=== PATIENT | female | born 1980 | race Caucasian/White ===

== ENCOUNTER 2019-10-09 13:11 | Emergency (ER) | payer MEDICAID ==
[~2019-10-09] VITALS: Ht 172.7 cm; Wt 122.5 kg
[2019-10-09] MEDS ORDERED: KEPPRA500 MG PO (13:36)
[2019-10-09] MEDS ORDERED: METHADONE HCL5 MG PO (13:37)
[2019-10-09] MEDS ORDERED: BUTALB-ACETAMI1 EACH PO (13:38)
[2019-10-09] MEDS ORDERED: PROTONIX40 MG PO (13:39)
[2019-10-09] MEDS ORDERED: CEFDINIR300 MG PO (18:13)
[2019-10-09] MEDS ORDERED: ONDANSETRON ODT8 MG PO (18:13)
== END 2019-10-09 18:32 | disposition home or self-care (01) ==
LOC: ED 13:11
DX: N39.0 Urinary tract infection, site not specified (principal); Z87.891 Personal history of nicotine dependence; Z91.030 Bee allergy status; Z88.6 Allergy status to analgesic agent; Z88.0 Allergy status to penicillin; Z79.899 Other long term (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
CPT/HCPCS: 36415; 74176; 80053; 81001; 84703; 85025; 96374; 96375; 96376; 99284-25; J0696; J1170; J2405; J7030

== ENCOUNTER 2019-12-15 18:58 | Emergency (ER) | payer SELFPAY ==
[~2019-12-15] VITALS: Ht 172.7 cm; Wt 122.5 kg
[~2019-12-15 18:58] MED LIST: BUTALB-ACETAMI1 EACH PO; CEFDINIR300 MG PO; KEPPRA500 MG PO; METHADONE HCL5 MG PO; ONDANSETRON ODT8 MG PO; PROTONIX40 MG PO
--- OUTSIDE RECORDS SUMMARY | 2019-12-15 19:00 | XMS ---
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 Guidelines Source: [facility] Guidelines Date: 04/02/2019 Care Recommendation: Florence is enrolled in the Health Home program through Coordinated [facility]. Her caser up is Kami Santamaria Vamp Throater 1 (RN). For assistance with care coordination please contact Kami at [phone] or email [email or web address]. [email or web address]. She is available Monday Thru Monday from 8am to 5pm. If Kami is not available please contact [facility] at [phone] and ask for the Case Management Department. Additional care guidelines exist for the following facilities: [facility] ( 11/04/2019 ) [facility] ( 09/02/2019 ) Care History Medical/Surgical 10/29/2019 [facility] WRONG PHONE NUMBER Please update patient phone number when seen. CHW needs to contact patient E.D. VISIT COUNT (12 MO.) 1 [facility] 2 [facility] [address] 3 [facility] TOTAL 12 NOTE: Visits indicate total known visits. ED/UCC VISIT TRACKING (12 MO.) 12/15/2019 18:[address] [facility] [place] TYPE: Emergency COMPLAINT: - VOMITING 10/24/2019 17:17 [facility]DR[facility] [place] TYPE: Emergency COMPLAINT: - SOB/COUGH DIAGNOSES: - Acute bronchitis due to other specified organisms - Personal history of nicotine dependence - Allergy status to penicillin - Bee allergy status - Cough - Other long term care phlebotomist (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 10/09/2019 13:12 SANDR[facility] Stuart TYPE: Emergency COMPLAINT: - ABD PAIN, URINE PROBLEM DIAGNOSES: - Allergy status to analgesic agent status - Allergy status to penicillin - Bee allergy status - Urinary tract infection, site not specified - Other fdc (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 - Personal history of nicotine dependence 08/30/2019 08:54 Manuel CERDA TYPE: Emergency DIAGNOSES: - Medics - Seizures - Epilepsy, unspecified, not intractable, without status epilep 07/08/2019 18:44 Manuel [facility] TYPE: Emergency DIAGNOSES: - Nausea/vomiting - Foreign body of alimentary tract, part unspecified, initial e - VOMITING 07/06/2019 10:34 [facility] TYPE: Emergency DIAGNOSES: - Chest Pain - EMESIS; COLLAR BONE PAIN - Chest pain, unspecified - Personal history of retained foreign body fully removed - Nausea with vomiting, unspecified - Gastro-esophageal reflux disease without esophagitis - Cough 07/03/2019 17:20 Manuel [facility] TYPE: Emergency DIAGNOSES: - Bronchitis, not specified as acute or chronic - chest pain 07/02/2019 13:17 Manuel [facility] TYPE: Emergency DIAGNOSES: - Chest Pain - Chest pain, unspecified - CP / R EYE PROBLEM 05/10/2019 11:19 Manuel [facility] TYPE: Emergency DIAGNOSES: - Other chest pain - Chest Pain 02/13/2019 15:13 [place] [facility] TYPE: Emergency DIAGNOSES: - Unspecified abdominal pain - Foreign body of alimentary tract, part unspecified, initial e - Other fecal abnormalities 02/03/2019 12:34 [facility] TYPE: Emergency DIAGNOSES: - CP/JAW PAIN - Chest pain, unspecified - Chest Pain - Unspecified lump in unspecified breast 02/01/2019 19:44 [place] [facility] TYPE: Emergency DIAGNOSES: - Abnormal electrocardiogram [ECG] [EKG] INPATIENT VISIT TRACKING (12 MO.) 07/08/2019 18:44 Manuel [facility] TYPE: Inpatient DIAGNOSES: - Foreign body of alimentary tract, part unspecified, initial e 02/13/2019 15:13 [place] [facility] TYPE: Medical Surgical DIAGNOSES: - Other fecal abnormalities - Foreign body of alimentary tract, part unspecified, initial e - Urinary tract infection, site not specified - Unspecified abdominal pain [email or web address]
[2019-12-15] MEDS ORDERED: PROTONIX40 MG PO (19:09)
[2019-12-15] MEDS ORDERED: ONDANSETRON ODT8 MG PO (20:33)
[2019-12-15] MEDS ORDERED: ULTRAM50 MG PO (20:33)
[2019-12-15] MEDS ORDERED: NORCO 5-325 TA1 EACH PO (20:58)
--- NOTE | 2019-12-16 11:24 | EKG ---
[facility] [address] [facility] [place] [address] abnormality in inferolateral leads. Abnormal ECG When compared with ECG of 24-OCT-2019 18:37, T wave inversion more evident in Inferior leads T wave inversion now evident in Lateral leads Confirmed by SHERRELL SHEIKH MD ([id number]) on 12/16/2019 11:24:18 AM Electronically Signed By: SHERRELL SHEIKH MD 12/16/19 1124 PATIENT NAME: FLORENCE NERI Electrocardiogram DATE OF : 84 PHYSICIAN: SHERRELL SHEIHK MD REPORT #: [id number] REPORT IS CONFIDENTIAL AND NOT TO BE RELEASED WITHOUT AUTHORIZATION
== END 2019-12-15 21:24 | disposition home or self-care (01) ==
LOC: ED 18:58
DX: M94.0 Chondrocostal junction syndrome [Tietze] (principal); G43.909 Migraine, unspecified, not intractable, without status migrainosus; Z88.0 Allergy status to penicillin; Z91.030 Bee allergy status; Z88.8 Allergy status to other drugs, medicaments and biological substances; Z79.899 Other long term (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
CPT/HCPCS: 71045; 80053; 81001; 83735; 84484; 85025; 93005; 93010; 96361; 96374; 96375; 99285-25; C9113; J1170; J2405; J7030

== ENCOUNTER 2019-12-31 17:44 | Emergency (ER) | payer SELFPAY ==
[~2019-12-31] VITALS: Ht 172.7 cm; Wt 108.9 kg
[~2019-12-31 17:44] MED LIST changes: +NORCO 5-325 TA1 EACH PO; +ULTRAM50 MG PO
--- OUTSIDE RECORDS SUMMARY | 2019-12-31 17:48 | XMS ---
PreManage Notification: FLORENCE NERI Security Heel Padder Events No recent Security Events currently on file CRITERIA MET - Group Notification - 6 ED Visits in 6 Months - [facility] - Has Care Guidelines - PDMP - [facility] - 2 Visits in 30 Days CARE PROVIDERS There are no care providers on record at this time. Guidelines Source: [facility] Guidelines Date: 04/02/2019 Care Recommendation: Florence is enrolled in the Health Home program through Coordinated Care. Her special education case manager is Kami Santamaria Marine Oiler 1 (RN). For assistance with care coordination please contact Kami at [phone] or email [email or web address]. [email or web address]. She is available Monday Thru Monday from 8am to 5pm. If Kami is not available please contact [facility] at [phone] and ask for the Case Management Department. Additional care guidelines exist for the following facilities: [facility] ( 11/04/2019 ) [facility] ( 09/02/2019 ) Care History Medical/Surgical 10/29/2019 [facility] WRONG PHONE NUMBER Please update patient phone number when seen. CHW needs to contact patient E.D. VISIT COUNT (12 MO.) 1 [facility] 2 [facility] 1 [facility] 5 [facility] 4 [facility] TOTAL 13 NOTE: Visits indicate total known visits. ED/UCC VISIT TRACKING (12 MO.) 12/31/2019 17:45 [facility] [place] TYPE: Emergency COMPLAINT: - SOB 12/15/2019 18:59 [facility] [place] TYPE: Emergency COMPLAINT: - VOMITING DIAGNOSES: - Other exterminator (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 - Chest pain, unspecified - Allergy status to other drugs, medicaments and biological sub - Migraine, unspecified, not intractable, without status migrai - Allergy status to penicillin - Chondrocostal junction syndrome [Tietze] - Bee allergy status 10/24/2019 17:17 SANDRA Stuart TYPE: Emergency COMPLAINT: - SOB/COUGH DIAGNOSES: - Acute bronchitis due to other specified organisms - Personal history of nicotine dependence - Allergy status to penicillin - Bee allergy status - Cough - Other retirement (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 10/09/2019 13:12 SANDRA Stuart TYPE: Emergency COMPLAINT: - ABD PAIN, URINE PROBLEM DIAGNOSES: - Allergy status to analgesic agent status - Allergy status to penicillin - Bee allergy status - Urinary tract infection, site not specified - Other retirement (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 - Personal history of nicotine dependence 08/30/2019 08:54 Manuel [facility] TYPE: Emergency DIAGNOSES: - Medics - Seizures - Epilepsy, unspecified, not intractable, without status epilep 07/08/2019 18:44 Manuel [facility] TYPE: Emergency DIAGNOSES: - Nausea/vomiting - Foreign body of alimentary tract, part unspecified, initial e - VOMITING 07/06/2019 10:34 [facility] TYPE: Emergency DIAGNOSES: - Chest Pain - [...] site not specified - Unspecified abdominal pain [email or web address]
== END 2019-12-31 21:54 | disposition short-term general hospital (02) ==
LOC: ED 17:44
DX: T17.800A Unspecified foreign body in other parts of respiratory tract causing asphyxiation, initial encounter (principal); E03.9 Hypothyroidism, unspecified; G43.909 Migraine, unspecified, not intractable, without status migrainosus; Z88.0 Allergy status to penicillin; Z88.8 Allergy status to other drugs, medicaments and biological substances; Z79.899 Other long term (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; X58.XXXA Exposure to other specified factors, initial encounter
CPT/HCPCS: 71046; 80053; 84484; 85025; 96365; 96375; 99285-25; J1953; J3010; J7030

== ENCOUNTER 2020-01-24 16:53 | Emergency (ER) | payer OTHER ==
[~2020-01-24] VITALS: Ht 172.7 cm; Wt 108.9 kg
--- OUTSIDE RECORDS SUMMARY | 2020-01-24 16:56 | XMS ---
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 Her cyanide case hardener is Kami Santamaria Animal Scientist 1 (RN). For assistance with care coordination please contact Kami at [phone] or email Kellee. [email or web address]. She is available Monday Thru Monday from 8am to 5pm. If Kami is not available please contact [facility] at [phone] and ask for the Case Management Department. Additional care guidelines exist for the following facilities: [facility] ( 11/04/2019 ) [facility] ( 09/02/2019 ) Care History Medical/Surgical 10/29/2019 [facility] WRONG PHONE NUMBER Please update patient phone number when seen. CHW needs to contact patient E.D. VISIT COUNT (12 MO.) 1 [facility] 2 [facility] [address] TOTAL 14 NOTE: Visits indicate total known visits. ED/UCC VISIT TRACKING (12 MO.) 01/24/2020 16:54 [facility] [place] TYPE: Emergency COMPLAINT: - URINE PROBLEM, PAIN 12/31/2019 17:45 [facility] [place] TYPE: Emergency COMPLAINT: - SOB DIAGNOSES: - Shortness of breath - Migraine, unspecified, not intractable, without status migrai - Allergy status to other drugs, medicaments and biological sub - Allergy status to penicillin - Other prison (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 - Unspecified foreign body in other parts of respiratory tract - Hypothyroidism, unspecified - Exposure to other specified factors, initial encounter 12/15/2019 18:59 [facility] [place] TYPE: Emergency COMPLAINT: - VOMITING DIAGNOSES: - Other prison (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 - Chest pain, unspecified - Allergy status to other drugs, medicaments and biological sub - Migraine, unspecified, not intractable, without status migrai - Allergy status to penicillin - Chondrocostal junction syndrome [Tietze] - Bee allergy status 10/24/2019 17:17 [facility] [place] TYPE: Emergency COMPLAINT: - SOB/COUGH DIAGNOSES: - Acute bronchitis due to other specified organisms - Personal history of nicotine dependence - Allergy status to penicillin - Bee allergy status - Cough - Other prison (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 10/09/2019 13:12 [facility] [place] TYPE: Emergency COMPLAINT: - ABD PAIN, URINE PROBLEM DIAGNOSES: - Allergy status to analgesic agent status - Allergy status to penicillin - Bee allergy status - Urinary tract infection, site not specified - Other prison (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 - Personal history of nicotine dependence 08/30/2019 08:54 Manuel [facility] TYPE: Emergency DIAGNOSES: - Medics - Seizures - Epilepsy, unspecified, not intractable, without status epilep 07/08/2019 18:44 [facility] TYPE: Emergency DIAGNOSES: - Nausea/vomiting - Foreign body of alimentary tract, part unspecified, initial e - VOMITING 07/06/2019 10:34 [facility] Jeannie CERDA TYPE: Emergency DIAGNOSES: - Chest Pain [...] [ECG] [EKG] INPATIENT VISIT TRACKING (12 MO.) 12/31/2019 23:07 Lyudmila CERDA TYPE: Medical Surgical COMPLAINT: - INHALED FOREIGN BODY; SOB DIAGNOSES: 0. Foreign body of alimentary tract, part unspecified, initial e 1. Other foreign object in other parts of respiratory tract caus 2. Opioid dependence, uncomplicated 3. Chronic inflammatory demyelinating polyneuritis 4. Other abnormalities of gait and mobility 5. Hypothyroidism, unspecified 6. Epilepsy, unspecified, not intractable, without status epilep 7. Post-traumatic stress disorder, unspecified 8. Migraine, unspecified, not intractable, without status migrai 9. Other chronic pain 10. Exposure to other specified factors, initial encounter 11. Unspecified place in single-family (private) house as the luh 12. 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 Fall on same level from slipping, tripping and stumbling with 15. Intentional self-harm by other specified means, initial encou 07/08/2019 18:44 Manuel [facility] TYPE: Inpatient DIAGNOSES: - Foreign body of alimentary tract, part unspecified, initial e 02/13/2019 15:13 [place] [facility] TYPE: Medical Surgical DIAGNOSES: - Other fecal abnormalities - Foreign body of alimentary tract, part unspecified, initial e - Urinary tract infection, site not specified - Unspecified abdominal pain [email or web address]
[2020-01-24] MEDS ORDERED: PROMETHAZINE12.5 M1 PO (19:36)
[2020-01-24] MEDS ORDERED: LEVAQUIN750 MG PO (19:36)
== END 2020-01-24 19:41 | disposition home or self-care (01) ==
LOC: ED 16:53
DX: N39.0 Urinary tract infection, site not specified (principal); E03.9 Hypothyroidism, unspecified; Z91.030 Bee allergy status; Z88.0 Allergy status to penicillin; Z88.8 Allergy status to other drugs, medicaments and biological substances; Z79.899 Other long term (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
CPT/HCPCS: 80053; 81001; 83690; 84703; 85025; 87077; 87088; 87186; 96361; 96374; 96375; 99283-25; J2270; J2405; J7030

== ENCOUNTER 2020-01-29 13:40 | Inpatient (IN) | payer OTHER ==
[~2020-01-29] VITALS: Ht 172.7 cm; Wt 115.2 kg
[~2020-01-29 13:40] MED LIST changes: +LEVAQUIN750 MG PO; +PROMETHAZINE12.5 M1 PO
--- OUTSIDE RECORDS SUMMARY | 2020-01-29 13:42 | XMS ---
PreManage Notification: FLORENCE NERI Security Chief Of Service Events No recent Security Events currently on file CRITERIA MET - Group Notification - 6 ED Visits in 6 Months - [facility] - Has Care Guidelines - PDMP - [facility] - 2 Visits in 30 Days CARE PROVIDERS DALLAS BARNETT \T\ Family Therapist Current PHONE: [phone] Guidelines Source: [facility] Guidelines Date: 04/02/2019 Care Recommendation: Florence is enrolled in the Health Home program through Coordinated Care. Her field case manager is Kami Santamaria Medical Staff Services Coordinator 1 (RN). For assistance with care coordination please contact Kami at [phone] or email Kellee. [email or web address]. She is available Monday Thru Monday from 8am to 5pm. If Kami is not available please contact [facility] at [phone] and ask for the Case Management Department. Additional care guidelines exist for the following facilities: [facility] ( 11/04/2019 ) [facility] ( 09/02/2019 ) Care History Medical/Surgical 01/27/2020 [facility] - [facility] REFERRAL CREATED- [employer] BILLPOSTER TO REVIEW PATIENT ED FREQUENCY AND USAGE. 10/29/2019 [facility] WRONG PHONE NUMBER Please update patient phone number when seen. CHW needs to contact patient E.D. VISIT COUNT (12 MO.) 1 [facility] 2 [facility] [address] [facility] TOTAL 15 NOTE: Visits indicate total known visits. ED/UCC VISIT TRACKING (12 MO.) [facility] [place] [facility] COMPLAINT: - BUG BITE 01/24/2020 16:54 [facility]DR[facility] [place] TYPE: Emergency COMPLAINT: - URINE PROBLEM, PAIN DIAGNOSES: - Bee allergy status - Dorsalgia, unspecified - Allergy status to penicillin - Urinary tract infection, site not specified - Allergy status to other drugs, medicaments and biological sub - Other residential (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 - Hypothyroidism, unspecified 12/31/2019 17:45 [facility]DR[facility] [place] TYPE: Emergency COMPLAINT: - SOB DIAGNOSES: - Shortness of breath - Migraine, unspecified, not intractable, without status migrai - Allergy status to other drugs, medicaments and biological sub - Allergy status to penicillin - Other residential (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 - Unspecified foreign body in other parts of respiratory tract - Hypothyroidism, unspecified - Exposure to other specified factors, initial encounter 12/15/2019 18:59 [facility]DR[facility] [place] TYPE: Emergency COMPLAINT: - VOMITING DIAGNOSES: - Other residential (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 - Chest pain, unspecified [...] Bee allergy status - Cough - Other residential (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 10/09/2019 13:12 SANDRA Stuart TYPE: Emergency COMPLAINT: - ABD PAIN, URINE PROBLEM DIAGNOSES: - Allergy status to analgesic agent status - Allergy status to penicillin - Bee allergy status - Urinary tract infection, site not specified - Other residential (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 - Personal history of nicotine dependence 08/30/2019 08:54 Manuel [facility]DA TYPE: Emergency DIAGNOSES: - Medics - Seizures - Epilepsy, unspecified, not intractable, without status epilep 07/08/2019 18:44 Manuel [facility] TYPE: Emergency DIAGNOSES: - Nausea/vomiting - Foreign body of alimentary tract, part unspecified, initial e - VOMITING 07/06/2019 10:34 [facility] Stanleyliana CERDA TYPE: Emergency DIAGNOSES: - Chest Pain [...] VISIT TRACKING (12 MO.) 12/31/2019 23:07 Lyudmila [facility] Glenys CERDA TYPE: Medical Surgical COMPLAINT: - INHALED [...] site not specified - Unspecified abdominal pain [email or web address]
[2020-01-30] MEDS ORDERED: HYDROCODON-ACE1 EA10 PO (09:04)
[2020-01-30] MEDS ORDERED: METHADONE HCL10 MG PO ×2 (09:04→09:05)
[2020-01-30] MEDS ORDERED: REMERON15 MG PO (12:52)
--- NOTE | 2020-02-03 09:37 | OR ---
[facility] [address], [place] [address] Signed DATE OF OPERATION: 02/02/2020 SURGEON: Abdifatah Turk MD PREOPERATIVE DIAGNOSES: 1. Morbid obesity. 2. Left lower abdominal wall cellulitis with progression to large left lower abdominal abscess. POSTOPERATIVE DIAGNOSES: 1. Morbid obesity. 2. Left lower abdominal wall cellulitis with progression to large left lower abdominal abscess. PROCEDURES PERFORMED: 1. Abdominal wall exploration with debridement of abdominal wall and necrotic fat. 2. Drainage of abdominal wall abscess and breakdown of loculations. 3. Copious irrigation of subcutaneous space with placement of drains x2. ANESTHESIA: General endotracheal; Abdifatah Mendoza CRNA. INDICATIONS: This morbidly obese 39-year-old white woman is a patient of Dr. Cinda Barfield and admitted by Dr. Leal on January 29, 2020, with quite obvious progressive abdominal wall cellulitis in the left lower quadrant. A CT scan was performed at the time of the evaluation, which showed no sign of fluid collection. She has been treated with vancomycin and other interventions and although was improved and white count now normal, has now developed an area of fluctuance. Consultation was undertaken by me earlier in the day at the request of her physician, Dr. Leal. Clearly an abscess is noted. She is admitted at this time to undergo incision and drainage of the abscess, debridement of necrotic fat as necessary. The risks of bleeding, infection, progression of infection, failure to cure the problem, cosmetic deformity, and other unforeseen complications was reviewed in detail with the patient. She understands wished to proceed. She has a number of comorbidities including methadone dependency in addition to her morbid obesity as well as psychiatric disturbances otherwise. She has exquisite sensitivity to pain and the manipulation of the abdominal wall is poorly tolerated. FINDINGS: Electronically Signed By: ABDIFATAH TURK MD 02/03/20 0937 PATIENT NAME: FLORENCE NERI OPERATIVE REPORT DATE OF : 84 REPORT #: [id number] PHYSICIAN: ABDIFATAH TURK MD PCP: NO PRIMARY CARE PHYSICIAN REPORT IS CONFIDENTIAL AND NOT TO BE RELEASED WITHOUT AUTHORIZATION [facility] [address], [place] [address] Signed The cellulitic changes and erythematous area of the left lower abdomen corresponded well to the area of the abscess. Purulent material was noted. Gram stain and cultures were obtained. Counter incisions were made medially and laterally allowing for placement of quarter-inch Hampton drains and suction debridement of necrotic fat and breakdown of extensive loculations in the subcutaneous space. Copious irrigation was undertaken allowing for clearance of the effluent completely. DESCRIPTION OF PROCEDURE: The patient was brought to the operating room, given a general endotracheal anesthetic. She had been on vancomycin intravenously administered already. After satisfactory general endotracheal anesthesia, the abdominal wall in the left side was prepared with a chlorhexidine solution and draped sterilely. An area of pointing was incised with a #15 blade. Egress of purulent material was noted. Gram stain and cultures were obtained. A hemostat was used to dissect down into the subcutaneous space, allowing for egress of more purulent material. The hemostat was directed medially and a counter incision was made, and a quarter-inch Sheldon drain passed through this and tied into a loop. Further breakdown of loculations was undertaken superiorly, inferiorly, and laterally and the suction device used to debride the necrotic lobules of fat. With similar technique, a lateral counterincision was made and a quarter-inch Sheldon drain placed there as well. It was tied in a loop as well. Further dissection with the suction device was used to debride the necrotic fat and break down loculations. Copious irrigation with a bulb syringe with sterile saline was undertaken, approximately 2 L in total used. Once the effluent was clear, re-interrogation of the space was undertaken with suction device showing apparent clearance of the necrotic tissue as well as purulence. A Kerlix gauze was placed in the central initial incision site for hemostatic purposes and layered over the abdominal wall covering the 3 incision sites as was an ABD pad and silk tape. The patient was allowed to emerge from anesthesia, extubated, and transferred to recovery room in good condition having suffered no complication. Blood loss was less than 25 mL. Sponge, needle, and instrument counts were correct x3. MD CHELY Mi/MODL /[id number] Electronically Signed By: ABDIFATAH TURK MD 02/03/20 0937 PATIENT NAME: FLORENCE NERI OPERATIVE REPORT DATE OF : 84 REPORT #: [id number] PHYSICIAN: ABDIFATAH TURK MD PCP: NO PRIMARY CARE PHYSICIAN REPORT IS CONFIDENTIAL AND NOT TO BE RELEASED WITHOUT AUTHORIZATION [address] [address] Signed cc: MD Rebekah Anders MD Copies: CINDA BARFIELD DMD, LOHITH VEERAPPA MD ~ Electronically Signed By: ABDIFATAH TURK MD 02/03/20 0937 PATIENT NAME: CHANTAL NERIVerna HARVEY OPERATIVE REPORT DATE OF : 84 REPORT #: [id number] PHYSICIAN: ABDIFATAH TURK MD PCP: NO PRIMARY CARE PHYSICIAN REPORT IS CONFIDENTIAL AND NOT TO BE RELEASED WITHOUT AUTHORIZATION
--- NOTE | 2020-02-03 09:37 | CONS ---
[facility] [address] [place], [place] [address] Signed DATE OF CONSULTATION: 02/02/2020 CONSULTING PHYSICIAN: Abdifatah Turk MD. REQUESTING PHYSICIAN: Sherrell Sheikh MD. PROBLEM: Abdominal wall cellulitis with progression to abdominal wall abscess. HISTORY OF PRESENT ILLNESS: This 39-year-old morbidly obese white woman is now a patient of Dr. Sheikh. She was admitted by Dr. Sheikh on January 29, 2020 with left abdominal wall cellulitis. A CT scan performed through the emergency room evaluation showed cellulitic change of the left lower quadrant. No sign of connection to the intraabdominal contents, specifically no diverticular fistulization or anything of that sort. She was admitted to the hospital and has been treated with intravenous antibiotics and other supportive measures. Her antibiotics have included vancomycin intravenously administered. The patient has a number of other medical problems including chronic opioid addiction for which she takes methadone currently as well as a seizure disorder for which she takes Keppra. She has had the improvement of her overall situation with her initial white count 12.0 increasing to 15.9 and now down to normal at 7.8. She has been noted on her abdominal wall however to have intense cellulitic changes and now an area of fluctuance in the left lower quadrant for which drainage is considered. She is noted to be COVID-19 negative on testing. The patient has Tnntlpg-Kyvvb-Xazzy syndrome as well, manifesting as peripheral neuropathy. She has had MRSA soft tissue infection in the past including the left medial lower leg for which she has had incision and drainage and wound packing. SOCIAL HISTORY: She is now . 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 The patient has also had a recent a urinary tract infection on January 24, 2020 related to Klebsiella for which she was taking Levaquin as an antibiotic remedy. Electronically Signed By: ABDIFATAH TURK MD 02/03/20 0937 PATIENT NAME: FLORENCE NERI CONSULTATION DATE OF : 84 REPORT #: [id number] PHYSICIAN: ABDIFATAH TURK MD PCP: NO PRIMARY CARE PHYSICIAN REPORT IS CONFIDENTIAL AND NOT TO BE RELEASED WITHOUT AUTHORIZATION [facility] [address] [place] [id number] Signed MEDICATIONS: At admission included Levaquin, Keppra, and promethazine. REVIEW OF SYSTEMS: She denies any fever or chills at this time. She does have intense pain in the left lower abdominal wall. She last ate limited amount of an omlette approximately 10:30 am today. PHYSICAL EXAMINATION: GENERAL: This is a cooperative white woman, who seems to have underlying anxiety. CHEST: Shows normal respiratory excursion without tachypnea. Pulse is regular. ABDOMEN: Quite massively obese. Left lower quadrant, there is an area about the size of my hand that has intense inflammation and peau d'orange changes as well as an area of fluctuance and exquisite tenderness. EXTREMITIES: Scarring of the left lower leg. She shows no signs of edema. VITAL SIGNS: Temperature is currently 98.1 with a pulse of 83, blood pressure 144/86, O2 saturation on room air is 95%. LAB STUDIES: Show normal electrolytes and creatinine of 0.63, glucose of 127, calcium of 7.6. Beta-hCG negative. COVID negative. Urinalysis not available. A CT scan was reviewed, which shows the cellulitic changes in the left lower abdominal wall. I reviewed the films and the reports as well. ASSESSMENT: The patient had cellulitis, presumptively treated as MRSA related based on prior history and has now had more localized erythema and now fluctuance with likely an abdominal wall abscess. Incision and drainage is clearly indicated. I discussed the risks of bleeding, infection, and so forth with her regarding drainage. Avoidance of elaborate wound care post procedure would be important in her particular circumstance. A loop drain may be most efficacious in this regard. The patient is absolutely not able to tolerate a bedside drainage under local anesthetic. She notes that she self describes an allergy to lidocaine and Novocain. That of course is not the reason for inability to drain at the bedside; it is more that she has hypersensitivity related to chronic pain and methadone treatment and no psychologic reserve to allow for any manipulation of the wound or drainage at the bedside. This is in addition to her belief in " allergy " to local anesthetics. As the patient has eaten today, she is not eligible for a general anesthetic or even Electronically Signed By: ABDIFATAH TURK MD 02/03/20 0937 PATIENT NAME: FLORENCE NERI CONSULTATION DATE OF : 84 REPORT #: [id number] PHYSICIAN: ABDIFATAH TURK MD PCP: NO PRIMARY CARE PHYSICIAN REPORT IS CONFIDENTIAL AND NOT TO BE RELEASED WITHOUT AUTHORIZATION [address] [address] Signed deep sedation for some amount of time. We will plan for a 4:30 p.m. incision and drainage of the abscess of the abdominal wall and placement of drain as appropriate. She will maintain n.p.o. status henceforth anticipating this. MD CHELY Mi/MODL /[id number] cc: Sherrell Sheikh MD Copies: SHERRELL SHEIKH MD ~ Electronically Signed By: ABDIFATAH TURK MD 02/03/20 0937 PATIENT NAME: FLORENCE NERI CONSULTATION DATE OF : 84 REPORT #: [id number] PHYSICIAN: ABDIFATAH TURK MD PCP: NO PRIMARY CARE PHYSICIAN REPORT IS CONFIDENTIAL AND NOT TO BE RELEASED WITHOUT AUTHORIZATION
[2020-02-04] MEDS ORDERED: METHADONE HCL10 MG PO (12:43)
[2020-02-04] MEDS ORDERED: DOXYCYCLINE HY100 MG PO (12:43)
== END 2020-02-04 14:25 | disposition home or self-care (01) | DRG 580 ==
LOC: ED 13:40 → MS 17:18
PROVIDERS: Surgery; ADMIT Internal Medicine
PROC: 0J980ZZ Drainage of Abdomen Subcutaneous Tissue and Fascia, Open Approach (ICD-10-PCS; principal; 2020-02-02 16:30)
DX: L03.311 Cellulitis of abdominal wall (principal); N30.00 Acute cystitis without hematuria; F11.20 Opioid dependence, uncomplicated; B95.62 Methicillin resistant Staphylococcus aureus infection as the cause of diseases classified elsewhere; L02.211 Cutaneous abscess of abdominal wall; E66.01 Morbid (severe) obesity due to excess calories; K59.09 Other constipation; G40.909 Epilepsy, unspecified, not intractable, without status epilepticus; B96.1 Klebsiella pneumoniae [K. pneumoniae] as the cause of diseases classified elsewhere; G89.4 Chronic pain syndrome; Z20.828 Contact with and (suspected) exposure to other viral communicable diseases; D73.89 Other diseases of spleen; G60.0 Hereditary motor and sensory neuropathy; G62.89 Other specified polyneuropathies; Z79.899 Other long term (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; Z88.0 Allergy status to penicillin; Z88.8 Allergy status to other drugs, medicaments and biological substances; Z88.4 Allergy status to anesthetic agent; Z87.891 Personal history of nicotine dependence; Z88.1 Allergy status to other antibiotic agents; Z91.041 Radiographic dye allergy status; Z68.38 Body mass index [BMI] 38.0-38.9, adult
CPT/HCPCS: 00400; 36415; 74177; 80048; 80053; 80202; 83605; 84703; 85025; 87040; 96375; 96376; 99285-25; J0330; J1100; J1170; J1200; J1650; J1885; J2250; J2405; J2704; J2765; J2930; J3010; J3370; J7030; J7050; J7060; J7121; Q9967; U0002

== ENCOUNTER 2020-02-10 12:39 | Emergency (ER) | payer OTHER ==
[~2020-02-10] VITALS: Ht 172.7 cm; Wt 115.2 kg
[~2020-02-10 12:39] MED LIST changes: +DOXYCYCLINE HY100 MG PO; +HYDROCODON-ACE1 EA10 PO; +METHADONE HCL10 MG PO; +REMERON15 MG PO
--- OUTSIDE RECORDS SUMMARY | 2020-02-10 12:42 | XMS ---
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 - Has Care Guidelines - PDMP - [facility] - 2 Visits in 30 Days CARE PROVIDERS DALLAS BARNETT \T\ Family Therapist Current PHONE: [phone] Guidelines Source: [facility] Guidelines Date: 04/02/2019 Care Recommendation: Florence is enrolled in the Health Home program through [facility]. Her case repairer is Kami Mcmullen Ship Engineer 1 (RN). For assistance with care coordination please contact Kami at [phone] or email Kellee. [email or web address]. She is available Monday Thru Monday from 8am to 5pm. If Kami is not available please contact [facility] at [phone] and ask for the Case Management Department. Additional care guidelines exist for the following facilities: [facility] ( 11/04/2019 ) [facility] ( 09/02/2019 ) Care History Medical/Surgical 01/27/2020 [facility] [place] [facility] - [facility] PATIENT ED FREQUENCY AND USAGE. 10/29/2019 [facility] [place] [facility] WRONG PHONE NUMBER Please update patient phone number when seen. CHW needs to contact patient Substance Use/Overdose 02/06/2020 [facility] [place] [facility] PATIENT WAS SCHEDULED FOR FOLLOWUP WITH [facility] FOR METHADONE TREATMENT 02/06/[address] RAMIREZ.\T\nbsp; WAS DISCHARGED WITH ENOUGH METHADONE TO LAST UNTIL THIS APPOINTMENT.\T\nbsp; PATIENT DID NOT SHOW UP FOR APPOINTMENT. \T\nbsp;\T\nbsp; IF PATIENT COMES TO ED FOR METHADONE TELL HER TO CALL THE [facility] TO RESCHEDULE APPOINTMENT . E.D. VISIT COUNT (12 MO.) [address] TOTAL 14 NOTE: Visits indicate total known visits. ED/UCC VISIT TRACKING (12 MO.) 02/10/2020 12:39 [facility] [place] TYPE: Emergency COMPLAINT: - POST OP PROBLEM 01/29/2020 13:40 [facility] [place] TYPE: Emergency COMPLAINT: - BUG BITE 01/24/2020 16:54 [facility] [place] TYPE: Emergency COMPLAINT: - URINE PROBLEM, PAIN DIAGNOSES: - Bee allergy status - Dorsalgia, unspecified - Allergy status to penicillin - Urinary tract infection, site not specified - Allergy status to other drugs, medicaments and biological sub - Other longterm (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 - Hypothyroidism, unspecified 12/31/2019 17:45 [facility] [place] TYPE: Emergency COMPLAINT: - SOB DIAGNOSES: - Shortness of breath - Migraine, unspecified, not intractable, without status migrai - Allergy status to other drugs, medicaments and biological sub - Allergy status to penicillin - Other keno terminal operator (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 - Unspecified foreign body in other parts of respiratory tract - Hypothyroidism, unspecified - Exposure to other specified factors, initial encounter 12/15/2019 18:59 [facility] [place] TYPE: Emergency COMPLAINT: - VOMITING DIAGNOSES: - Other keno terminal operator (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 - Chest pain, unspecified [...] Bee allergy status - Cough - Other keno terminal operator (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 10/09/2019 13:12 [facility] [place] TYPE: Emergency COMPLAINT: - ABD PAIN, URINE PROBLEM DIAGNOSES: - Allergy status to analgesic agent status - Allergy status to penicillin - Bee allergy status - Urinary tract infection, site not specified - Other longterm (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 - Personal history of nicotine dependence 08/30/2019 08:54 [facility] TYPE: Emergency DIAGNOSES: - Medics - Seizures - Epilepsy, unspecified, not intractable, without status epilep 07/08/2019 18:44 [facility] TYPE: Emergency DIAGNOSES: - Nausea/vomiting - Foreign body of alimentary tract, part unspecified, initial e - VOMITING 07/06/2019 10:34 [facility] [place] [facility] TYPE: Emergency DIAGNOSES: - Chest Pain [...] unspecified, initial e - Other fecal abnormalities INPATIENT VISIT TRACKING (12 MO.) 01/29/2020 17:18 [facility] TYPE: Medical Surgical COMPLAINT: - ABD WALL CELLULITIS DIAGNOSES: - Radiographic dye allergy status - Other specified polyneuropathies - Cutaneous abscess of abdominal wall - Opioid dependence, uncomplicated - Morbid (severe) obesity due to excess calories - Other longterm (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 - Acute cystitis without hematuria - Other constipation - Allergy status to anesthetic agent status - Contact with and (suspected) exposure to other viral communic - Allergy status to other drugs, medicaments and biological sub - Chronic pain syndrome - Personal history of nicotine dependence - Allergy status to penicillin - Klebsiella pneumoniae [K. pneumoniae] as the cause of disease - Allergy status to other antibiotic agents status - Methicillin resistant Staphylococcus aureus infection as the - Cellulitis of abdominal wall - Hereditary motor and sensory neuropathy - Epilepsy, unspecified, not intractable, without status epilep - Other diseases of spleen - Body mass index (BMI) 38.0-38.9, adult 12/31/2019 23:07 [facility] TYPE: Medical Surgical [...] site not specified - Unspecified abdominal pain [email or web address]
== END 2020-02-10 16:46 | disposition home or self-care (01) ==
LOC: ED 12:39
DX: G89.18 Other acute postprocedural pain (principal); R10.32 Left lower quadrant pain; E03.9 Hypothyroidism, unspecified; G43.909 Migraine, unspecified, not intractable, without status migrainosus; Z87.891 Personal history of nicotine dependence; Z91.040 Latex allergy status; Z88.6 Allergy status to analgesic agent; Z88.0 Allergy status to penicillin; Z88.8 Allergy status to other drugs, medicaments and biological substances; Z79.899 Other long term (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
CPT/HCPCS: 99283

== ENCOUNTER → 2020-05-05 | Emergency (ER) | payer OTHER ==
[~2020-05-05] VITALS: Ht 172.7 cm; Wt 114.8 kg
--- OUTSIDE RECORDS SUMMARY | 2020-05-05 11:34 | XMS ---
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 Her case picker is Kami Mcmullen Asphalt Paving Superintendent 1 (RN). For assistance with care coordination please contact Kami at [phone] or email Kellee. [email or web address]. She is available Monday Thru Monday from 8am to 5pm. If Kami is not available please contact [facility] at [phone] and ask for the Case Management Department. Additional care guidelines exist for the following facilities: [facility] ( 11/04/2019 ) [facility] ( 09/02/2019 ) Care History Substance Use/Overdose 02/06/2020 [facility] PATIENT WAS SCHEDULED FOR FOLLOWUP WITH [facility] FOR METHADONE TREATMENT 02/06/[address] RAMIREZ.\T\nbsp; WAS DISCHARGED WITH ENOUGH METHADONE TO LAST UNTIL THIS APPOINTMENT.\T\nbsp; PATIENT DID NOT SHOW UP FOR APPOINTMENT. \T\nbsp;\T\nbsp; IF PATIENT COMES TO ED FOR METHADONE TELL HER TO CALL THE [facility] TO RESCHEDULE APPOINTMENT . Medical/Surgical 02/11/2020 [facility] - PATIENT HAS BEEN REFERRED TO DR PRESCOTT, DR RAMIREZ FOR PAIN MGMT WHEN PATIENT WAS LAST HOSPITALIZED ALL APTS WERE SCHEDULED. PATIENT NO SHOWED TO FOLLOW UP APTS. - PATIENT WAS SET UP WITH [employer] FOR FOLLOW UP APT AND NO SHOWED TO THE APT. - PATIENT HAS BEEN PROVIDED TRANSPORTATION NUMBER FOR TO AND FROM APTS. - CHW IS UNABLE TO CONTACT PATIENT AT CURRENT HOTEL RESIDENCE- DOES NOT RETURN CALLS. 01/27/2020 [facility] - [facility] REFERRAL CREATED- [facility] GAS ENGINE OPERATOR GENERATORS TO REVIEW PATIENT ED FREQUENCY AND USAGE. 10/29/2019 [facility] WRONG PHONE NUMBER Please update patient phone number when seen. CHW needs to contact patient E.D. VISIT COUNT (12 MO.) 1 Snehal Dennis [address] [place], [place] [address]Breanna [address] [place] [address] TOTAL 14 NOTE: Visits indicate total known visits. ED/UCC VISIT TRACKING (12 MO.) 05/05/2020 11:31 [facility] [place] TYPE: Emergency COMPLAINT: - CHEST PAIN 02/10/2020 12:39 [facility] [place] TYPE: Emergency COMPLAINT: - POST OP PROBLEM DIAGNOSES: - Other marine 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 superintendent (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 - Latex allergy status - Allergy status to other drugs, medicaments and biological sub - Other acute postprocedural pain - Personal history of nicotine dependence - Hypothyroidism, unspecified - Allergy status to penicillin - Migraine, unspecified, not intractable, without status migrai - Left lower quadrant pain - Allergy status to analgesic agent status 01/29/2020 13:[address] [facility] [place] TYPE: Emergency COMPLAINT: - BUG BITE 01/24/2020 16:54 [facility] [place] TYPE: Emergency COMPLAINT: - URINE PROBLEM, PAIN DIAGNOSES: - Bee allergy status - Dorsalgia, unspecified - Allergy status to penicillin - Urinary tract infection, site not specified - Allergy status to other drugs, medicaments and biological sub - Other marine 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 superintendent (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 - Hypothyroidism, unspecified 12/31/2019 17:45 [facility]be[facility]i [facility] [place] TYPE: Emergency COMPLAINT: - SOB DIAGNOSES: - Shortness of breath - Migraine, unspecified, not intractable, without status migrai - Allergy status to other drugs, medicaments and biological sub - Allergy status to penicillin - Other marine 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 superintendent (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 - Unspecified foreign body in other parts of respiratory tract - Hypothyroidism, unspecified - Exposure to other specified factors, initial encounter 12/15/2019 18:59 [facility] [place] TYPE: Emergency COMPLAINT: - VOMITING DIAGNOSES: - Other penitentiary (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 - Chest pain, unspecified [...] Bee allergy status - Cough - Other penitentiary (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 10/09/2019 13:12 [facility] [place] TYPE: Emergency COMPLAINT: - ABD PAIN, URINE PROBLEM DIAGNOSES: - Allergy status to analgesic agent status - Allergy status to penicillin - Bee allergy status - Urinary tract infection, site not specified - Other marine 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 superintendent (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 - Personal history of nicotine dependence 08/30/2019 08:54 [facility] TYPE: Emergency DIAGNOSES: - Medics - Seizures - Epilepsy, unspecified, not intractable, without status epilep 07/08/2019 18:44 [facility] TYPE: Emergency DIAGNOSES: - Nausea/vomiting - Foreign body of alimentary tract, part unspecified, initial e - VOMITING 07/06/2019 10:34 [facility] TYPE: Emergency DIAGNOSES: - Chest Pain - [...] - Other chest pain - Chest Pain INPATIENT VISIT TRACKING (12 MO.) 01/29/2020 17:18 [facility] TYPE: Medical Surgical COMPLAINT: - ABD WALL CELLULITIS DIAGNOSES: - Radiographic dye allergy status - Other specified polyneuropathies - Cutaneous abscess of abdominal wall - Opioid dependence, uncomplicated - Morbid (severe) obesity due to excess calories - Other marine 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 superintendent (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 - Acute cystitis without [...] mass index (BMI) 38.0-38.9, adult 12/31/2019 23:07 Cassieadalberto Atul ShawnBreanna [facility] TYPE: Medical Surgical COMPLAINT: - INHALED [...] of alimentary tract, part unspecified, initial e [email or web address]
--- NOTE | 2020-05-06 13:19 | EKG ---
[facility] [address] [facility] [place] [address] Signed Sinus tachycardia T wave abnormality, consider inferior ischemia Abnormal ECG When compared with ECG of 15-DEC-2019 19:04, T wave inversion less evident in Inferior leads T wave inversion no longer evident in Lateral leads Confirmed by MIGUEL SETH DO ([id number]) on 05/06/2020 1:19:31 PM Electronically Signed By: MIGUEL SETH DO 05/06/20 1319 PATIENT NAME: FLORENCE NERI Electrocardiogram DATE OF : 84 PHYSICIAN: MIGUEL SETH DO REPORT #: [id number] REPORT IS CONFIDENTIAL AND NOT TO BE RELEASED WITHOUT AUTHORIZATION
== END ==
LOC: ED 11:30
DX: R07.9 Chest pain, unspecified (principal); F43.10 Post-traumatic stress disorder, unspecified; G43.909 Migraine, unspecified, not intractable, without status migrainosus; Z87.891 Personal history of nicotine dependence; Z88.0 Allergy status to penicillin; Z88.8 Allergy status to other drugs, medicaments and biological substances; Z88.6 Allergy status to analgesic agent; Z91.030 Bee allergy status
CPT/HCPCS: 36415; 71045; 80053; 83735; 84484; 85025; 93005; 93010; 99285-25

== ENCOUNTER 2020-05-11 15:47 | Emergency (ER) | payer OTHER ==
[~2020-05-11] VITALS: Ht 172.7 cm; Wt 114.8 kg
--- OUTSIDE RECORDS SUMMARY | 2020-05-11 15:50 | XMS ---
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 Her case consultant is Kami Santamaria Processing Clerk 1 (RN). For assistance with care coordination please contact Kami at [phone] or email Kellee. [email or web address]. She is available Monday Thru Monday from 8am to 5pm. If Kami is not available please contact [facility] at [phone] and ask for the Case Management Department. Additional care guidelines exist for the following facilities: [facility] ( 11/04/2019 ) [facility] ( 09/02/2019 ) Care History Medical/Surgical 02/11/2020 [facility] - PATIENT HAS BEEN REFERRED TO DR PRESCOTT, DR RAMIREZ FOR PAIN MGMT WHEN PATIENT WAS LAST HOSPITALIZED ALL APTS WERE SCHEDULED. PATIENT NO SHOWED TO FOLLOW UP APTS. - PATIENT WAS SET UP WITH [employer] FOR FOLLOW UP APT AND NO SHOWED TO THE APT. - PATIENT HAS BEEN PROVIDED TRANSPORTATION NUMBER FOR TO AND FROM APTS. - CHW IS UNABLE TO CONTACT PATIENT AT CURRENT HOTEL RESIDENCE- DOES NOT RETURN CALLS. 10/29/2019 [facility] WRONG PHONE NUMBER Please update patient phone number when seen. CHW needs to contact patient Substance Use/Overdose 02/06/2020 [facility] PATIENT WAS SCHEDULED FOR FOLLOWUP WITH [facility] FOR METHADONE TREATMENT 02/06/[address] RAMIREZ.\T\nbsp; WAS DISCHARGED WITH ENOUGH METHADONE TO LAST UNTIL THIS APPOINTMENT.\T\nbsp; PATIENT DID NOT SHOW UP FOR APPOINTMENT. \T\nbsp;\T\nbsp; IF PATIENT COMES TO ED FOR METHADONE TELL HER TO CALL THE [facility] TO RESCHEDULE APPOINTMENT . E.D. VISIT COUNT (12 MO.) 1 Greek Jeannie [address] [place] [address] 9 [facility]. TOTAL 14 NOTE: Visits indicate total known visits. ED/UCC VISIT TRACKING (12 MO.) 05/11/2020 15:[address] [facility] [place] TYPE: Emergency COMPLAINT: - SEIZURE 05/05/2020 11:31 [facility] [place] TYPE: Emergency COMPLAINT: - CHEST PAIN DIAGNOSES: - Allergy status to analgesic agent status - Bee allergy status - Chest pain, unspecified - Personal history of nicotine dependence - Migraine, unspecified, not intractable, without status migrai - Allergy status to penicillin - Allergy status to other drugs, medicaments and biological sub - Post-traumatic stress disorder, unspecified 02/10/2020 12:39 [facility] [place] TYPE: Emergency COMPLAINT: - POST OP PROBLEM DIAGNOSES: - Other terminal carman (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 - Latex allergy status - Allergy status to other drugs, medicaments and biological sub - Other acute postprocedural pain - Personal history of nicotine dependence - Hypothyroidism, unspecified - Allergy status to penicillin - Migraine, unspecified, not intractable, without status migrai - Left lower quadrant pain - Allergy status to analgesic agent status 01/29/2020 13:40 [facility] [place] TYPE: Emergency COMPLAINT: - BUG BITE 01/24/2020 16:54 [facility] [place] TYPE: Emergency COMPLAINT: - URINE PROBLEM, PAIN DIAGNOSES: - Bee allergy status - Dorsalgia, unspecified - Allergy status to penicillin - Urinary tract infection, site not specified - Allergy status to other drugs, medicaments and biological sub - Other penitentiary (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 - Hypothyroidism, unspecified 12/31/2019 17:45 [facility]ner Michi [facility] [place] TYPE: Emergency COMPLAINT: - SOB DIAGNOSES: - Shortness of breath - Migraine, unspecified, not intractable, without status migrai - Allergy status to other drugs, medicaments and biological sub - Allergy status to penicillin - Other terminal carman (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 - Unspecified foreign body in other parts of respiratory tract - Hypothyroidism, unspecified - Exposure to other specified factors, initial encounter 12/15/2019 18:59 [facility]ner HBreanna [facility] [place] TYPE: Emergency COMPLAINT: - VOMITING DIAGNOSES: - Other terminal carman (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 - Chest pain, unspecified - Allergy status to other drugs, medicaments and biological sub - Migraine, unspecified, not intractable, without status migrai - Allergy status to penicillin - Chondrocostal junction syndrome [Tietze] - Bee allergy status 10/24/2019 17:[address] [facility] [address] [facility] [place] TYPE: Emergency COMPLAINT: - SOB/COUGH DIAGNOSES: - Acute bronchitis due to other specified organisms - Personal history of nicotine dependence - Allergy status to penicillin - Bee allergy status - Cough - Other terminal carman (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 10/09/2019 13:12 [facility] TYPE: Emergency COMPLAINT: - ABD PAIN, URINE PROBLEM DIAGNOSES: - Allergy status to analgesic agent status - Allergy status to penicillin - Bee allergy status - Urinary tract infection, site not specified - Other terminal carman (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 - Personal history of nicotine dependence 08/30/2019 08:54 [facility] TYPE: Emergency DIAGNOSES: - Medics - Seizures - Epilepsy, unspecified, not intractable, without status epilep 07/08/2019 18:44 Manuel [facility] TYPE: Emergency DIAGNOSES: - Nausea/vomiting - Foreign body of alimentary tract, part unspecified, initial e - VOMITING 07/06/2019 10:34 [facility] Marlboroliana [facility] TYPE: Emergency DIAGNOSES: - Chest Pain [...] unspecified - CP / R EYE PROBLEM INPATIENT VISIT TRACKING (12 MO.) 01/29/2020 17:18 [facility] [place] TYPE: Medical Surgical COMPLAINT: - ABD WALL CELLULITIS DIAGNOSES: - Radiographic dye allergy status - Other specified polyneuropathies - Cutaneous abscess of abdominal wall - Opioid dependence, uncomplicated - Morbid (severe) obesity due to excess calories - Other terminal carman (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 - Acute cystitis without [...] index (BMI) 38.0-38.9, adult 12/31/2019 23:07 Cassieadalberto Atlu [facility] TYPE: Medical Surgical COMPLAINT: - INHALED [...] of alimentary tract, part unspecified, initial e [email or web address]
[2020-05-11] MEDS ORDERED: KEPPRA500 MG PO (19:02)
== END 2020-05-11 19:32 | disposition home or self-care (01) ==
LOC: ED 15:47
DX: R56.9 Unspecified convulsions (principal); F43.10 Post-traumatic stress disorder, unspecified; G43.909 Migraine, unspecified, not intractable, without status migrainosus; E03.9 Hypothyroidism, unspecified; Z87.891 Personal history of nicotine dependence; Z88.6 Allergy status to analgesic agent; Z88.0 Allergy status to penicillin; Z91.030 Bee allergy status; Z88.8 Allergy status to other drugs, medicaments and biological substances; Z79.899 Other long term (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
CPT/HCPCS: 71045; 80053; 84484; 84703; 85025; 99284-25

== ENCOUNTER 2020-06-25 07:49 | Emergency (ER) | payer OTHER ==
[~2020-06-25] VITALS: Ht 172.7 cm; Wt 117.9 kg
--- OUTSIDE RECORDS SUMMARY | 2020-06-25 07:52 | XMS ---
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 Her casework specialist is Kami Santamaria Fuel Cell Builder 1 (RN). For assistance with care coordination please contact Kami at [phone] or email [email or web address]. [email or web address]. She is available Monday Thru Monday from 8am to 5pm. If Kami is not available please contact [facility] at [phone] and ask for the Case Management Department. Additional care guidelines exist for the following facilities: [facility] ( 11/04/2019 ) [facility] [place] Care History Medical/Surgical 02/11/2020 [facility] - PATIENT HAS BEEN REFERRED TO DR PRESCOTT, DR RAMIREZ FOR PAIN MGMT WHEN PATIENT WAS LAST HOSPITALIZED ALL APTS WERE SCHEDULED. PATIENT NO SHOWED TO FOLLOW UP APTS. - PATIENT WAS SET UP WITH [email or web address] FOR FOLLOW UP APT AND NO SHOWED TO THE APT. - PATIENT HAS BEEN PROVIDED TRANSPORTATION NUMBER FOR TO AND FROM APTS. - CHW IS UNABLE TO CONTACT PATIENT AT CURRENT HOTEL RESIDENCE- DOES NOT RETURN CALLS. 10/29/2019 [facility] WRONG PHONE NUMBER Please update patient phone number when seen. CHW needs to contact patient Substance Use/Overdose 02/06/2020 [facility] PATIENT WAS SCHEDULED FOR FOLLOWUP WITH [facility] FOR METHADONE TREATMENT 02/06/[address] RAMIREZ.\T\nbsp; WAS DISCHARGED WITH ENOUGH METHADONE TO LAST UNTIL THIS APPOINTMENT.\T\nbsp; PATIENT DID NOT SHOW UP FOR APPOINTMENT. \T\nbsp;\T\nbsp; IF PATIENT COMES TO ED FOR METHADONE TELL HER TO CALL THE JIMENA MATOS TO RESCHEDULE APPOINTMENT . E.D. VISIT COUNT (12 MO.) 1 Snehal Dennis [address] [place] [address] 10 [facility]. TOTAL 15 NOTE: Visits indicate total known visits. 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 - Hypothyroidism, unspecified - Personal history of nicotine dependence - Post-traumatic stress disorder, unspecified - Allergy status to analgesic agent - Unspecified convulsions 05/05/2020 11:31 [facility] [place] TYPE: Emergency COMPLAINT: - CHEST PAIN DIAGNOSES: - Allergy status to analgesic agent - Bee allergy status - Chest pain, unspecified - Personal history of nicotine dependence - Migraine, unspecified, not intractable, without status migrainosus - Allergy status to penicillin - Allergy status to other drugs, medicaments and biological substances - Post-traumatic stress disorder, unspecified 02/10/2020 12:39 [facility] [place] TYPE: Emergency COMPLAINT: - POST OP PROBLEM DIAGNOSES: - 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 - Latex allergy status - Allergy status to other drugs, medicaments and biological substances - Other acute postprocedural pain - Personal history of nicotine dependence - Hypothyroidism, unspecified - Allergy status to penicillin - Migraine, unspecified, not intractable, without status migrainosus - Left lower quadrant pain - Allergy status to analgesic agent 01/29/2020 13:40 [facility] [place] TYPE: Emergency COMPLAINT: - BUG BITE 01/24/2020 16:54 [facility]DR[facility] Beebemadison EscobarBreanna Gil [place] TYPE: Emergency COMPLAINT: - URINE PROBLEM, PAIN DIAGNOSES: - Bee allergy status - Dorsalgia, unspecified - Allergy status to penicillin - Urinary tract infection, site not specified - Allergy status to other drugs, medicaments and biological substances - 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 - Hypothyroidism, unspecified 12/31/2019 17:45 [facility] [place] TYPE: Emergency COMPLAINT: - SOB DIAGNOSES: - Shortness of breath - Migraine, unspecified, not intractable, without status migrainosus - Allergy status to other drugs, medicaments and biological substances - Allergy status to penicillin - 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 - Unspecified foreign body in other parts of respiratory tract causing asphyxiation, initial encounter - Hypothyroidism, unspecified - Exposure to other specified factors, initial encounter 12/15/2019 18:59 [facility] [place] TYPE: Emergency COMPLAINT: - VOMITING DIAGNOSES: - 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 - Chest pain, unspecified - Allergy status to other drugs, medicaments and biological substances - Migraine, unspecified, not intractable, without status migrainosus - Allergy status to penicillin - 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] - Bee allergy status 10/24/2019 17:17 [facility] [place] TYPE: Emergency COMPLAINT: - SOB/COUGH DIAGNOSES: - Acute bronchitis due to other specified organisms - Personal history of nicotine dependence - Allergy status to penicillin - Bee allergy status - Cough - 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 10/09/2019 13:12 SANDRA Stuart TYPE: Emergency COMPLAINT: - ABD PAIN, URINE PROBLEM DIAGNOSES: - Allergy status to analgesic agent - Allergy status to penicillin - Bee allergy status - Urinary tract infection, site not specified - 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 - Personal history of nicotine dependence 08/30/2019 08:54 Manuel CERDA TYPE: Emergency DIAGNOSES: - Medics - Seizures - Epilepsy, unspecified, not intractable, without status epilepticus 07/08/2019 18:44 Manuel CERDA TYPE: Emergency DIAGNOSES: - Nausea/vomiting - Foreign body of alimentary tract, part unspecified, initial encounter - VOMITING 07/06/2019 10:34 [facility] Jeannie CERDA TYPE: Emergency DIAGNOSES: - Chest [...] obesity due to excess calories - 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 pneumoniae] as the cause of diseases classified elsewhere - Allergy status to other antibiotic agents - Methicillin resistant Staphylococcus aureus infection as the cause of diseases classified elsewhere - Cellulitis of abdominal wall - Hereditary motor and sensory neuropathy - Epilepsy, unspecified, not intractable, without status epilepticus - Other diseases of spleen - Body mass index [BMI] 38.0-38.9, adult 12/31/2019 23:07 Lyudmila CERDA TYPE: Medical Surgical COMPLAINT: - INHALED FOREIGN BODY; SOB DIAGNOSES: 0. Foreign body of alimentary tract, part unspecified, initial encounter 1. Other foreign object in other parts of respiratory tract causing other injury, initial encounter 2. Opioid dependence, uncomplicated 3. Chronic inflammatory demyelinating polyneuritis 4. Other abnormalities of gait and mobility 5. Hypothyroidism, unspecified 6. Epilepsy, unspecified, not intractable, without status epilepticus 7. Post-traumatic stress disorder, unspecified 8. Migraine, unspecified, not intractable, without status migrainosus 9. Other chronic pain 10. Exposure to other specified factors, initial encounter 11. Unspecified place in single-family (private) house as the place of occurrence of the external cause 12. 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 Fall on same level from slipping, tripping and stumbling without subsequent striking against object, initial encounter 15. Intentional self-harm by other specified means, initial encounter 07/08/2019 18:44 [place] Sheeba CERDA TYPE: Inpatient DIAGNOSES: - Foreign body of alimentary tract, part unspecified, initial encounter [email or web address]
[2020-06-25] MEDS ORDERED: BACTRIM DS TAB1 EACH PO (14:01)
[2020-06-25] MEDS ORDERED: NORCO 5-325 TA1 EACH PO (14:01)
== END 2020-06-25 14:05 | disposition home or self-care (01) ==
LOC: ED 07:49
DX: G43.909 Migraine, unspecified, not intractable, without status migrainosus (principal); R10.32 Left lower quadrant pain; Z88.8 Allergy status to other drugs, medicaments and biological substances; Z88.6 Allergy status to analgesic agent; Z88.0 Allergy status to penicillin; Z91.030 Bee allergy status; Z79.899 Other long term (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
CPT/HCPCS: 70450; 74176; 76830; 76856; 80053; 81001; 83690; 84703; 85025; 96372; 99284-25; J0780; J1200; J2270

== ENCOUNTER 2020-07-03 14:24 | Emergency (ER) | payer OTHER ==
[~2020-07-03] VITALS: Ht 172.7 cm; Wt 117.9 kg
[~2020-07-03 14:24] MED LIST changes: +BACTRIM DS TAB1 EACH PO
--- OUTSIDE RECORDS SUMMARY | 2020-07-03 14:26 | XMS ---
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 Guidelines Date: 04/02/2019 Care Recommendation: Florence, is enrolled in the Health Home program through Coordinated Care. Her case management director is Kami Santamaria Dustless Operator 1 (RN). For assistance with care coordination please contact Kami at [phone] or email [email or web address]. [email or web address]. She is available Monday Thru Monday from 8am to 5pm. If Kami is not available please contact [facility] at [phone] and ask for the Case Management Department. Additional care guidelines exist for the following facilities: [facility] ( 11/04/2019 ) [facility] [place] Care History Medical/Surgical 02/11/2020 [facility] - PATIENT HAS BEEN REFERRED TO DR PRESCOTT, DR RAMIREZ FOR PAIN MGMT WHEN PATIENT WAS LAST HOSPITALIZED ALL APTS WERE SCHEDULED. PATIENT NO SHOWED TO FOLLOW UP APTS. - PATIENT WAS SET UP WITH [employer] FOR FOLLOW UP APT AND NO SHOWED [...] . E.D. VISIT COUNT (12 MO.) [address] [facility] TOTAL 14 NOTE: Visits indicate total known visits. ED/UCC VISIT TRACKING (12 MO.) 07/03/2020 14:24 [facility] [place] TYPE: Emergency COMPLAINT: - CHOKING 06/25/2020 07:50 [facility] [place] TYPE: Emergency COMPLAINT: - ABD PAIN, HEADACHE DIAGNOSES: - Allergy status to other drugs, medicaments and biological substances - Migraine, unspecified, not intractable, without status migrainosus - Allergy status to penicillin - Allergy status to analgesic agent - Bee allergy status - Left lower quadrant pain - Headache, unspecified - Other keno terminal operator (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 05/11/2020 15:48 [facility] [place] TYPE: Emergency COMPLAINT: - SEIZURE DIAGNOSES: - Bee allergy status - Allergy status to other drugs, medicaments and biological substances - Allergy status to penicillin - Migraine, unspecified, not intractable, without status migrainosus - Other keno terminal operator (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 - Hypothyroidism, unspecified - [...] - POST OP PROBLEM DIAGNOSES: - Other keno terminal operator (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 - Latex allergy status [...] drugs, medicaments and biological substances - Other keno terminal operator (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 - Hypothyroidism, unspecified 12/31/2019 [...] terminal operator (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 10/09/2019 13:12 [facility] [place] TYPE: Emergency COMPLAINT: - ABD PAIN, URINE PROBLEM DIAGNOSES: - Allergy status to analgesic agent - Allergy status to penicillin - Bee allergy status - Urinary tract infection, site not specified - Other keno terminal operator (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 - Personal history of nicotine dependence 08/30/2019 08:54 Manuel CERDA TYPE: Emergency DIAGNOSES: - Medics - Seizures - Epilepsy, unspecified, not intractable, without status epilepticus 07/08/2019 18:44 Manuel CERDA TYPE: Emergency DIAGNOSES: - Nausea/vomiting - Foreign body of alimentary tract, part unspecified, initial encounter - VOMITING 07/06/2019 10:[facility] DIAGNOSES: - Chest Pain - EMESIS; COLLAR BONE PAIN - Chest pain, unspecified - Personal history of retained foreign body fully removed - Nausea with vomiting, unspecified - Gastro-esophageal reflux disease without esophagitis - Cough 07/03/2019 17:20 Manuel CERDA TYPE: Emergency DIAGNOSES: - Bronchitis, not specified as acute or chronic - chest pain INPATIENT VISIT TRACKING (12 MO.) 01/29/2020 17:18 SANDRA Stuart TYPE: Medical Surgical COMPLAINT: - ABD WALL CELLULITIS DIAGNOSES: - Radiographic dye allergy status - Other specified polyneuropathies - Cutaneous abscess of abdominal wall - Opioid dependence, uncomplicated - Morbid (severe) obesity due to excess calories - Other keno terminal operator (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 - Acute cystitis without [...] other specified means, initial encounter 07/08/2019 18:44 Manuel CERDA TYPE: Inpatient DIAGNOSES: - Foreign body of alimentary tract, part unspecified, initial encounter [email or web address]
--- NOTE | 2020-07-04 10:59 | EKG ---
[facility] [address] [facility] [place], [place] [address] Signed Sinus tachycardia T wave abnormality, consider inferior ischemia Abnormal ECG When compared with ECG of 05-MAY-2020 11:38, No significant change was found Confirmed by MIGUEL SETH DO ([id number]) on 07/04/2020 10:59:08 AM Electronically Signed By: MIGUEL SETH DO 07/04/20 1059 PATIENT NAME: TYLER NERIJOSE HARVEY Electrocardiogram DATE OF : 84 PHYSICIAN: MIGUEL SETH DO REPORT #: [id number] REPORT IS CONFIDENTIAL AND NOT TO BE RELEASED WITHOUT AUTHORIZATION
== END 2020-07-03 17:03 | disposition home or self-care (01) ==
LOC: ED 14:24
DX: R07.89 Other chest pain (principal); F43.10 Post-traumatic stress disorder, unspecified; E03.9 Hypothyroidism, unspecified; Z88.8 Allergy status to other drugs, medicaments and biological substances; Z88.0 Allergy status to penicillin; Z91.030 Bee allergy status; Z88.6 Allergy status to analgesic agent; Z88.1 Allergy status to other antibiotic agents; Z79.899 Other long term (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
CPT/HCPCS: 36415; 71045; 80053; 84484; 85025; 93005; 93010; 99284-25

== ENCOUNTER 2020-08-17 00:26 | Emergency (ER) | payer OTHER ==
[~2020-08-17] VITALS: Ht 172.7 cm; Wt 117.6 kg
--- OUTSIDE RECORDS SUMMARY | 2020-08-17 00:30 | XMS ---
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 Her window caser is Kami Mcmullen Teleradiologist 1 (RN). For assistance with care coordination please contact Kami at [phone] or email Kellee. [email or web address]. She is available Monday Thru Monday from 8am to 5pm. If Kami is not available please contact [facility] at [phone] and ask for the Case Management Department. Additional care guidelines exist for the following facilities: [facility] ( 11/04/2019 ) [facility] ( 09/02/2019 ) Care History Substance Use/Overdose 02/06/2020 [facility] PATIENT WAS SCHEDULED FOR FOLLOWUP WITH [facility] FOR METHADONE TREATMENT 02/06/[address] RAMIREZ.\T\nbsp; WAS DISCHARGED WITH ENOUGH METHADONE TO LAST UNTIL THIS APPOINTMENT.\T\nbsp; PATIENT DID NOT SHOW UP FOR APPOINTMENT. \T\nbsp;\T\nbsp; IF PATIENT COMES TO ED FOR METHADONE TELL HER TO CALL THE JIMENA MATOS TO RESCHEDULE APPOINTMENT . Medical/Surgical 07/13/2020 [facility] Care Recommendation: - PLEASE REVIEW PDMP ON THE TONY - USE EXTREME CAUTION IN GIVING NARCOTICS. - Avoid Discharge Narcotic prescriptions if at all possible. Physician discretion. 02/11/2020 [facility] - PATIENT HAS BEEN REFERRED TO DR PRESCOTT, DR RAMIREZ FOR PAIN MGMT WHEN PATIENT WAS LAST HOSPITALIZED ALL APTS WERE SCHEDULED. PATIENT NO SHOWED TO FOLLOW UP APTS. - PATIENT WAS SET UP WITH [employer] FOR FOLLOW UP APT AND NO SHOWED TO THE APT. - PATIENT HAS BEEN PROVIDED TRANSPORTATION NUMBER FOR TO AND FROM APTS. - CHW IS UNABLE TO CONTACT PATIENT AT CURRENT HOT RESIDENCE- DOES NOT RETURN CALLS. 10/29/2019 [facility] WRONG PHONE NUMBER Please update patient phone number when seen. CHW needs to contact patient E.D. VISIT COUNT (12 MO.) [address] [place], [place] [address]Breanna [address] [place] [address] TOTAL 13 NOTE: Visits indicate total known visits. ED/UCC VISIT TRACKING (12 MO.) 08/17/2020 00:27 [facility] [place] TYPE: Emergency COMPLAINT: - POSSIBLE BUG BITE 07/03/2020 14:24 [facility] [place] TYPE: Emergency COMPLAINT: - CHOKING DIAGNOSES: - Other longterm (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 - Hypothyroidism, unspecified - Other chest pain - Allergy status to other antibiotic agents - Bee allergy status - Allergy status to penicillin - Allergy status to analgesic agent - Allergy status to other drugs, medicaments and biological substances - Post-traumatic stress disorder, unspecified 06/25/2020 07:50 [facility] HBreanna [place] TYPE: Emergency COMPLAINT: - ABD PAIN, HEADACHE DIAGNOSES: - Allergy status to other drugs, medicaments and biological substances - Migraine, unspecified, not intractable, without status migrainosus - Allergy status to penicillin - Allergy status to analgesic agent - Bee allergy status - Left lower quadrant pain - Headache, unspecified - 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 05/11/2020 15:48 [facility] HBreanna [place] TYPE: Emergency COMPLAINT: - SEIZURE DIAGNOSES: - Bee allergy status - Allergy status to other drugs, medicaments and biological substances - Allergy status to penicillin - Migraine, unspecified, not intractable, without status migrainosus - 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 - Hypothyroidism, unspecified - Personal history of nicotine dependence - Post-traumatic stress disorder, unspecified - Allergy status to analgesic agent - Unspecified convulsions 05/05/2020 11:31 [facility] HBreanna [place] TYPE: Emergency COMPLAINT: - CHEST PAIN [...] - POST OP PROBLEM DIAGNOSES: - Other longterm (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 - Latex allergy status - Allergy status to other drugs, medicaments and biological substances - Other acute postprocedural pain - Personal history of nicotine dependence - Hypothyroidism, unspecified - Allergy status to penicillin - Migraine, unspecified, not intractable, without status migrainosus - Left lower quadrant pain - Allergy status to analgesic agent 01/29/2020 13:40 [facility]DR[facility] [place] TYPE: Emergency COMPLAINT: - BUG BITE 01/24/2020 16:54 [facility] [place] TYPE: Emergency COMPLAINT: - URINE PROBLEM, PAIN DIAGNOSES: - Bee allergy status - Dorsalgia, unspecified - Allergy status to penicillin - Urinary tract infection, site not specified - Allergy status to other drugs, medicaments and biological substances - 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 - Hypothyroidism, unspecified 12/31/2019 17:45 SANDRA Beebemadison EscobarBreanna Gil [place] TYPE: Emergency COMPLAINT: - SOB DIAGNOSES: - Shortness of breath - Migraine, unspecified, not intractable, without status migrainosus - Allergy status to other drugs, medicaments and biological substances - Allergy status to penicillin - Other longterm (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 - Unspecified foreign body in other parts of respiratory tract causing asphyxiation, initial encounter - Hypothyroidism, unspecified - Exposure to other specified factors, initial encounter 12/15/2019 18:59 SANDRA Beebeony Michi [place] TYPE: Emergency COMPLAINT: - VOMITING DIAGNOSES: - Other longterm (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 - Chest pain, unspecified - Allergy status to other drugs, medicaments and biological substances - Migraine, unspecified, not intractable, without status migrainosus - Allergy status to penicillin - Chondrocostal junction syndrome [Tietze] - Bee allergy status 10/24/2019 17:17 SANDRA Beebeony Michi [place] TYPE: Emergency COMPLAINT: - SOB/COUGH DIAGNOSES: - Acute bronchitis due to other specified organisms - Personal history of nicotine dependence - Allergy status to penicillin - Bee allergy status - Cough - 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
[2020-08-17] MEDS ORDERED: BACTRIM DS TAB1 EACH PO (00:45)
[2020-08-17] MEDS ORDERED: KEFLEX500 MG PO (19:04)
== END 2020-08-17 01:00 | disposition home or self-care (01) ==
LOC: ED 00:26
DX: S00.86XA Insect bite (nonvenomous) of other part of head, initial encounter (principal); L08.9 Local infection of the skin and subcutaneous tissue, unspecified; W57.XXXA Bitten or stung by nonvenomous insect and other nonvenomous arthropods, initial encounter; G43.909 Migraine, unspecified, not intractable, without status migrainosus; Z87.891 Personal history of nicotine dependence; Z88.0 Allergy status to penicillin; Z88.8 Allergy status to other drugs, medicaments and biological substances; Z79.899 Other long term (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
CPT/HCPCS: 99281

== ENCOUNTER 2020-08-17 17:23 | Emergency (ER) | payer OTHER ==
[~2020-08-17] VITALS: Ht 172.7 cm; Wt 117.6 kg
--- OUTSIDE RECORDS SUMMARY | 2020-08-17 17:26 | XMS ---
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 Her patient case manager is Kami Santamaria Hop Trainer 1 (RN). For assistance with care coordination please contact Kami at [phone] or email [email or web address]. She is available Monday Thru Monday from 8am to 5pm. If Kami is not available please contact [facility] at [phone] and ask for the Case Management Department. Additional care guidelines exist for the following facilities: [facility] ( 11/04/2019 ) [facility] ( 09/02/2019 ) Care History Medical/Surgical 07/13/2020 [facility] Care Recommendation: - PLEASE REVIEW PDMP ON THE TONY - USE EXTREME CAUTION IN GIVING NARCOTICS. - Avoid Discharge Narcotic prescriptions if at all possible. Physician discretion. 02/11/2020 [facility] - PATIENT HAS BEEN REFERRED TO DR PRESCOTT, DR RAMIREZ FOR PAIN MGMT WHEN PATIENT WAS LAST HOSPITALIZED ALL APTS WERE SCHEDULED. PATIENT NO SHOWED TO FOLLOW UP APTS. - PATIENT WAS SET UP WITH [employer] FOR FOLLOW UP APT AND NO SHOWED TO THE APT. - PATIENT HAS BEEN PROVIDED TRANSPORTATION NUMBER FOR TO AND FROM APTS. - CHW IS UNABLE TO CONTACT PATIENT AT CURRENT HOT RESIDENCE- DOES NOT RETURN CALLS. 10/29/2019 [facility] WRONG PHONE NUMBER Please update patient phone number when seen. CHW needs to contact patient Substance Use/Overdose 02/06/2020 [facility] PATIENT WAS SCHEDULED FOR FOLLOWUP WITH [facility] [facility] [facility] FOR METHADONE TREATMENT 02/06/[address] RAMIREZ.\T\nbsp; WAS DISCHARGED WITH ENOUGH METHADONE TO LAST UNTIL THIS APPOINTMENT.\T\nbsp; PATIENT DID NOT SHOW UP FOR APPOINTMENT. \T\nbsp;\T\nbsp; IF PATIENT COMES TO ED FOR METHADONE TELL HER TO CALL THE [facility] TO RESCHEDULE APPOINTMENT . E.D. VISIT COUNT (12 MO.) [address] [place] [address] Minong H. TOTAL 14 NOTE: Visits indicate total known visits. ED/UCC VISIT TRACKING (12 MO.) 08/17/2020 17:23 [facility] [place] TYPE: Emergency COMPLAINT: - SPIDER BITE 08/17/2020 00:27 [facility] [place] TYPE: Emergency COMPLAINT: - POSSIBLE BUG BITE [facility]2020 [facility] COMPLAINT: - CHOKING DIAGNOSES: - Other intermediate (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 - Hypothyroidism, unspecified - Other chest pain - Allergy status to other antibiotic agents - Bee allergy status - Allergy status to penicillin - Allergy status to analgesic agent - Allergy status to other drugs, medicaments and biological substances - Post-traumatic stress disorder, unspecified 06/25/2020 07:50 [facility] [place] TYPE: Emergency COMPLAINT: - ABD PAIN, HEADACHE DIAGNOSES: - Allergy status to other drugs, medicaments and biological substances - Migraine, unspecified, not intractable, without status migrainosus - Allergy status to penicillin - Allergy status to analgesic agent - Bee allergy status - Left lower quadrant pain - Headache, unspecified - Other long term care administrator (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 05/11/2020 15:48 [facility] [place] TYPE: Emergency COMPLAINT: - SEIZURE DIAGNOSES: - Bee allergy status - Allergy status to other drugs, medicaments and biological substances - Allergy status to penicillin - Migraine, unspecified, not intractable, without status migrainosus - Other long term care administrator (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 - Hypothyroidism, unspecified - [...] - POST OP PROBLEM DIAGNOSES: - Other long term care administrator (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 - Latex allergy status [...] drugs, medicaments and biological substances - Other long term care administrator (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 - Hypothyroidism, unspecified 12/31/2019 17:45 [facility] [place] TYPE: Emergency COMPLAINT: - SOB DIAGNOSES: - Shortness of breath - Migraine, unspecified, not intractable, without status migrainosus - Allergy status to other drugs, medicaments and biological substances - Allergy status to penicillin - Other long term care administrator (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 - Unspecified foreign body in other parts of respiratory tract causing asphyxiation, initial encounter - Hypothyroidism, unspecified - Exposure to other specified factors, initial encounter 12/15/2019 18:59 [facility] [place] TYPE: Emergency COMPLAINT: - VOMITING DIAGNOSES: - Other intermediate (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 - Chest pain, unspecified [...] Bee allergy status - Cough - Other intermediate (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 10/09/2019 13:12 SANDRA Stuart TYPE: Emergency COMPLAINT: - ABD PAIN, URINE PROBLEM DIAGNOSES: - Allergy status to analgesic agent - Allergy status to penicillin - Bee allergy status - Urinary tract infection, site not specified - Other intermediate (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 - Personal history of [...] obesity due to excess calories - Other intermediate (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 - Acute cystitis without [...] self-harm by other specified means, initial encounter [email or web address]
[2020-08-17] MEDS ORDERED: KEFLEX500 MG PO (19:04)
== END 2020-08-17 19:22 | disposition home or self-care (01) ==
LOC: ED 17:23
DX: S00.86XA Insect bite (nonvenomous) of other part of head, initial encounter (principal); L08.9 Local infection of the skin and subcutaneous tissue, unspecified; W57.XXXA Bitten or stung by nonvenomous insect and other nonvenomous arthropods, initial encounter; G43.909 Migraine, unspecified, not intractable, without status migrainosus; Z87.891 Personal history of nicotine dependence; Z88.8 Allergy status to other drugs, medicaments and biological substances; Z88.6 Allergy status to analgesic agent; Z88.0 Allergy status to penicillin; Z91.030 Bee allergy status; Z79.899 Other long term (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
CPT/HCPCS: 99283

== ENCOUNTER 2020-08-18 18:48 | Inpatient (IN) | payer OTHER ==
[~2020-08-18] VITALS: Ht 172.7 cm; Wt 116.2 kg
[~2020-08-18 18:48] MED LIST changes: +KEFLEX500 MG PO
--- OUTSIDE RECORDS SUMMARY | 2020-08-18 18:50 | XMS ---
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 Her community case manager is Kami aSntamaria Railroad Car Repairman 1 (RN). For assistance with care coordination please contact Kami at [phone] or email [email or web address]. She is available Monday Thru Monday from 8am to 5pm. If Kami is not available please contact [facility] at [phone] and ask for the Case Management Department. Additional care guidelines exist for the following facilities: [facility] ( 11/04/2019 ) [facility] ( 09/02/2019 ) Care History Medical/Surgical 08/18/2020 [facility] - PATIENT WAS LAST SEEN BY PCP -CHARISSA SIMEON ON 07/08/2020. - PCP LISTED IN [facility] WAS NOT ACCURATE- CHW UPDATED INFO AND SENT RECENT ED RECORDS TO PROVIDER OFFICE -PROVIDER REQUESTED. 07/13/2020 [facility] Care Recommendation: - PLEASE REVIEW PDMP ON THE TONY - USE EXTREME CAUTION IN GIVING NARCOTICS. - Avoid Discharge Narcotic prescriptions if at all possible. Physician discretion. 02/11/2020 [facility] - PATIENT HAS BEEN REFERRED TO DR PRESCOTT, DR RAMIREZ FOR PAIN MGMT WHEN PATIENT WAS LAST HOSPITALIZED ALL APTS WERE SCHEDULED. PATIENT NO SHOWED TO FOLLOW UP APTS. - PATIENT WAS SET UP WITH [employer] FOR FOLLOW UP APT AND NO SHOWED TO THE APT. - PATIENT HAS BEEN PROVIDED TRANSPORTATION NUMBER FOR TO AND FROM APTS. - CHW IS UNABLE TO CONTACT PATIENT AT CURRENT HOTEL RESIDENCE- DOES NOT RETURN CALLS. Substance Use/Overdose 02/06/2020 [facility] PATIENT WAS SCHEDULED FOR FOLLOWUP WITH [facility] FOR METHADONE TREATMENT 02/06/[address] RAMIREZ.\T\nbsp; WAS DISCHARGED WITH ENOUGH METHADONE TO LAST UNTIL THIS APPOINTMENT.\T\nbsp; PATIENT DID NOT SHOW UP FOR APPOINTMENT. \T\nbsp;\T\nbsp; IF PATIENT COMES TO ED FOR METHADONE TELL HER TO CALL THE [facility] TO RESCHEDULE APPOINTMENT . E.D. VISIT COUNT (12 MO.) [address] [place], [place] [address]Breanna 14 SANDRA Nathan TOTAL 15 NOTE: Visits indicate total known visits. ED/UCC VISIT TRACKING (12 MO.) 08/18/2020 18:48 [facility]DR[facility] [place] TYPE: Emergency COMPLAINT: - SPIDER BITE 08/17/2020 17:23 [facility] [place] TYPE: Emergency COMPLAINT: - SPIDER BITE 08/17/2020 00:27 [facility]DR[facility] Nathan [place] TYPE: Emergency COMPLAINT: - POSSIBLE BUG BITE 07/03/2020 14:24 [facility]DR[facility] Nathan [place] TYPE: Emergency COMPLAINT: - CHOKING DIAGNOSES: - Other usp (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 - Hypothyroidism, unspecified - Other chest pain - Allergy status to other antibiotic agents - Bee allergy status - Allergy status to penicillin - Allergy status to analgesic agent - Allergy status to other drugs, medicaments and biological substances - Post-traumatic stress disorder, unspecified 06/25/2020 07:[address] [facility] [place] TYPE: Emergency COMPLAINT: - ABD PAIN, HEADACHE DIAGNOSES: - Allergy status to other drugs, medicaments and biological substances - Migraine, unspecified, not intractable, without status migrainosus - Allergy status to penicillin - Allergy status to analgesic agent - Bee allergy status - Left lower quadrant pain - Headache, unspecified - Other usp (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 05/11/2020 15:[address] [facility] [address] [facility] [place] TYPE: Emergency COMPLAINT: - SEIZURE DIAGNOSES: - Bee allergy status - Allergy status to other drugs, medicaments and biological substances - Allergy status to penicillin - Migraine, unspecified, not intractable, without status migrainosus - Other usp (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 - Hypothyroidism, unspecified - Personal history of nicotine dependence - Post-traumatic stress disorder, unspecified - Allergy status to analgesic agent - Unspecified convulsions 05/05/2020 11:[address] [facility] [address] [facility] [place] TYPE: Emergency COMPLAINT: - CHEST PAIN DIAGNOSES: - Allergy status to analgesic agent - Bee allergy status - Chest pain, unspecified - Personal history of nicotine dependence - Migraine, unspecified, not intractable, without status migrainosus - Allergy status to penicillin - Allergy status to other drugs, medicaments and biological substances - Post-traumatic stress disorder, unspecified 02/10/2020 12:[address] [facility] [address] [facility] [place] TYPE: Emergency COMPLAINT: - POST OP PROBLEM DIAGNOSES: - Other bed bug exterminator (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 - Latex allergy status - Allergy status to other drugs, medicaments and biological substances - Other acute postprocedural pain - Personal history of nicotine dependence - Hypothyroidism, unspecified - Allergy status to penicillin - Migraine, unspecified, not intractable, without status migrainosus - Left lower quadrant pain - Allergy status to analgesic agent 01/29/2020 13:40 [facility]DRA Kevin HBreanna Gil [place] TYPE: Emergency COMPLAINT: - BUG BITE 01/24/2020 16:54 [facility]DR[facility] Beeb[facility]adison EscobarBreanna Gil [place] TYPE: Emergency COMPLAINT: - URINE PROBLEM, PAIN DIAGNOSES: - Bee allergy status - Dorsalgia, unspecified - Allergy status to penicillin - Urinary tract infection, site not specified - Allergy status to other drugs, medicaments and biological substances - Other bed bug exterminator (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 - Hypothyroidism, unspecified 12/31/2019 17:45 [facility]DRA Beebemadison EscobarBreanna Gil [place] TYPE: Emergency COMPLAINT: - SOB DIAGNOSES: - Shortness of breath - Migraine, unspecified, not intractable, without status migrainosus - Allergy status to other drugs, medicaments and biological substances - Allergy status to penicillin - Other usp (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 - Unspecified foreign body in other parts of respiratory tract causing asphyxiation, initial encounter - Hypothyroidism, unspecified - Exposure to other specified factors, initial encounter 12/15/2019 18:59 [facility]DRA Beebemadison EscobarBreanna [place] TYPE: Emergency COMPLAINT: - VOMITING DIAGNOSES: - Other bed bug exterminator (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 - Chest pain, unspecified - Allergy status to other drugs, medicaments and biological substances - Migraine, unspecified, not intractable, without status migrainosus - Allergy status to penicillin - Chondrocostal junction syndrome [Tietze] - Bee allergy status 10/24/2019 17:17 SANDRA Beebemadison EscobarBreanna Gil [place] TYPE: Emergency COMPLAINT: - SOB/COUGH DIAGNOSES: - Acute bronchitis due to other specified organisms - Personal history of nicotine dependence - Allergy status to penicillin - Bee allergy status - Cough - Other usp (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 10/09/2019 13:12 [facility]DR[facility] [place] TYPE: Emergency COMPLAINT: - ABD PAIN, URINE PROBLEM DIAGNOSES: - Allergy status to analgesic agent - Allergy status to penicillin - Bee allergy status - Urinary tract infection, site not specified - Other usp (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 - Personal history of [...] obesity due to excess calories - Other bed bug exterminator (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 - Acute cystitis without [...] self-harm by other specified means, initial encounter [email or web address]
[2020-08-19] MEDS ORDERED: METHADONE HCL10 MG PO (02:00)
[2020-08-19] MEDS ORDERED: OMEPRAZOLE40 MG PO (11:57)
--- NOTE | 2020-08-19 14:12 | OR ---
[facility] [address], [place] [address] Signed DATE OF OPERATION: 08/19/2020 SURGEON: Abdifatah Turk MD PREOPERATIVE DIAGNOSIS: Progressive buccal abscess and facial cellulitis with necessitation to the chin. POSTOPERATIVE DIAGNOSES: 1. Progressive buccal abscess and facial cellulitis with necessitation to the chin. 2. Poor peripheral access. 3. Chronic pain syndrome. PROCEDURES: 1. Drainage of buccal abscess with debridement of soft tissue of chin. 2. Placement of yellow vessel loop drains and buccal/alveolar margin (loop type drain). 3. Debridement and drainage of tract from chin to buccal mucosa with placement of a knotted yellow vessel loop drain. 4. Placement of left subclavian triple lumen catheter ANESTHESIA: General endotracheal; Dylan Campuzano CRNA and local 10 mL of 0.25% Marcaine with epinephrine. INDICATION: This 40-year-old morbidly obese white woman has Luogjtu-Bgcap-Cemmc disease as well as underlying chronic pain problems requiring methadone for management. She is known to me from the past having had debridement of an abscess of her left abdominal wall. In the past three days, she has presented to the emergency room with pain and swelling in the gingival margin that was treated initially with antibiotic Bactrim subsequently with Keflex and admitted last night after evaluation by Dr. Mobley and to the service of Dr. Ornelas with facial cellulitis and a CT scan showing to my examination, probable fluid collection in the gingival margin and buccal mucosa of the lower mandible with necessitation at the chin. She has extreme pain and progressive swelling. She does not currently have airway obstructive problems. I have recommended incision and drainage of the problem upon consultation from Dr. Ornelas and that it be performed without delay, so as to avoid progression to trismus and so on. The risks of bleeding, infection, cosmetic deformity, and so forth have been reviewed with her in detail. She understands and wished to proceed. Additionally, she did consent any additional procedures that may be necessary for her care. Electronically Signed By: ABDIFATAH TURK MD 08/19/20 1412 PATIENT NAME: FLORENCE NERI OPERATIVE REPORT DATE OF : 84 REPORT #: [id number] PHYSICIAN: ABDIFATAH TURK MD PCP: CHARISSA SIMEON REPORT IS CONFIDENTIAL AND NOT TO BE RELEASED WITHOUT AUTHORIZATION [facility] [address], [place] [address] Signed FINDINGS: Extreme difficulty with her peripheral IV was noted. Subsequently, a left subclavian central line was placed anticipating further antibiotic management and so on. This was placed at conclusion of the procedure. As regard to that process, there was some spontaneous necessitation in the region of the buccal mucosa and the central aspect extended along the length of the alveolar margin and tracked to the chin allowing for necessitation at the skin. Drainage and irrigation and culture were obtained. A yellow vessel loop was placed in the mucosal space with care to avoid redundant drain to impair occlusion of the lower teeth. Additionally, a knotted yellow vessel loop was extended from the left side of the alveolar margin exiting the chin to provide additional drainage. DESCRIPTION OF PROCEDURE: The patient was brought to the operating room and attempts made for administration of medication through a peripheral IV, which was rather tenuous. Notably, the dining room host was required to place her IV last night due to poor peripheral access. Attempts at peripheral access were additionally undertaken in the left hand and right ankle, but were unsuccessful. The IV in her right arm did allow for some infusion, but rather unreliable overall. It was adequate enough to allow for intubation, which was undertaken without hazard. Photographs were taken. The gingival margin and face were prepared with a chlorhexidine-based solution and draped sterilely. The lower lip was extended inferiorly identifying well the abscess space between the mucosal aspect of the labium and the alveolar margin of the gumline. There were two areas of spontaneous necessitation, but poorly draining. Hemostat was used to insinuated into the area, spontaneous drainage allowing for egress of purulent material, cultures were obtained. The space was broken down of its loculations and a yellow vessel loop placed elevating the mucosal margin and allowing for irrigation with saline. Once complete, the vessel loop was tied in a loop and knotted securely with care taken to fashion the loop so it would not affect her lower tooth occlusion. Small amount of electrocautery was used for hemostasis at the open wound sites on the buccal surface. The tract on the left side went directly to the area of necessitation in the central portion of her chin. This tract was easily identified with a hemostat. This tract was debrided externally a bit and a yellow vessel loop passed through it as well. This allowed for additional irrigation with saline. Rather than remain with a knot and yellow vessel loop that would cross her lip, the end of the drain was tied with multiple Electronically Signed By: ABDIFATAH TURK MD 08/19/20 1412 PATIENT NAME: FLORENCE NERI OPERATIVE REPORT DATE OF : 84 REPORT #: [id number] PHYSICIAN: ABDIFATAH TURK MD PCP: CHARISSA SIMEON REPORT IS CONFIDENTIAL AND NOT TO BE RELEASED WITHOUT AUTHORIZATION [address], [place] [address] Signed knots for a melecot - like effect and insinuated into the buccal space and allowed to exit from the chin in the central aspect. 10 mL of 0.25% Marcaine with epinephrine was injected locally. Hemostasis was assured. A gauze dressing was applied over the chin. Considering her need for additional hospitalization, blood draws and so forth and given the poor peripheral access she has and mindful of her extreme intolerance of essentially any discomfort, a central line was deemed appropriate. The left infraclavicular space was prepared with a chlorhexidine solution and using the Arrow triple-lumen blue tip catheter kit, a central venous line was placed. Separate gloves, gowns, and so forth were used of course. Access to the left subclavian vein was ultimately obtained showing dark nonpulsatile blood. A flexible J-wire was passed down the needle without impediment. The needle was removed. The site was incised with an #11 blade and dilated with a blue dilator and previously inspected and irrigated Arrow Blue Tip triple-lumen catheter passed over the wire without problem. The wire was removed. Aspiration on the distal port showed dark nonpulsatile blood. The catheter secured the skin with the enclosed Dereje needle and nylon suture and an anti-infective disk and ultimately, an OpSite type dressing applied. The patient was ultimately extubated without problem, taken to the recovery room in good condition having suffered no complications. Sponge, needle, and instrument counts were reported as correct x3. MD CHELY Mi/DIDI /[id number] cc: TEETEE Alexis MD Brian Piteo, MD Copies: CARLOS ENRIQUE GUTIERREZ DMD Electronically Signed By: ABDIFATAH TURK MD 08/19/20 1412 PATIENT NAME: FLORENCE NERI OPERATIVE REPORT DATE OF : 84 REPORT #: [id number] PHYSICIAN: ABDIFATAH TURK MD PCP: CHARISSA SIMEON REPORT IS CONFIDENTIAL AND NOT TO BE RELEASED WITHOUT AUTHORIZATION [address] [address] Signed JUNE MOBLEY MD, BRIAN DO ~ Electronically Signed By: ABDIFATAH TURK MD 08/19/20 1412 PATIENT NAME: FLORENCE NERINE OPERATIVE REPORT DATE OF : 84 REPORT #: [id number] PHYSICIAN: ABDIFATAH TURK MD PCP: CHARISSA SIMEON REPORT IS CONFIDENTIAL AND NOT TO BE RELEASED WITHOUT AUTHORIZATION
--- NOTE | 2020-08-19 14:12 | CONS ---
[facility] [address], [place] [address] Signed DATE OF CONSULTATION: 08/19/2020 CONSULTING PHYSICIAN: Abdifatah Turk M.D. REQUESTING PHYSICIAN: Jarrett Ornelas M.D. PROBLEM: Anterior inferior central buccal abscess and mental necessitation. HISTORY OF PRESENT ILLNESS: This 40-year-old white woman presented to the emergency room approximately three nights ago for a "bug bite" on her chin. She was begun on Bactrim antibiotic. She returned the following day with worsening pain and swelling and Keflex was prescribed. She returned last night, seen approximately at [address] Mobley for worsening pain and swelling as well as nausea and vomiting several episodes and unable to hold down her antibiotics. She was admitted under the service of Dr. Ornelas, hospitalist for further evaluation and care. A CT scan was performed, which described as moderate amount of skin induration, small superficial skin lesion in the anterior chin at the midline with some brief findings of a phlegmon. There is no foci of gas identified. There is reactive submandibular lymphadenopathy and internal jugular lymphadenopathy also. The patient was begun on vancomycin under the direction of Dr. Ornelas. This morning, she was found to have increased swelling and tense glossy lower lip and significant pain. She is not having trouble with swallowing, does not have stridor or airway compromise at this point. Of note, the patient in January of 2020 underwent left lower abdominal wall cellulitis excision and debridement of an abscess, which she related to a "spider bite again." The patient has comorbidities of obesity, methadone dependency previously, and other psychiatric disturbances. REVIEW OF SYSTEMS: She denies any trouble swallowing and/or having trouble breathing. Her pain is rather extreme. PHYSICAL EXAMINATION: GENERAL: Morbidly obese white woman, who looks to be in [id number] discomfort at this time. VITAL SIGNS: Temperature is 99.8, pulse 103, respirations 20, blood pressure 151/107, Electronically Signed By: ABDIFATAH TURK MD 08/19/20 1412 PATIENT NAME: FLORENCE NERI CONSULTATION DATE OF : 84 REPORT #: [id number] PHYSICIAN: ABDIFATAH TURK MD PCP: CHARISSA SIMEON REPORT IS CONFIDENTIAL AND NOT TO BE RELEASED WITHOUT AUTHORIZATION [facility] [address], [place] [address] Signed and O2 saturation on room air is 99%. HEENT: Examination of her face shows a swollen lower lip. There is extrusion of purulent material at the apex of her chin. There is no submental collection that I can identify per se. The inside of her mouth and the buccal mucosa shows a tense, distended and probably abscess related pathologic process. Her dentition is marginal in this area, but I see no obvious extrusion of tooth root or anything of that sort. NECK: Her trachea is midline. The trachea itself is soft. She is able to open her mouth. I do not detect trismus at this time. CHEST: Shows normal respiratory excursion without tachypnea. ABDOMEN: Markedly obese. There is a scar in the left lower abdomen of prior an incision and drainage. LABORATORY DATA: At admission last night showed white count of 17.6, hematocrit 38, and platelets of 341,000. Chem profile is normal. Her rapid COVID test is negative. test was canceled. ASSESSMENT: The patient has a suppurative process of the area of the buccal mucosa and the lip with extrusion of purulent material through the apex of the chin. Whether this is related to a dental problem or not, drainage is certainly well indicated. I have reviewed the CT scan in detail and in particular the lateral view shows what may well be a fluid collection in the region of the gingival margin. The chin itself has edema and swelling, but no fluid collection there. PLAN: I have recommended urgent incision and drainage of the abscess area on the mucosal side of the gingival margin (behind the lip), and she may have continuity of this process extruding from the lip, this might involve an indwelling drain (yellow vessel loop or something of that sort). Discussed with her the risks of bleeding, infection, airway problems (unlikely) and cosmetic deformity. She understands all this and wished to proceed. We will plan for this to be done at the next level OR this morning. MD CHELY Mi/DIDI /[id number] Electronically Signed By: ABDIFATAH TURK MD 08/19/20 1412 PATIENT NAME: FLORENCE NERI CONSULTATION DATE OF : 84 REPORT #: [id number] PHYSICIAN: ABDIFATAH TURK MD PCP: CHARISSA SIMEON REPORT IS CONFIDENTIAL AND NOT TO BE RELEASED WITHOUT AUTHORIZATION [address] [address] Signed cc: MD Jarrett Silva MD Copies: JUNE MOBLEY MD, BRIAN DO ~ Electronically Signed By: ABDIFATAH TURK MD 08/19/20 1412 PATIENT NAME: FLORENCE NERI CONSULTATION DATE OF : 84 REPORT #: [id number] PHYSICIAN: ABDIFATAH TURK MD PCP: CHARISSA SIMEON REPORT IS CONFIDENTIAL AND NOT TO BE RELEASED WITHOUT AUTHORIZATION
[2020-08-20] MEDS ORDERED: UNISOM25 MG PO (09:19)
[2020-08-20] MEDS ORDERED: EPIPEN 2-P0.3 MG/0.3 IM (09:19)
[2020-08-20] MEDS ORDERED: KRATOM PO (10:42)
[2020-08-21] MEDS ORDERED: DOXYCYCLINE HY100 MG PO (11:20)
== END 2020-08-21 13:45 | disposition home or self-care (01) | DRG 137 ==
LOC: ED 18:48 → MS 18:49
PROVIDERS: Surgery; ADMIT Student in an Organized Health Care Education/Training Program; ATTEND Student in an Organized Health Care Education/Training Program
PROC: 0C940ZZ Drainage of Buccal Mucosa, Open Approach (ICD-10-PCS; principal; 2020-08-19 09:15)
PROC: 02HV33Z Insertion of Infusion Device into Superior Vena Cava, Percutaneous Approach (ICD-10-PCS; 2020-08-19 09:15)
PROC: 3E02340 Introduction of Influenza Vaccine into Muscle, Percutaneous Approach (ICD-10-PCS; 2020-08-21)
DX: K12.2 Cellulitis and abscess of mouth (principal); L03.211 Cellulitis of face; G61.81 Chronic inflammatory demyelinating polyneuritis; Z20.828 Contact with and (suspected) exposure to other viral communicable diseases; E66.01 Morbid (severe) obesity due to excess calories; G60.0 Hereditary motor and sensory neuropathy; G40.909 Epilepsy, unspecified, not intractable, without status epilepticus; G89.4 Chronic pain syndrome; Z23 Encounter for immunization; Z68.38 Body mass index [BMI] 38.0-38.9, adult; Z79.899 Other long term (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; Z79.891 Long term (current) use of opiate analgesic; Z88.0 Allergy status to penicillin; Z88.8 Allergy status to other drugs, medicaments and biological substances; Z88.1 Allergy status to other antibiotic agents; Z88.4 Allergy status to anesthetic agent
CPT/HCPCS: 00170; 70487; 70491; 71045; 80048; 80053; 83605; 83735; 84703; 85025; 90686; 94762; 96375; 96376; 99285-25; C9803; G0378; J0690; J1100; J1170; J1200; J1953; J2060; J2405; J2550; J2704; J3010; J3370; J7030; J7060; J7121; Q9967; U0003

== ENCOUNTER 2020-11-06 06:35 | Day surgery (SDC) | payer OTHER ==
[~2020-11-06 06:35] MED LIST changes: +EPIPEN 2-P0.3 MG/0.3 IM; +KRATOM PO; +OMEPRAZOLE40 MG PO; +UNISOM25 MG PO
--- NOTE | 2020-11-06 13:23 | NUR ---
11/06/20 1323 Story,Teetee Faulkner2 PT. RESTING CALM WITH EYES CLOSED, O2 MASK AND OPA IN PLACE. BREATHS ARE EVEN AND UNLABORED.
[2020-11-06] MEDS ORDERED: HYDROCODON-ACE1 EA10 PO (14:32)
--- NOTE | 2020-11-06 17:00 | NUR ---
PROVIDED PATIENT WITH DISCHARGE INSTRUCTION. PATIENT AND SPOUSE VERBALIZED UNDERSTANDING. CALLED PATIENT CAB. VSS STABLE AND BACK TO BASELINE. PROVIDED GAUZE FOR HOME CARE SUPPLY. PATIENT TO FRONT IN WHEELCHAIR.
== END 2020-11-06 15:00 | disposition home or self-care (01) ==
LOC: OPS 06:35 → DS 06:35 → OPS 08:30
PROVIDERS: ATTEND Dentist General Practice
PROC: 0CRWXJ1 Replacement of Upper Tooth, Multiple, with Synthetic Substitute, External Approach (ICD-10-PCS; 2020-11-06)
PROC: 0CDXXZ1 Extraction of Lower Tooth, Multiple, External Approach (ICD-10-PCS; 2020-11-06)
PROC: 0CDWXZ1 Extraction of Upper Tooth, Multiple, External Approach (ICD-10-PCS; 2020-11-06)
PROC: 0CRXXJ1 Replacement of Lower Tooth, Multiple, with Synthetic Substitute, External Approach (ICD-10-PCS; principal; 2020-11-06 08:30)
DX: K04.7 Periapical abscess without sinus (principal); K02.9 Dental caries, unspecified; G47.33 Obstructive sleep apnea (adult) (pediatric); J45.909 Unspecified asthma, uncomplicated; E66.01 Morbid (severe) obesity due to excess calories; F40.240 Claustrophobia; F32.9 Major depressive disorder, single episode, unspecified; E89.0 Postprocedural hypothyroidism; G89.29 Other chronic pain; K21.9 Gastro-esophageal reflux disease without esophagitis; G40.909 Epilepsy, unspecified, not intractable, without status epilepticus; G61.81 Chronic inflammatory demyelinating polyneuritis; G60.0 Hereditary motor and sensory neuropathy; Z68.39 Body mass index [BMI] 39.0-39.9, adult; Z79.891 Long term (current) use of opiate analgesic; Z87.891 Personal history of nicotine dependence; Z88.4 Allergy status to anesthetic agent; Z88.6 Allergy status to analgesic agent; Z88.0 Allergy status to penicillin; Z88.8 Allergy status to other drugs, medicaments and biological substances; Z88.1 Allergy status to other antibiotic agents; Z88.5 Allergy status to narcotic agent
CPT/HCPCS: J0131; J0330; J1100; J1885; J2250; J2405; J2704; J2765; J3010; J7121

== ENCOUNTER 2020-11-09 18:05 | Emergency (ER) | payer OTHER ==
[~2020-11-09] VITALS: Ht 172.7 cm; Wt 116.2 kg
--- OUTSIDE RECORDS SUMMARY | 2020-11-09 18:08 | XMS ---
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 Security Events currently on file CRITERIA MET - Group Notification - 6 ED Visits in 6 Months - [facility] - Has Care Guidelines - PDMP CARE PROVIDERS DALLAS BARNETT \T\ Family Therapist Current PHONE: [phone] [facility] 02/11/2020-Current PHONE: [phone] Care Guidelines exist for the following facilities: [facility] ( 10/05/2020 ) [facility] ( 11/04/2019 ) [facility] ( 09/02/2019 ) Care History Substance Use/Overdose 02/06/2020 [facility] PATIENT WAS SCHEDULED FOR FOLLOWUP WITH [facility] FOR METHADONE TREATMENT 02/06/[address] RAMIREZ.\T\nbsp; WAS DISCHARGED WITH ENOUGH METHADONE TO LAST UNTIL THIS APPOINTMENT.\T\nbsp; PATIENT DID NOT SHOW UP FOR APPOINTMENT. \T\nbsp;\T\nbsp; IF PATIENT COMES TO ED FOR METHADONE TELL HER TO CALL THE [facility] TO RESCHEDULE APPOINTMENT . Medical/Surgical 08/18/2020 [facility] - PATIENT WAS LAST SEEN BY PCP -CHARISSA SIMEON ON 07/08/2020. - PCP LISTED IN [facility] WAS NOT ACCURATE- [facility] UPDATED INFO AND SENT RECENT ED RECORDS TO PROVIDER OFFICE -PROVIDER REQUESTED. 07/13/2020 [facility] Care Recommendation: - PLEASE REVIEW PDMP ON THE TONY - USE EXTREME CAUTION IN GIVING NARCOTICS. - Avoid Discharge Narcotic prescriptions if at all possible. Physician discretion. 02/11/2020 [facility] - PATIENT HAS BEEN REFERRED TO DR PRESCOTT, DR RAMIREZ FOR PAIN MGMT WHEN PATIENT WAS LAST HOSPITALIZED ALL APTS WERE SCHEDULED. PATIENT NO SHOWED TO FOLLOW UP APTS. - PATIENT WAS SET UP WITH [employer] FOR FOLLOW UP APT AND NO SHOWED TO THE APT. - PATIENT HAS BEEN PROVIDED TRANSPORTATION NUMBER FOR TO AND FROM APTS. - CHW IS UNABLE TO CONTACT PATIENT AT CURRENT HOTEL RESIDENCE- DOES NOT RETURN CALLS. E.D. VISIT COUNT ([address] 13 [facility] TOTAL 13 NOTE: Visits indicate total known visits. ED/UCC VISIT TRACKING (12 MO.) 11/09/2020 18:06 [facility] [place] TYPE: Emergency COMPLAINT: - DENTAL PAIN 08/18/2020 18:48 [facility] [place] TYPE: Emergency COMPLAINT: - SPIDER BITE 08/17/2020 17:23 [facility] [place] TYPE: Emergency COMPLAINT: - SPIDER BITE DIAGNOSES: - Local infection of the skin and subcutaneous tissue, unspecified - Allergy status to penicillin - Migraine, unspecified, not intractable, without status migrainosus - Insect bite (nonvenomous) of other part of head, initial encounter - Bee allergy status - Other chcf (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 - Personal history of nicotine dependence - Allergy status to other drugs, medicaments and biological substances - Bitten or stung by nonvenomous insect and other nonvenomous arthropods, initial encounter - Allergy status to other drugs, medicaments and biological substances - Insect bite (nonvenomous) of other part of head, initial encounter - Allergy status to analgesic agent - Allergy status to analgesic agent 08/17/2020 00:27 [facility] [place] TYPE: Emergency COMPLAINT: - POSSIBLE BUG BITE DIAGNOSES: - Insect bite (nonvenomous) of other part of head, initial encounter - Insect bite (nonvenomous) of other part of head, initial encounter - Allergy status to penicillin - Migraine, unspecified, not intractable, without status migrainosus - Bitten or stung by nonvenomous insect and other nonvenomous arthropods, initial encounter - Personal history of nicotine dependence - Other termite technician (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 - Local infection of the skin and subcutaneous tissue, unspecified - Allergy status to other drugs, medicaments and biological substances - Allergy status to other drugs, medicaments and biological substances 07/03/2020 14:24 [facility] [place] TYPE: Emergency COMPLAINT: - CHOKING DIAGNOSES: - Other chcf (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 - Hypothyroidism, unspecified - Allergy status to analgesic agent - Other chest pain - Allergy status to other drugs, medicaments and biological substances - Allergy status to other antibiotic agents - Allergy status to other antibiotic agents - Bee allergy status - Allergy status to penicillin - Allergy status to analgesic agent - Allergy status to other drugs, medicaments and biological substances - Post-traumatic stress disorder, unspecified 06/25/2020 07:50 [facility] [place] [facility] [place] TYPE: Emergency COMPLAINT: - ABD PAIN, HEADACHE DIAGNOSES: - Allergy status to other drugs, medicaments and biological substances - Allergy status to other drugs, medicaments and biological substances - Migraine, unspecified, not intractable, without status migrainosus - Allergy status to penicillin - Allergy status to analgesic agent - Allergy status to analgesic agent - Bee allergy status - Headache, unspecified - Left lower quadrant pain - Headache, unspecified - Other chcf (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 05/11/2020 15:48 [facility] [place] [employer] [place] TYPE: Emergency COMPLAINT: - SEIZURE DIAGNOSES: - Bee allergy status - Allergy status to other drugs, medicaments and biological substances - Allergy status to penicillin - Migraine, unspecified, not intractable, without status migrainosus - Other chcf (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 - Hypothyroidism, unspecified - Personal history of nicotine dependence - Post-traumatic stress disorder, unspecified - Allergy status to analgesic agent - Unspecified convulsions 05/05/2020 11:[address] [facility] [facility] [place] TYPE: Emergency COMPLAINT: [...] - POST OP PROBLEM DIAGNOSES: - Other termite technician (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 - Latex allergy status [...] drugs, medicaments and biological substances - Other termite technician (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 - Hypothyroidism, unspecified 12/31/2019 17:45 [facility] [place] TYPE: Emergency COMPLAINT: - SOB DIAGNOSES: - Shortness of breath - Migraine, unspecified, not intractable, without status migrainosus - Allergy status to other drugs, medicaments and biological substances - Allergy status to penicillin - Other chcf (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 - Unspecified foreign body in other parts of respiratory tract causing asphyxiation, initial encounter - Hypothyroidism, unspecified - Exposure to other specified factors, initial encounter 12/15/2019 18:59 [facility] [place] TYPE: Emergency COMPLAINT: - VOMITING DIAGNOSES: - Other chcf (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 - Chest pain, unspecified - Allergy status to other drugs, medicaments and biological substances - Migraine, unspecified, not intractable, without status migrainosus - Allergy status to penicillin - 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] - Bee allergy status INPATIENT VISIT TRACKING (12 MO.) 08/19/2020 09:15 [facility] [place] TYPE: Medical Surgical COMPLAINT: - CELLULITIS, SP DRAINAGE OF BUCCAL ABSCESS WITH DIAGNOSES: - Encounter for immunization - Cellulitis of face - Contact with and (suspected) exposure to other viral communicable diseases - Contact with and (suspected) exposure to other viral communicable diseases - Allergy status to other drugs, medicaments and biological substances - 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 - Hereditary motor and sensory neuropathy - Cellulitis and abscess of mouth - Morbid (severe) obesity due to excess calories - Morbid (severe) obesity due to excess calories - Allergy status to other antibiotic agents - Chronic pain syndrome - Cellulitis and abscess of mouth - Chronic pain syndrome - Other termite technician (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 - Allergy status to other antibiotic agents - Epilepsy, unspecified, not intractable, without status epilepticus - Body mass index [BMI] 38.0-38.9, adult - Allergy status to anesthetic agent - Allergy status to anesthetic agent - Cellulitis of face - Allergy status to other antibiotic agents - Hereditary motor and sensory neuropathy - Chronic inflammatory demyelinating polyneuritis - Allergy status to other drugs, medicaments and biological substances - Allergy status to other drugs, medicaments and biological substances - Body mass index [BMI] 38.0-38.9, adult - Cutaneous abscess of face - Chronic inflammatory demyelinating polyneuritis - Allergy status to anesthetic agent - Allergy status to penicillin - Body mass index [BMI] 38.0-38.9, adult - Other chcf (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 - Encounter for immunization - 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 - Allergy status to penicillin - Epilepsy, unspecified, not intractable, without status epilepticus 01/29/2020 17:18 [facility] TYPE: Medical Surgical COMPLAINT: - ABD WALL CELLULITIS DIAGNOSES: - Radiographic dye allergy status - Other specified polyneuropathies - Cutaneous abscess of abdominal wall - Opioid dependence, uncomplicated - Morbid (severe) obesity due to excess calories - Other chcf (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 - Acute cystitis without [...] mass index [BMI] 38.0-38.9, adult 12/31/2019 23:07 [facility] COMPLAINT: - INHALED [...] self-harm by other specified means, initial encounter [email or web address]
[2020-11-09] MEDS ORDERED: HYDROCODON-ACE1 EA10 PO (20:26)
== END 2020-11-09 21:23 | disposition home or self-care (01) ==
LOC: ED 18:05
DX: K08.89 Other specified disorders of teeth and supporting structures (principal); E03.9 Hypothyroidism, unspecified; G43.909 Migraine, unspecified, not intractable, without status migrainosus; Z87.891 Personal history of nicotine dependence; Z88.6 Allergy status to analgesic agent; Z88.0 Allergy status to penicillin; Z91.030 Bee allergy status; Z88.8 Allergy status to other drugs, medicaments and biological substances; Z88.1 Allergy status to other antibiotic agents; Z91.041 Radiographic dye allergy status; Z79.899 Other long term (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
CPT/HCPCS: 99282

== ENCOUNTER 2021-05-24 20:39 | Emergency (ER) | payer OTHER ==
[~2021-05-24] VITALS: Ht 172.7 cm; Wt 116.2 kg
--- OUTSIDE RECORDS SUMMARY | 2021-05-24 20:42 | XMS ---
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 02/11/2020-Current PHONE: [phone] Care Guidelines exist for the following facilities: [facility] ( 10/05/2020 ) [facility] ( 11/04/2019 ) [facility] ( 09/02/2019 ) Care History Medical/Surgical 08/18/2020 [facility] - PATIENT WAS LAST SEEN BY PCP -CHARISSA SIMEON ON 07/08/2020. - PCP LISTED IN [facility] WAS NOT ACCURATE- CHW UPDATED INFO AND SENT RECENT ED RECORDS TO PROVIDER OFFICE -PROVIDER REQUESTED. 07/13/2020 [facility] Care Recommendation: - PLEASE REVIEW PDMP ON THE TONY - USE EXTREME CAUTION IN GIVING NARCOTICS. - Avoid Discharge Narcotic prescriptions if at all possible. Physician discretion. 02/11/2020 [facility] - PATIENT HAS BEEN REFERRED TO DR PRESCOTT, DR RAMIREZ FOR PAIN MGMT WHEN PATIENT WAS LAST HOSPITALIZED ALL APTS WERE SCHEDULED. PATIENT NO SHOWED TO FOLLOW UP APTS. - PATIENT WAS SET UP WITH [employer] FOR FOLLOW UP APT AND NO SHOWED TO THE APT. - PATIENT HAS BEEN PROVIDED TRANSPORTATION NUMBER FOR TO AND FROM APTS. - CHW IS UNABLE TO CONTACT PATIENT AT CURRENT HOTEL RESIDENCE- DOES NOT RETURN CALLS. Substance Use/Overdose 02/06/2020 [facility] PATIENT WAS SCHEDULED FOR FOLLOWUP WITH [facility] FOR METHADONE TREATMENT 02/06/[address] RAMIREZ.\T\nbsp; WAS DISCHARGED WITH ENOUGH METHADONE TO LAST UNTIL THIS APPOINTMENT.\T\nbsp; PATIENT DID NOT SHOW UP FOR APPOINTMENT. \T\nbsp;\T\nbsp; IF PATIENT COMES TO ED FOR METHADONE TELL HER TO CALL THE [facility] MATOS TO RESCHEDULE APPOINTMENT . E.D. VISIT COUNT (12 MO.) 8 [facility] 7 [facility] TOTAL 15 NOTE: Visits indicate total known visits. ED/UCC VISIT TRACKING (12 MO.) 05/24/2021 20:39 [facility] [place] TYPE: Emergency COMPLAINT: - ABDOMINAL PAIN 05/20/2021 19:39 [facility] [place] TYPE: Emergency DIAGNOSES: - Delayed or excessive hemorrhage following incomplete spontaneous - VAGINAL BLEEDING 05/05/2021 02:15 [facility] [place] TYPE: Emergency DIAGNOSES: - Threatened - vaginal bleeding 04/27/2021 14:52 [facility] [place] TYPE: Emergency DIAGNOSES: - Acute cystitis without hematuria - Hyperkalemia - ABDOMINAL PAIN - Encounter for supervision of normal , unspecified, unspecified trimester 03/10/2021 18:04 [facility] [place] TYPE: Emergency DIAGNOSES: - L SIDE ABD PAIN - Residual foreign body in soft tissue 02/27/2021 15:26 [facility] [place] TYPE: Emergency DIAGNOSES: - Epilepsy, unspecified, not intractable, without status epilepticus - VOMITING, SEIZURES - Nausea with vomiting, unspecified 02/24/2021 17:26 [facility] [place] TYPE: Emergency DIAGNOSES: - ABD PAIN VOMITING - Unspecified convulsions - Opioid dependence, uncomplicated - Nausea with vomiting, unspecified - Generalized abdominal pain 02/22/2021 14:45 [facility] [place] TYPE: Emergency DIAGNOSES: - Acute cystitis without hematuria - ABD PAIN 12/29/2020 20:40 [facility] [place] TYPE: Emergency DIAGNOSES: - Acute cystitis with hematuria - Left lower quadrant pain - abd pain 11/09/2020 18:06 [facility] [place] TYPE: Emergency COMPLAINT: - DENTAL PAIN DIAGNOSES: - Allergy status to other drugs, medicaments and biological substances - Hypothyroidism, unspecified - Allergy status to analgesic agent - Personal history of nicotine dependence - Migraine, unspecified, not intractable, without status migrainosus - Allergy status to other antibiotic agents - Other specified disorders of teeth and supporting structures - Other buttermaker (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 - Bee allergy status - Allergy status to penicillin - Radiographic dye allergy status 08/18/2020 18:48 [facility] [place] TYPE: Emergency COMPLAINT: - SPIDER BITE 08/17/2020 17:23 [facility] [place] TYPE: Emergency COMPLAINT: - SPIDER BITE DIAGNOSES: - Local infection of the skin and subcutaneous tissue, unspecified - Allergy status to penicillin - Migraine, unspecified, not intractable, without status migrainosus - Insect bite (nonvenomous) of other part of head, initial encounter - Bee allergy status - Other buttermaker (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 - Personal history of [...] Personal history of nicotine dependence - Other buttermaker (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 - Local infection of the skin and subcutaneous tissue, unspecified - Allergy status to other drugs, medicaments and biological substances - Allergy status to other drugs, medicaments and biological substances 07/03/2020 14:24 [facility] [place] TYPE: Emergency COMPLAINT: - CHOKING DIAGNOSES: - Other buttermaker (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 - Hypothyroidism, unspecified - [...] Post-traumatic stress disorder, unspecified 06/25/2020 07:50 [facility] [place] TYPE: Emergency [...] unspecified - Other usp (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 INPATIENT VISIT TRACKING (12 MO.) 02/27/2021 15:26 [facility] [place] TYPE: Medical Surgical DIAGNOSES: - Epilepsy, unspecified, not intractable, without status epilepticus - Nausea with vomiting, unspecified 08/19/2020 09:15 [facility] [place] TYPE: Medical Surgical COMPLAINT: - CELLULITIS, SP DRAINAGE OF BUCCAL ABSCESS WITH DIAGNOSES: - Encounter for immunization - Cellulitis of face - Contact with and (suspected) exposure to other viral communicable diseases - Contact with and (suspected) exposure to other viral communicable diseases - Allergy status to other drugs, medicaments and biological substances - 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 - Hereditary motor and sensory neuropathy - Cellulitis and abscess of mouth - Morbid (severe) obesity due to excess calories - Morbid (severe) obesity due to excess calories - Allergy status to other antibiotic agents - Chronic pain syndrome - Cellulitis and abscess of mouth - Chronic pain syndrome - Other usp (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 - Allergy status to [...] mass index [BMI] 38.0-38.9, adult - Other usp (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 - Encounter for immunization - 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
[2021-05-25] MEDS ORDERED: HYDROCODON-ACE1 EA10 PO (00:54)
== END 2021-05-25 01:10 | disposition home or self-care (01) ==
LOC: ED 20:39
DX: G89.18 Other acute postprocedural pain (principal); R10.30 Lower abdominal pain, unspecified; G43.909 Migraine, unspecified, not intractable, without status migrainosus; E03.9 Hypothyroidism, unspecified; Z87.891 Personal history of nicotine dependence; Z88.0 Allergy status to penicillin; Z91.041 Radiographic dye allergy status; Z88.6 Allergy status to analgesic agent; Z91.030 Bee allergy status; Z88.1 Allergy status to other antibiotic agents; Z88.8 Allergy status to other drugs, medicaments and biological substances; Z79.899 Other long term (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
CPT/HCPCS: 76830; 76856; 80053; 81001; 83690; 84703; 85025; 96374; 96375; 99284-25; J1170; J2405; J7030

== ENCOUNTER 2021-07-19 18:06 | Emergency (ER) | payer OTHER ==
[~2021-07-19] VITALS: Ht 172.7 cm; Wt 118.0 kg
--- OUTSIDE RECORDS SUMMARY | 2021-07-19 18:12 | XMS ---
PreManage Notification: FLORENCE NERI Security Medical Front Desk Specialist Events No recent Security Events currently on file CRITERIA MET - Group Notification - [facility] - 2 Visits in 30 Days - 6 ED Visits in 6 Months - [facility] - Has Care Guidelines CARE PROVIDERS Sydni Office Rn 04/30/2021-Current PHONE: [phone] DALLAS BARNETT Turbinated Bone Grinder/Rig Hand Current PHONE: [phone] KO SIMEON Physician Banquet Server 05/25/2021-Current PHONE: [phone] CINDA BARFIELD [facility] 02/11/2020-Current PHONE: [phone] Care Guidelines exist for the following facilities: [facility] ( 10/05/2020 ) [facility] ( 11/04/2019 ) [facility] ( 09/02/2019 ) Care History Substance Use/Overdose 02/06/2020 [facility] PATIENT WAS SCHEDULED FOR FOLLOWUP WITH [facility] FOR METHADONE TREATMENT 02/06/[address] RAMIREZ.\T\nbsp; WAS DISCHARGED WITH ENOUGH METHADONE TO LAST UNTIL THIS APPOINTMENT.\T\nbsp; PATIENT DID NOT SHOW UP FOR APPOINTMENT. \T\nbsp;\T\nbsp; IF PATIENT COMES TO ED FOR METHADONE TELL HER TO CALL THE [facility] TO RESCHEDULE APPOINTMENT . Medical/Surgical 08/18/2020 [facility] - PATIENT WAS LAST SEEN BY PCP -CHARISSA SIMEON ON 07/08/2020. - PCP LISTED IN [facility] WAS NOT ACCURATE- W UPDATED INFO AND SENT RECENT ED RECORDS TO PROVIDER OFFICE -PROVIDER REQUESTED. 07/13/2020 [facility] Care Recommendation: - PLEASE REVIEW PDMP ON THE TONY - USE EXTREME CAUTION IN GIVING NARCOTICS. - Avoid Discharge Narcotic prescriptions if at all possible. Physician discretion. 02/11/2020 [facility] - PATIENT HAS BEEN REFERRED TO DR PRESCOTT, DR RAMIREZ FOR PAIN MGMT WHEN PATIENT WAS LAST HOSPITALIZED ALL APTS WERE SCHEDULED. PATIENT NO SHOWED TO FOLLOW UP APTS. - PATIENT WAS SET UP WITH [employer] FOR FOLLOW UP APT AND NO SHOWED TO THE APT. - PATIENT HAS BEEN PROVIDED TRANSPORTATION NUMBER FOR TO AND FROM APTS. - CHW IS UNABLE TO CONTACT PATIENT AT CURRENT HOTEL RESIDENCE- DOES NOT RETURN CALLS. Sincere VISIT COUNT (12 MO.) [address] [place] [address] 7 SANDRA Nathan TOTAL 15 NOTE: Visits indicate total known visits. 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 - Bee allergy status - Migraine, unspecified, not intractable, without status migrainosus 05/24/2021 20:39 [facility]DR[facility] [place] TYPE: Emergency COMPLAINT: - ABDOMINAL PAIN DIAGNOSES: - Allergy status to penicillin - Allergy status to other antibiotic agents - Allergy status to other drugs, medicaments and biological substances - Lower abdominal pain, unspecified - Allergy status to analgesic agent - Migraine, unspecified, not intractable, without status migrainosus - Hypothyroidism, unspecified - Other penitentiary (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 - Other acute postprocedural pain - Radiographic dye allergy status - Personal history of nicotine dependence - Bee allergy status 05/20/2021 19:39 [facility] [place] TYPE: Emergency DIAGNOSES: - Delayed or excessive hemorrhage following incomplete spontaneous - VAGINAL BLEEDING 05/05/2021 02:15 [facility] [place] TYPE: Emergency DIAGNOSES: - Threatened - vaginal bleeding 04/27/2021 14:52 [facility] [place] TYPE: Emergency DIAGNOSES: - Acute cystitis without hematuria - Hyperkalemia - ABDOMINAL PAIN - Encounter for supervision of normal , unspecified, unspecified trimester 03/10/2021 18:04 [facility] [place] TYPE: Emergency DIAGNOSES: - L SIDE ABD PAIN - Residual foreign body in soft tissue 02/27/2021 15:26 [facility] [place] TYPE: Emergency DIAGNOSES: - Epilepsy, unspecified, not intractable, without status epilepticus - VOMITING, SEIZURES - Nausea with vomiting, unspecified 02/24/2021 17:26 [facility] [place] TYPE: Emergency DIAGNOSES: - ABD PAIN VOMITING - Unspecified convulsions - Opioid dependence, uncomplicated - Nausea with vomiting, unspecified - Generalized abdominal pain 02/22/2021 14:45 [facility] [place] TYPE: Emergency DIAGNOSES: - Acute cystitis without hematuria - ABD PAIN 12/29/2020 20:40 [facility] [place] TYPE: Emergency DIAGNOSES: - Acute cystitis [...] of teeth and supporting structures - 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 marine 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 (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 - Bee allergy status [...] encounter - Bee allergy status - 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 marine 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 (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 - Personal history of [...] Personal history of nicotine dependence - Other penitentiary (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 - Local infection of the skin and subcutaneous tissue, unspecified - Allergy status to other drugs, medicaments and biological substances - Allergy status to other drugs, medicaments and biological substances INPATIENT VISIT TRACKING (12 MO.) 02/27/2021 15:26 [facility] [place] TYPE: Medical Surgical DIAGNOSES: - Epilepsy, [...] other drugs, medicaments and biological substances - moth exterminator (current) use of opiate analgesic - Hereditary motor and sensory neuropathy - Cellulitis and abscess of mouth - Morbid (severe) obesity due to excess calories - Morbid (severe) obesity due to excess calories - Allergy status to other antibiotic agents - Chronic pain syndrome - Cellulitis and abscess of mouth - Chronic pain syndrome - Other penitentiary (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 - Allergy status to [...] mass index [BMI] 38.0-38.9, adult - 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 marine 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 (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
[2021-07-19] MEDS ORDERED: CEPHALEXIN500 MG PO (19:43)
[2021-07-19] MEDS ORDERED: ULTRAM50 MG PO (19:43)
[2021-07-19] MEDS ORDERED: BACTRIM DS TAB1 EACH PO (19:43)
== END 2021-07-19 19:55 | disposition home or self-care (01) ==
LOC: ED 18:06
DX: L03.311 Cellulitis of abdominal wall (principal); E03.9 Hypothyroidism, unspecified; F43.10 Post-traumatic stress disorder, unspecified; Z87.891 Personal history of nicotine dependence; Z88.6 Allergy status to analgesic agent; Z88.0 Allergy status to penicillin; Z91.041 Radiographic dye allergy status; Z88.8 Allergy status to other drugs, medicaments and biological substances; Z79.899 Other long term (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; Z91.030 Bee allergy status
CPT/HCPCS: 99283

== ENCOUNTER 2021-07-21 12:56 | Emergency (ER) | payer OTHER ==
[~2021-07-21] VITALS: Ht 172.7 cm; Wt 118.0 kg
[~2021-07-21 12:56] MED LIST changes: +CEPHALEXIN500 MG PO
--- OUTSIDE RECORDS SUMMARY | 2021-07-21 13:04 | XMS ---
PreManage Notification: FLORENCE NERI Security Injection Press Operator Events No recent Security Events currently on file CRITERIA MET - [facility] - 2 Visits in 30 Days - 6 ED Visits in 6 Months - [facility] - Has Care Guidelines - Group Notification CARE PROVIDERS Sydni Metal Fence Erector 04/30/2021-Current PHONE: [phone] DALLAS BARNETT Deli Worker/Inbound Ingredient Logistics Specialist Current PHONE: [phone] KO SIMEON Physician Web Marketing Specialist 05/25/2021-Current PHONE: [phone] CINDA BARFIELD [facility] 02/11/2020-Current PHONE: [phone] Care Guidelines exist for the following facilities: [facility] ( 10/05/2020 ) [facility] ( 11/04/2019 ) [facility] ( 09/02/2019 ) Care History Substance Use/Overdose 02/06/2020 [facility] PATIENT WAS SCHEDULED FOR FOLLOWUP WITH [facility] FOR METHADONE TREATMENT 02/06/[address] RAMIREZ.\T\nbsp; WAS DISCHARGED WITH ENOUGH METHADONE TO LAST UNTIL THIS APPOINTMENT.\T\nbsp; PATIENT DID NOT SHOW UP FOR APPOINTMENT. \T\nbsp;\T\nbsp; IF PATIENT COMES TO ED FOR METHADONE TELL HER TO CALL THE [facility] TO RESCHEDULE APPOINTMENT . Medical/Surgical 08/18/2020 [facility] - PATIENT WAS LAST SEEN BY PCP -CHARISSA SIMEON ON 07/08/2020. - PCP LISTED IN [facility] WAS NOT ACCURATE- W UPDATED INFO AND SENT RECENT ED RECORDS TO PROVIDER OFFICE -PROVIDER REQUESTED. 07/13/2020 [facility] Care Recommendation: - PLEASE REVIEW PDMP ON THE TONY - USE EXTREME CAUTION IN GIVING NARCOTICS. - Avoid Discharge Narcotic prescriptions if at all possible. Physician discretion. 02/11/2020 [facility] - PATIENT HAS BEEN REFERRED TO DR PRESCOTT, DR RAMIREZ FOR PAIN MGMT WHEN PATIENT WAS LAST HOSPITALIZED ALL APTS WERE SCHEDULED. PATIENT NO SHOWED TO FOLLOW UP APTS. - PATIENT WAS SET UP WITH [employer] FOR FOLLOW UP APT AND NO SHOWED TO THE APT. - PATIENT HAS BEEN PROVIDED TRANSPORTATION NUMBER FOR TO AND FROM APTS. - CHW IS UNABLE TO CONTACT PATIENT AT CURRENT HOTEL RESIDENCE- DOES NOT RETURN CALLS. Sincere VISIT COUNT (12 MO.) [address] [place] [address] 8 SANDRA Nathan TOTAL 16 NOTE: Visits indicate total known visits. ED/UCC VISIT TRACKING (12 MO.) 07/21/2021 12:56 [facility] [place] TYPE: Emergency COMPLAINT: - WOUND CHECK/VOMITING 07/19/2021 18:06 [facility] [place] TYPE: Emergency COMPLAINT: - WOUND CHECK 06/22/2021 17:41 [facility]DR[facility] [place] TYPE: Emergency COMPLAINT: - N/V, SEIZURES, ABD PAIN DIAGNOSES: - Allergy status to penicillin - Hypothyroidism, unspecified - Nausea with vomiting, unspecified - Personal history of nicotine dependence - Allergy status to analgesic agent - Radiographic dye allergy status - Urinary tract infection, site not specified - Allergy status to other drugs, medicaments and biological substances - Other oil heaterman (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 - Bee allergy status [...] status migrainosus - Hypothyroidism, unspecified - Other intermediate (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 - Other acute postprocedural pain - Radiographic dye allergy status - Personal history of nicotine dependence - Bee allergy status 05/20/2021 19:39 [facility] [place] TYPE: Emergency DIAGNOSES: - Delayed or excessive hemorrhage following incomplete spontaneous - VAGINAL BLEEDING 05/05/2021 02:15 [facility] [place] TYPE: Emergency DIAGNOSES: - Threatened - vaginal bleeding 04/27/2021 14:52 [facility] [place] TYPE: Emergency DIAGNOSES: - Acute cystitis without hematuria - Hyperkalemia - ABDOMINAL PAIN - Encounter for supervision of normal , unspecified, unspecified trimester 03/10/2021 18:04 [facility] [place] TYPE: Emergency DIAGNOSES: - L SIDE ABD PAIN - Residual foreign body in soft tissue 02/27/2021 15:26 [facility] [place] TYPE: Emergency DIAGNOSES: - Epilepsy, unspecified, not intractable, without status epilepticus - VOMITING, SEIZURES - Nausea with vomiting, unspecified 02/24/2021 17:26 [facility] [place] TYPE: Emergency DIAGNOSES: - ABD PAIN VOMITING - Unspecified convulsions - Opioid dependence, uncomplicated - Nausea with vomiting, unspecified - Generalized abdominal pain 02/22/2021 14:45 [facility] [place] TYPE: Emergency DIAGNOSES: - Acute cystitis without hematuria - ABD PAIN 12/29/2020 20:40 [facility] [place] TYPE: Emergency DIAGNOSES: - Acute [...] of teeth and supporting structures - Other intermediate (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 - Bee allergy status [...] encounter - Bee allergy status - Other oil heaterman (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 - Personal history of [...] Personal history of nicotine dependence - Other intermediate (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 - Local infection of the skin and subcutaneous tissue, unspecified - Allergy status to other drugs, medicaments and biological substances - Allergy status to other drugs, medicaments and biological substances INPATIENT VISIT TRACKING (12 MO.) 02/27/2021 15:26 [facility] [place] TYPE: Medical Surgical DIAGNOSES: - [...] drugs, medicaments and biological substances - intermediate project manager (current) use of opiate analgesic - Hereditary motor and sensory neuropathy - Cellulitis and abscess of mouth - Morbid (severe) obesity due to excess calories - Morbid (severe) obesity due to excess calories - Allergy status to other antibiotic agents - Chronic pain syndrome - Cellulitis and abscess of mouth - Chronic pain syndrome - Other intermediate (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 - Allergy status to [...] mass index [BMI] 38.0-38.9, adult - Other oil heaterman (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 - Encounter for immunization - retirement (current) use of opiate analgesic - Allergy status to penicillin - Epilepsy, unspecified, not intractable, without status epilepticus [email or web address]
[2021-07-21] MEDS ORDERED: ONDANSETRON ODT4 MG PO (17:59)
== END 2021-07-21 18:25 | disposition home or self-care (01) ==
LOC: ED 12:56
DX: S30.851A Superficial foreign body of abdominal wall, initial encounter (principal); L02.211 Cutaneous abscess of abdominal wall; W45.8XXA Other foreign body or object entering through skin, initial encounter; E03.9 Hypothyroidism, unspecified; G43.909 Migraine, unspecified, not intractable, without status migrainosus; Z87.891 Personal history of nicotine dependence; Z88.6 Allergy status to analgesic agent; Z88.0 Allergy status to penicillin; Z88.8 Allergy status to other drugs, medicaments and biological substances; Z91.041 Radiographic dye allergy status; Z79.899 Other long term (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
CPT/HCPCS: 74018; 74176; 80053; 83605; 84703; 85025; 99284-25; A9270

== ENCOUNTER 2021-08-30 02:08 | Emergency (ER) | payer OTHER ==
[~2021-08-30] VITALS: Ht 172.7 cm; Wt 114.3 kg
[~2021-08-30 02:08] MED LIST changes: +ONDANSETRON ODT4 MG PO
--- OUTSIDE RECORDS SUMMARY | 2021-08-30 02:10 | XMS ---
PreManage Notification: FLORENCE NERI Security Residential Supervisor Events No recent Security Events currently on file CRITERIA MET - PDMP - [facility] - Has Care Guidelines - Group Notification - 6 ED Visits in 6 Months CARE PROVIDERS Sydni Insecticide Supervisor 04/30/2021-Current PHONE: [phone] DALLAS BARNETT Putty And Patch Worker/Entry Level Software Engineer Current PHONE: [phone] KO SIMEON Physician Contractor General Engineering 05/25/2021-Current PHONE: [phone] CINDA BARFIELD [facility] 02/11/2020-Current PHONE: [phone] Care Guidelines exist for the following facilities: [facility] ( 10/05/2020 ) [facility] ( 11/04/2019 ) [facility] ( 09/02/2019 ) Care History Medical/Surgical 08/18/2020 [facility] - PATIENT WAS LAST SEEN BY PCP -CHARISSA SIMEON ON 07/08/2020. - PCP LISTED IN [facility] WAS NOT ACCURATE- CHW UPDATED INFO AND SENT RECENT ED RECORDS TO PROVIDER OFFICE -PROVIDER REQUESTED. 07/13/2020 [facility] Care Recommendation: - PLEASE REVIEW PDMP ON THE TONY - USE EXTREME CAUTION IN GIVING NARCOTICS. - Avoid Discharge Narcotic prescriptions if at all possible. Physician discretion. 02/11/2020 [facility] - PATIENT HAS BEEN REFERRED TO DR PRESCOTT, DR RAMIREZ FOR PAIN MGMT WHEN PATIENT WAS LAST HOSPITALIZED ALL APTS WERE SCHEDULED. PATIENT NO SHOWED TO FOLLOW UP APTS. - PATIENT WAS SET UP WITH [employer] FOR FOLLOW UP APT AND NO SHOWED TO THE APT. - PATIENT HAS BEEN PROVIDED TRANSPORTATION NUMBER FOR TO AND FROM APTS. - CHW IS UNABLE TO CONTACT PATIENT AT CURRENT HOT RESIDENCE- DOES NOT RETURN CALLS. Substance Use/Overdose 02/06/2020 [facility] PATIENT WAS SCHEDULED FOR FOLLOWUP WITH [facility] FOR METHADONE TREATMENT 02/06/[address] RAMIREZ.\T\nbsp; WAS DISCHARGED WITH ENOUGH METHADONE TO LAST UNTIL THIS APPOINTMENT.\T\nbsp; PATIENT DID NOT SHOW UP FOR APPOINTMENT. \T\nbsp;\T\nbsp; IF PATIENT COMES TO ED FOR METHADONE TELL HER TO CALL THE [facility] TO RESCHEDULE APPOINTMENT . E.D. VISIT COUNT (12 MO.) [address] [place] [address] 6 SANDRA Nathan TOTAL 14 NOTE: Visits indicate total known visits. ED/UCC VISIT TRACKING (12 MO.) 08/30/2021 02:08 [facility] [place] TYPE: Emergency COMPLAINT: - HEADACHE 07/21/2021 12:56 [facility] [place] TYPE: Emergency COMPLAINT: - WOUND CHECK/VOMITING DIAGNOSES: - Superficial foreign body of abdominal wall, initial encounter - Allergy status to analgesic agent - Allergy status to other drugs, medicaments and biological substances - Other foreign body or object entering through skin, initial encounter - Allergy status to penicillin - Other continuous churn buttermaker (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 - Cutaneous abscess of abdominal wall - Radiographic dye allergy status - Personal history of nicotine dependence - Migraine, unspecified, not intractable, without status migrainosus - Hypothyroidism, unspecified 07/19/2021 18:06 [facility]DR[facility] [place] TYPE: Emergency COMPLAINT: - WOUND CHECK DIAGNOSES: - Personal history of nicotine dependence - Allergy status to penicillin - Allergy status to analgesic agent - Bee allergy status - Hypothyroidism, unspecified - Other residential (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 - Lower abdominal pain, unspecified - Cellulitis of abdominal wall - Post-traumatic stress disorder, unspecified - Radiographic dye allergy status - Allergy status to other drugs, medicaments and biological substances 06/22/2021 17:41 [facility]DR[facility] [place] TYPE: Emergency COMPLAINT: - N/V, SEIZURES, ABD PAIN DIAGNOSES: - Allergy status to penicillin - Hypothyroidism, unspecified - Nausea with vomiting, unspecified - Personal history of nicotine dependence - Allergy status to analgesic agent - Radiographic dye allergy status - Urinary tract infection, site not specified - Allergy status to other drugs, medicaments and biological substances - Other continuous churn buttermaker (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 - Bee allergy [...] status migrainosus - Hypothyroidism, unspecified - Other residential (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 - Other acute postprocedural pain - Radiographic dye allergy status - Personal history of nicotine dependence - Bee allergy status 05/20/2021 19:39 [facility] [place] TYPE: Emergency DIAGNOSES: - Delayed or excessive hemorrhage following incomplete spontaneous - VAGINAL BLEEDING 05/05/2021 02:15 [facility] [place] TYPE: Emergency DIAGNOSES: - Threatened - [...] of teeth and supporting structures - Other residential (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 - Bee allergy status - Allergy status to penicillin - Radiographic dye allergy status INPATIENT VISIT TRACKING (12 MO.) 02/27/2021 15:26 [facility] [place] TYPE: Medical Surgical DIAGNOSES: - Epilepsy, unspecified, not intractable, without status epilepticus - Nausea with vomiting, unspecified [email or web address]
--- NOTE | 2021-08-30 20:44 | EKG ---
[facility] [address] [place], [place] [address] Signed Normal sinus rhythm Normal ECG When compared with ECG of 03-JUL-2020 15:09, No significant change was found Confirmed by MIGUEL SETH DO ([id number]) on 08/30/2021 8:44:07 PM Electronically Signed By: MIGUEL SETH DO 08/30/212043 PATIENT NAME: FLORENCE NERI Electrocardiogram DATE OF : 84 PHYSICIAN: MIGUEL SETH DO REPORT #: [id number] REPORT IS CONFIDENTIAL AND NOT TO BE RELEASED WITHOUT AUTHORIZATION
== END 2021-08-30 05:15 | disposition home or self-care (01) ==
LOC: ED 02:08
DX: U07.1 COVID-19 (principal); E03.9 Hypothyroidism, unspecified; G43.909 Migraine, unspecified, not intractable, without status migrainosus; G40.909 Epilepsy, unspecified, not intractable, without status epilepticus; Z87.891 Personal history of nicotine dependence; Z23 Encounter for immunization; Z88.0 Allergy status to penicillin; Z88.4 Allergy status to anesthetic agent; Z88.8 Allergy status to other drugs, medicaments and biological substances; Z91.030 Bee allergy status; Z79.899 Other long term (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; Z91.041 Radiographic dye allergy status
CPT/HCPCS: 70450; 71045; 80053; 81001; 83605; 85025; 87040; 93005; 93010; 96372; 99285-25; A9270; C9803; J2270; M0243; Q0244; U0003

== ENCOUNTER 2021-10-21 09:06 | Emergency (ER) | payer OTHER ==
[~2021-10-21] VITALS: Ht 172.7 cm; Wt 115.6 kg
--- OUTSIDE RECORDS SUMMARY | 2021-10-21 09:08 | XMS ---
PreManage Notification: FLORENCE NERI Security Inspector Assembly Events No recent Security Events currently on file CRITERIA MET - ED - Positive COVID-19 Lab Result - [facility] - Group Notification - 6 ED Visits in 6 Months - [facility] - Has Care Guidelines CARE PROVIDERS Sydni Excel Specialist 04/30/2021-Current PHONE: [phone] KO SIMEON Physician Administrative Manager 05/25/2021-Current PHONE: [phone] [facility] 02/11/2020-Current PHONE: [phone] Care Guidelines exist for the following facilities: [facility] ( 10/05/2020 ) [facility] ( 11/04/2019 ) [facility] ( 09/02/2019 ) Care History Substance Use/Overdose 02/06/2020 [facility] PATIENT WAS SCHEDULED FOR FOLLOWUP WITH [facility] FOR METHADONE TREATMENT 02/06/[address] RAMIREZ.\T\nbsp; WAS DISCHARGED WITH ENOUGH METHADONE TO LAST UNTIL THIS APPOINTMENT.\T\nbsp; PATIENT DID NOT SHOW UP FOR APPOINTMENT. \T\nbsp;\T\nbsp; IF PATIENT COMES TO ED FOR METHADONE TELL HER TO CALL THE [facility] TO RESCHEDULE APPOINTMENT . Medical/Surgical 08/18/2020 [facility] - PATIENT WAS LAST SEEN BY PCP -CHARISSA SIMEON ON 07/08/2020. - PCP LISTED IN [facility] WAS NOT ACCURATE- CHW UPDATED INFO AND SENT RECENT ED RECORDS TO PROVIDER OFFICE -PROVIDER REQUESTED. 07/13/2020 [facility] Care Recommendation: - PLEASE REVIEW PDMP ON THE TONY - USE EXTREME CAUTION IN GIVING NARCOTICS. - Avoid Discharge Narcotic prescriptions if at all possible. Physician discretion. 02/11/2020 [facility] - PATIENT HAS BEEN REFERRED TO DR PRESCOTT, DR RAMIREZ FOR PAIN MGMT WHEN PATIENT WAS LAST HOSPITALIZED ALL APTS WERE SCHEDULED. PATIENT NO SHOWED TO FOLLOW UP APTS. - PATIENT WAS SET UP WITH [employer] FOR FOLLOW UP APT AND NO SHOWED TO THE APT. - PATIENT HAS BEEN PROVIDED TRANSPORTATION NUMBER FOR TO AND FROM APTS. - CHW IS UNABLE TO CONTACT PATIENT AT CURRENT HOTEL RESIDENCE- DOES NOT RETURN CALLS. E.D. VISIT COUNT (12 MO.) 8 [facility] 7 SANDRA GeigerBreanna TOTAL 15 NOTE: Visits indicate total known visits. 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 - Personal history of nicotine dependence - Headache, unspecified - Bee allergy status - Migraine, unspecified, not intractable, without status migrainosus - Allergy status to other drugs, medicaments and biological substances - Encounter for immunization - Allergy status to penicillin - COVID-19 - Allergy status to anesthetic agent - Radiographic dye allergy status - Epilepsy, unspecified, not intractable, without status epilepticus - Hypothyroidism, unspecified 07/21/2021 12:56 [facility] [place] TYPE: Emergency COMPLAINT: - WOUND CHECK/VOMITING DIAGNOSES: - Superficial foreign body of abdominal wall, initial encounter - Allergy status to analgesic agent - Allergy status to other drugs, medicaments and biological substances - Other foreign body or object entering through skin, initial encounter - Allergy status to penicillin - Other jail (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 - Cutaneous abscess of [...] allergy status - Hypothyroidism, unspecified - Other ferry terminal supervisor (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 - Lower abdominal pain, [...] drugs, medicaments and biological substances - Other ferry terminal supervisor (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 - Bee allergy status [...] status migrainosus - Hypothyroidism, unspecified - Other ferry terminal supervisor (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 - Other acute postprocedural pain - Radiographic dye allergy status - Personal history of nicotine dependence - Bee allergy status 05/20/2021 19:39 [facility] [place] TYPE: Emergency DIAGNOSES: - Delayed or excessive hemorrhage following incomplete spontaneous - VAGINAL BLEEDING 05/05/2021 02:15 [facility] [place] TYPE: Emergency DIAGNOSES: - Threatened - vaginal bleeding 04/27/2021 14:52 [facility] [place] TYPE: Emergency DIAGNOSES: - Acute cystitis without hematuria - Hyperkalemia - ABDOMINAL PAIN - Encounter for supervision of normal , unspecified, unspecified trimester 03/10/2021 18:04 [facility] [place] TYPE: Emergency DIAGNOSES: - L SIDE ABD PAIN - Residual foreign body in soft tissue 02/27/2021 15:26 [facility] [place] TYPE: Emergency DIAGNOSES: - Epilepsy, unspecified, not intractable, without status epilepticus - VOMITING, SEIZURES - Nausea with vomiting, unspecified 02/24/2021 17:26 [facility] [place] TYPE: Emergency DIAGNOSES: - ABD PAIN VOMITING - Unspecified convulsions - Opioid dependence, uncomplicated - Nausea with vomiting, unspecified - Generalized abdominal pain 02/22/2021 14:45 [facility] [place] TYPE: Emergency DIAGNOSES: - Acute cystitis without hematuria - ABD PAIN 12/29/2020 20:40 [facility] [place] TYPE: Emergency DIAGNOSES: - Acute [...] of teeth and supporting structures - Other ferry terminal supervisor (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 - Bee allergy status - Allergy status to penicillin - Radiographic dye allergy status INPATIENT VISIT TRACKING (12 MO.) 02/27/2021 15:26 [facility] [place] TYPE: Medical Surgical DIAGNOSES: - Epilepsy, unspecified, not intractable, without status epilepticus - Nausea with vomiting, unspecified [email or web address]
[2021-10-21] MEDS ORDERED: CEPHALEXIN500 MG PO (14:25)
== END 2021-10-21 14:40 | disposition home or self-care (01) ==
LOC: ED 09:06
DX: N39.0 Urinary tract infection, site not specified (principal); K59.00 Constipation, unspecified; E03.9 Hypothyroidism, unspecified; G43.909 Migraine, unspecified, not intractable, without status migrainosus; Z87.891 Personal history of nicotine dependence; Z88.8 Allergy status to other drugs, medicaments and biological substances; Z88.0 Allergy status to penicillin; Z91.030 Bee allergy status; Z88.1 Allergy status to other antibiotic agents; Z79.899 Other long term (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
CPT/HCPCS: 36415; 74176; 80053; 81001; 83690; 84703; 85025; 87088; 96365; 96375; 99284-25; J0696; J2212; J2405

== ENCOUNTER 2021-12-01 17:43 | Emergency (ER) | payer OTHER ==
[~2021-12-01] VITALS: Ht 172.7 cm; Wt 113.8 kg
--- OUTSIDE RECORDS SUMMARY | 2021-12-01 17:46 | XMS ---
PreManage Notification: FLORENCE NERI Security Go Go Dancer Events No recent Security Events currently on file CRITERIA MET - [facility] [place] Group Notification - 6 ED Visits in 6 Months CARE PROVIDERS POPPY MC Physician Ui Engineer 10/22/2021-Current PHONE: [phone] Sydni Director Radio 04/30/2021-Current PHONE: [phone] KO SIMEON Physician Ui Engineer 05/25/2021-Current PHONE: [phone] CINDA BARFIELD [facility] 02/11/2020-Current PHONE: [phone] Care Guidelines exist for the following facilities: [facility] ( 10/05/2020 ) [facility] ( 11/04/2019 ) [facility] [place] ( 09/02/2019 ) Care History Medical/Surgical 08/18/2020 [facility] - PATIENT WAS LAST SEEN BY PCP -CHARISSA SIMEON ON 07/08/2020. - PCP LISTED IN [facility] WAS NOT ACCURATE- CHW UPDATED INFO AND SENT RECENT ED RECORDS TO PROVIDER OFFICE -PROVIDER REQUESTED. 07/13/2020 [facility] Care Recommendation: - PLEASE REVIEW PDMP ON THE TONY - USE EXTREME CAUTION IN GIVING NARCOTICS. - Avoid Discharge Narcotic prescriptions if at all possible. Physician discretion. 02/11/2020 [facility] - PATIENT HAS BEEN REFERRED TO DR PRESCOTT, DR RAMIREZ FOR PAIN MGMT WHEN PATIENT WAS LAST HOSPITALIZED ALL APTS WERE SCHEDULED. PATIENT NO SHOWED TO FOLLOW UP APTS. - PATIENT WAS SET UP WITH [employer] FOR FOLLOW UP APT AND NO SHOWED TO THE APT. - PATIENT HAS BEEN PROVIDED TRANSPORTATION NUMBER FOR TO AND FROM APTS. - CHW IS UNABLE TO CONTACT PATIENT AT CURRENT HOTEL RESIDENCE- DOES NOT RETURN CALLS. Substance Use/Overdose 02/06/2020 [facility] PATIENT WAS SCHEDULED FOR FOLLOWUP WITH [facility] FOR METHADONE TREATMENT 02/06/[address] RAMIREZ.\T\nbsp; WAS DISCHARGED WITH ENOUGH METHADONE TO LAST UNTIL THIS APPOINTMENT.\T\nbsp; PATIENT DID NOT SHOW UP FOR APPOINTMENT. \T\nbsp;\T\nbsp; IF PATIENT COMES TO ED FOR METHADONE TELL HER TO CALL THE JIMENA MATOS TO RESCHEDULE APPOINTMENT . Sincere VISIT COUNT (12 MO.) [address] [place] [address] SANDRA Nathan TOTAL 15 NOTE: Visits indicate total known visits. ED/UCC VISIT TRACKING (12 MO.) 12/01/2021 17:44 [facility]DR[facility] [place] TYPE: Emergency COMPLAINT: - VAGINAL BLEEDING 10/21/2021 09:07 [facility] [place] TYPE: Emergency COMPLAINT: - LOWER ABD PAIN, N/V DIAGNOSES: - Lower abdominal pain, unspecified - Allergy status to other drugs, medicaments and biological substances - Urinary tract infection, site not specified - Other group home (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 - Allergy status to other antibiotic agents - Bee allergy status - Migraine, unspecified, not intractable, without status migrainosus - Personal history of nicotine dependence - Allergy status to penicillin - Hypothyroidism, unspecified - Constipation, unspecified 08/30/2021 02:08 [facility] [place] TYPE: Emergency COMPLAINT: - HEADACHE DIAGNOSES: - Other intermediate frame tender (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 - Personal history of [...] - Allergy status to penicillin - Other intermediate frame tender (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 - Cutaneous abscess of [...] allergy status - Hypothyroidism, unspecified - Other intermediate frame tender (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 - Lower abdominal pain, [...] drugs, medicaments and biological substances - Other group home (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 - Bee allergy status [...] migrainosus - Hypothyroidism, unspecified - Other intermediate frame tender (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 - Other acute postprocedural pain - Radiographic dye allergy status - Personal history of nicotine dependence - Bee allergy status 05/20/2021 19:39 [facility] [place] TYPE: Emergency DIAGNOSES: - Delayed or excessive hemorrhage following incomplete spontaneous - VAGINAL BLEEDING 05/05/2021 02:15 [facility] [place] TYPE: Emergency DIAGNOSES: - Threatened - vaginal bleeding 04/27/2021 14:52 [facility] DIAGNOSES: - Acute cystitis without hematuria - Hyperkalemia - ABDOMINAL PAIN - Encounter for supervision of normal , unspecified, unspecified trimester 03/10/2021 18:04 [facility] [place] TYPE: Emergency DIAGNOSES: - L SIDE ABD PAIN - Residual foreign body in soft tissue 02/27/2021 15:26 [facility] [place] TYPE: Emergency DIAGNOSES: - Epilepsy, unspecified, not intractable, without status epilepticus - VOMITING, SEIZURES - Nausea with vomiting, unspecified 02/24/2021 17:26 [facility] [place] TYPE: Emergency DIAGNOSES: - ABD PAIN VOMITING - Unspecified convulsions - Opioid dependence, uncomplicated - Nausea with vomiting, unspecified - Generalized abdominal pain 02/22/2021 14:45 [facility] [place] TYPE: Emergency DIAGNOSES: - Acute cystitis without hematuria - ABD PAIN 12/29/2020 20:40 [facility] [place] TYPE: Emergency DIAGNOSES: - Acute cystitis with hematuria - Left lower quadrant pain - abd pain INPATIENT VISIT TRACKING (12 MO.) 02/27/2021 15:26 [facility] [place] TYPE: Medical Surgical DIAGNOSES: - Epilepsy, unspecified, not intractable, without status epilepticus - Nausea with vomiting, unspecified [email or web address]
[2021-12-01] MEDS ORDERED: ARIPIPRAZOLE5 MG PO (17:58)
[2021-12-01] MEDS ORDERED: CEPHALEXIN500 MG PO (22:35)
[2021-12-01] MEDS ORDERED: ONDANSETRON ODT8 MG PO (22:35)
== END 2021-12-01 22:53 | disposition home or self-care (01) ==
LOC: ED 17:43
DX: N39.0 Urinary tract infection, site not specified (principal); F43.10 Post-traumatic stress disorder, unspecified; G43.909 Migraine, unspecified, not intractable, without status migrainosus; Z87.891 Personal history of nicotine dependence; Z91.041 Radiographic dye allergy status; Z88.8 Allergy status to other drugs, medicaments and biological substances; Z88.6 Allergy status to analgesic agent; Z88.0 Allergy status to penicillin; Z91.030 Bee allergy status; Z88.1 Allergy status to other antibiotic agents; Z79.899 Other long term (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
CPT/HCPCS: 36415; 51701; 80053; 81001; 83690; 84703; 85025; 99284-25; A9270; J2405; J7030

== ENCOUNTER 2022-07-30 03:46 | Emergency (ER) | payer OTHER ==
[~2022-07-30] VITALS: Ht 172.7 cm; Wt 131.9 kg
[~2022-07-30 03:46] MED LIST changes: +ARIPIPRAZOLE5 MG PO
--- OUTSIDE RECORDS SUMMARY | 2022-07-30 03:48 | XMS ---
PreManage Notification: FLORENCE NERI Security Vending Machine Servicer Events No recent Security Events currently on file CRITERIA MET - Group Notification - PDMP CARE PROVIDERS POPPY [facility] Physician Photolith Operator 10/22/2021-Current PHONE: [phone] Sydni Agriculture Extension Specialist 04/30/2021-Current PHONE: [phone] KO SIMEON Physician Photolith Operator 05/25/2021-Current PHONE: [phone] CINDA BARFIELD [facility] 02/11/2020-Current PHONE: [phone] Care Guidelines exist for the following facilities: [facility] ( 10/05/2020 ) [facility] ( 11/04/2019 ) [facility] ( 09/02/2019 ) Care History Substance Use/Overdose 02/06/2020 [facility] PATIENT WAS SCHEDULED FOR FOLLOWUP WITH [facility] FOR METHADONE TREATMENT 02/06/[address] RAMIREZ.\T\nbsp; WAS DISCHARGED WITH ENOUGH METHADONE TO LAST UNTIL THIS APPOINTMENT.\T\nbsp; PATIENT DID NOT SHOW UP FOR APPOINTMENT. \T\nbsp;\T\nbsp; IF PATIENT COMES TO ED FOR METHADONE TELL HER TO CALL THE [facility] TO RESCHEDULE APPOINTMENT . Medical/Surgical 08/18/2020 [facility] - PATIENT WAS LAST SEEN BY PCP -CHARISSA SIMEON ON 07/08/2020. - PCP LISTED IN [facility] WAS NOT ACCURATE- CHW UPDATED INFO [...] APTS. - PATIENT WAS SET UP WITH [employer] FOR FOLLOW UP APT AND NO SHOWED TO THE APT. - PATIENT HAS BEEN PROVIDED TRANSPORTATION NUMBER FOR TO AND FROM APTS. - CHW IS UNABLE TO CONTACT PATIENT AT CURRENT HOTEL RESIDENCE- DOES NOT RETURN CALLS. E.D. VISIT COUNT (12 MO.) [address] [facility] TOTAL 4 NOTE: Visits indicate total known visits. ED/UCC VISIT TRACKING (12 MO.) 2022 03:47 [facility]DR[facility] [place] TYPE: Emergency COMPLAINT: - BLOOD IN STOOL 12/01/2021 17:44 [facility]DR[facility] [place] TYPE: Emergency COMPLAINT: - VAGINAL BLEEDING DIAGNOSES: - Urinary tract infection, site not specified - Post-traumatic stress disorder, unspecified - Other correction (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 - Radiographic dye allergy status - Allergy status to analgesic agent - Migraine, unspecified, not intractable, without status migrainosus - Personal history of nicotine dependence - Dizziness and giddiness - Allergy status to other antibiotic agents - Allergy status to other drugs, medicaments and biological substances - Allergy status to penicillin - Bee allergy status 10/21/2021 09:[address] [facility] [place] TYPE: Emergency COMPLAINT: - LOWER ABD PAIN, N/V DIAGNOSES: - Allergy status to other antibiotic agents - Urinary tract infection, site not specified - Hypothyroidism, unspecified - Lower abdominal pain, unspecified - Personal history of nicotine dependence - Bee allergy status - Other correction (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 - Constipation, unspecified - Allergy status to other drugs, medicaments and biological substances - Allergy status to penicillin - Migraine, unspecified, not intractable, without status migrainosus 08/30/2021 02:[address] [facility] [place] TYPE: Emergency COMPLAINT: - HEADACHE DIAGNOSES: - Migraine, unspecified, not intractable, without status migrainosus - Epilepsy, unspecified, not intractable, without status epilepticus - Headache, unspecified - Allergy status to anesthetic agent - Other termination clerk (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 - Allergy status to penicillin - Allergy status to other drugs, medicaments and biological substances - Hypothyroidism, unspecified - Bee allergy status - Radiographic dye allergy status - Personal history of nicotine dependence - COVID-19 - Encounter for immunization INPATIENT VISIT TRACKING (12 MO.) No inpatient visits to display in this time frame [email or web address]
[2022-07-30] MEDS ORDERED: PROMETHAZINE12.5 M1 PO (04:11)
[2022-07-30] MEDS ORDERED: PERCOCET 5-3251 EACH PO (06:49)
[2022-07-30] MEDS ORDERED: BACTRIM DS TAB1 EACH PO (06:49)
[2022-07-30] MEDS ORDERED: FLOMAX0.4 MG PO (06:49)
[2022-07-30] MEDS ORDERED: ONDANSETRON ODT8 MG PO (06:49)
== END 2022-07-30 07:24 | disposition home or self-care (01) ==
LOC: ED 03:46
DX: N20.0 Calculus of kidney (principal); Z20.822 Contact with and (suspected) exposure to COVID-19; Z87.891 Personal history of nicotine dependence; Z91.018 Allergy to other foods; Z88.0 Allergy status to penicillin; Z88.8 Allergy status to other drugs, medicaments and biological substances; Z88.1 Allergy status to other antibiotic agents
CPT/HCPCS: 36415; 74018; 74176; 80053; 81001; 84703; 85025; 85610; 87502; 96374; 96375; 99284-25; A9270; C9803; J1170; J2270; J2405; U0003

== ENCOUNTER 2022-09-24 09:03 | Inpatient (IN) | payer OTHER ==
[~2022-09-24] VITALS: Ht 172.7 cm; Wt 140.4 kg
[~2022-09-24 09:03] MED LIST changes: +FLOMAX0.4 MG PO; +PERCOCET 5-3251 EACH PO
--- OUTSIDE RECORDS SUMMARY | 2022-09-24 09:06 | XMS ---
PreManage Notification: FLORENCE NERI Security Devulcanizer Operator Events No recent Security Events currently on file CRITERIA MET - Group Notification - PDMP CARE PROVIDERS POPPY MC Physician Hat Liner 10/22/2021-Current PHONE: [phone] Sydni Analyst 04/30/2021-Current PHONE: [phone] KO SIMEON Physician Hat Liner 05/25/2021-Current PHONE: [phone] CINDA BARFIELD [facility] 02/11/2020-Current PHONE: [phone] Care Guidelines exist for the following facilities: [facility] ( 10/05/2020 ) [facility] ( 11/04/2019 ) [facility] ( 09/02/2019 ) Care History Substance Use/Overdose 02/06/2020 [facility] PATIENT WAS SCHEDULED FOR FOLLOWUP WITH [facility] FOR METHADONE TREATMENT 02/06/[address] RAMIREZ.\T\nbsp; WAS DISCHARGED WITH ENOUGH METHADONE TO LAST UNTIL THIS APPOINTMENT.\T\nbsp; PATIENT DID NOT SHOW UP FOR APPOINTMENT. \T\nbsp;\T\nbsp; IF PATIENT COMES TO ED FOR METHADONE TELL HER TO CALL THE [facility] TO RESCHEDULE APPOINTMENT . Medical/Surgical 08/18/2020 [facility] - PATIENT WAS LAST SEEN BY PCP -CHARISSA SIMEON ON 07/08/2020. - PCP LISTED IN [facility] WAS NOT ACCURATE- CHW UPDATED INFO AND SENT RECENT ED RECORDS TO PROVIDER OFFICE -PROVIDER REQUESTED. 07/13/2020 [facility] Care Recommendation: - PLEASE REVIEW PDMP ON THE TONY - USE EXTREME CAUTION IN GIVING NARCOTICS. - Avoid Discharge Narcotic prescriptions if at all possible. Physician discretion. 02/11/2020 [facility] - PATIENT HAS BEEN REFERRED TO DR PRESCOTT, DR RAMIREZ FOR PAIN MGMT WHEN PATIENT WAS LAST HOSPITALIZED ALL APTS WERE SCHEDULED. PATIENT NO SHOWED TO FOLLOW UP APTS. - PATIENT WAS SET UP WITH [employer] FOR FOLLOW UP APT AND NO SHOWED TO THE APT. - PATIENT HAS BEEN PROVIDED TRANSPORTATION NUMBER FOR TO AND FROM APTS. - CHW IS UNABLE TO CONTACT PATIENT AT CURRENT HOTEL RESIDENCE- DOES NOT RETURN CALLS. E.D. VISIT COUNT (12 MO.) [address] [facility] TOTAL 4 NOTE: Visits indicate total known visits. ED/UCC VISIT TRACKING (12 MO.) 09/24/2022 09:04 [facility]DR[facility] [place] TYPE: Emergency COMPLAINT: - FLANK PAIN 2022 03:47 [facility]DR[facility] [place] TYPE: Emergency COMPLAINT: - BLOOD IN STOOL DIAGNOSES: - Allergy status to penicillin - Contact with and (suspected) exposure to COVID-19 - Calculus of kidney - Personal history of nicotine dependence - Allergy to other foods - Melena - Allergy status to other antibiotic agents - Allergy status to other drugs, medicaments and biological substances 12/01/2021 17:44 [facility] [place] TYPE: Emergency COMPLAINT: - VAGINAL BLEEDING DIAGNOSES: - Dizziness and giddiness - Allergy status to other antibiotic agents - Allergy status to other drugs, medicaments and biological substances - Allergy status to penicillin - Bee allergy status - Urinary tract infection, site not specified - Post-traumatic stress disorder, unspecified - Other fdc (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 - Radiographic dye allergy status - Allergy status to analgesic agent - Migraine, unspecified, not intractable, without status migrainosus - Personal history of nicotine dependence 10/21/2021 09:07 [facility] [place] TYPE: Emergency COMPLAINT: - LOWER ABD PAIN, N/V DIAGNOSES: - Other fdc (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 - Constipation, unspecified - Allergy status to other drugs, medicaments and biological substances - Allergy status to penicillin - Migraine, unspecified, not intractable, without status migrainosus - Allergy status to other antibiotic agents - Urinary tract infection, site not specified - Hypothyroidism, unspecified - Lower abdominal pain, unspecified - Personal history of nicotine dependence - Bee allergy status INPATIENT VISIT TRACKING (12 MO.) No inpatient visits to display in this time frame [email or web address]
--- NOTE | 2022-09-24 18:42 | NUR ---
THIS RN TO ROOM TO ASSIST WITH IV START. ULTRASOUND GUIDED IV SITE INFILTRATED. PT REQUESTS A 2ND IV SITE "INCASE THE OTHER ONE IS BAD" AND SHE NEEDS PAIN MEDICATIONS. IV STARTED TO RIGHT HAND PER PROTCOL. PT TOLERATED WELL. BRISK BLOOD RETURN NOTED. IV SALINE LOCKED AT THIS TIME, ALCOHOL CAP APPLIED. NO ADDITIONAL REQUESTS OR COMPLAINTS. PT WORKING WITH PRIMARY RN FOR ADMISSION ASSESSMENT AND INTAKE. WARM BLANKET PROVIDED. PT PROVIDED WITH APPLESAUCE AND 7-UP PER HER REQUEST.
--- NOTE | 2022-09-24 18:58 | NUR ---
PT ARRIVED TO FLOOR AT 1800 VIA STRETCHER BY JOANNA SCOTT. TYLER REPORTED THAT HER US GUIDED IV INFILTRATED SHORTLY BEFORE TRANSPORT. DC'D ON ARRIVAL. IV IN SHOULDER IS PATENT. SECONDARY IV IN RIGHT HAND PLACED BY JOANNA FAM. PT HAD A STENT PLACED ON THE LEFT SIDE 10 DAYS AGO AT [facility]. SHE HAS BEEN IN CONSTENT PAIN SINCE. SHE HAS NO HOME MEDICATIONS, BUT IS TAKING METHADONE, WHICH SHE TAKES AT HOME. [place]ES AT [place] [phone] WITH HER FIANCE. SEVERE PAIN AND ANXIETY WITH VOIDS. VOIDED ON TRANSFER TO UNIT 200 ON THE FLOOR. PAIN WAS CONTROLED WITH PRN MEDS. PT RESTING COMFORTABLY.
--- NOTE | 2022-09-24 19:00 | NUR ---
ASSUMED CARE OF PATIENT UPON RECEIVING BEDSIDE HANDOFF REPORT FROM DAY NURSE. PT AOX4, RESTING IN BED, PAIN WELL-CONTROLLED, NAD, NO C/O. WILL CONTINUE TO MONITOR AND FOLLOW POC.
--- NOTE | 2022-09-24 22:56 | NUR ---
ROUNDED ON pt, pt RESTING IN BED WITH EYES CLOSED. ON RA, RR EVEN AND UNLABORED. NO DISTRESS NOTED. CALL LIGHT IN REACH.
--- NOTE | 2022-09-25 03:40 | NUR ---
call light answered, pt reports need to void. pt used laura stedy to transfer to bsc and voided 400mls concentrated and foul smelling urine, pt back to bed. call light in reach. iv site wnyifan. curtis kaplan providing soda per pt request.
--- NOTE | 2022-09-25 04:00 | NUR ---
in room to reassess pain following void, pt found awake and watching tv from phone, facial grimacing noted and pt reports continued pain, pt educated on using call light so staff can assist with needs, primary rn made aware and plans to give prn pain medication-see emar. call light remains in reach.
--- NOTE | 2022-09-25 06:50 | NUR ---
PT WITH NO ACUTE EVENTS OVERNIGHT. WILL CONTINUE TO MONITOR AND FOLLOW POC.
--- NOTE | 2022-09-25 07:47 | NUR ---
PT SNORING SOFTLY AT TIME OF SHIFT REPORT, LEFT UNDISTURBED. AWAKENS TO VOICE NOW, AGREES SHE IS COMFORTABLE. RESTING IN BED WATCHING TV CALL LIGHT AND NEEDED ITEMS IN REACH.
--- NOTE | 2022-09-25 09:54 | NUR ---
PT FALLING ASLEEP DURING CONVERSATION AND VITALS. RN NOTIFIED. CALL LIGHT IN REACH. NO FURTHER NEEDS AT THIS TIME.
--- NOTE | 2022-09-25 11:16 | NUR ---
PT EATS 100% OF MORNING MEAL CONTINUES IN BED. ENCOURAGED UP TO THE CHAIR SHE REFUSES. C/O HEADACHE TYLENOL WAS GIVEN AND EFFECTIVE. DR DEL ROSARIO IN TO SEE PT NEW ORDERS FOR AZO WRITTEN. PT UP TO VOID, DOES WELL WITH SIT TO STAND LIFT. URINATION REPORTEDLY EXTREMELY PAINFUL. PT RETURNS TO BED, MEDICATED FOR PAIN. LEFT TO REST. CALL LIGHT AND NEEDED ITEMS IN REACH
--- NOTE | 2022-09-25 13:58 | NUR ---
PT SITTING UP IN BED BOYFRIEND AND HER DOG ARE PRESENT. SHE DENIES NEEDS AT THIS TIME AGREES SHE IS COMFORTABLE
--- NOTE | 2022-09-25 16:26 | NUR ---
PT UP TO THE SHOWER FOR PERSONAL CARES. HAIR WASHED AND FULL SHOWER. LINENS CHANGED. ALL PERSONAL CARE ITEMS PROVIDED. PT TO BED SITTING UP ON EDGE TO WORK ON A PERSONAL CRAFT. FRESH H20 AND ICE TEA PROVIDED, CALL LIGHT IN REACH. PT DENIES OTHER NEEDS OF.
--- NOTE | 2022-09-25 17:42 | NUR ---
PT TOLERATES ENTIRE EVENING MEAL SITTING UP IN BED NO C/O DISCOMFORTS OR NEEDS.
--- NOTE | 2022-09-25 19:00 | NUR ---
ASSUMED CARE OF PT UPON RECEIVING BEDSIDE HANDOFF REPORT FROM DAY NURSE. PT SITTING UP IN BED, AOX4, NAD, NO C/O. WILL CONTINUE TO MONITOR AND FOLLOW POC.
--- NOTE | 2022-09-25 19:45 | NUR ---
soda provided per patient. no other needs at this time.
--- NOTE | 2022-09-25 20:00 | NUR ---
PATIENT CALLED TO USE THE BEDSIDE COMMODDE. 1 PA. PATIENT ABLE TO PIVOT. PATIENT STATED SHE DOES NOT NEED THE ORALIA STEADY THIS TIME. PATIENT IS BACK IN BED. PATIENT VOIDED 300ML REDDISH DARK BROWN URINE. PRIMARY RN SAW IT AND TOLD THIS MANAGER LIGHTING THAT THE COLOR OF THE URINE IS FROM PATIENT'S MEDICATION SHE IS TAKING.
--- NOTE | 2022-09-25 20:32 | NUR ---
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 PUT SEIZURE PRECAUTIONS IN PLACE. PT HAD NOT HAD A SEIZURE RECENTLY. NO NEW ORDERS REC'D. WILL CONTINUE TO MONITOR AND FOLLOW POC.
--- NOTE | 2022-09-25 23:45 | NUR ---
1 pa to bedside commode. patient is back in bed. no other needs at this time.
--- NOTE | 2022-09-26 03:06 | NUR ---
PT. SLEEPING. EASILY AROUSED. NO CHANGE TO PREVIOUS ASSESSMENT.
--- NOTE | 2022-09-26 05:01 | NUR ---
PATIENT CALLED TO USE THE BEDSIDE COMMODE. PATIENT REFUSED TO USE THE ORALIA STEADY STATED "I DONT NEED IT". PATIENT PIVOT TO BEDSIDE COMMODE AND BACK TO BED. PATIENT REQUESTED FOR PAIN MEDICATION. PRIMARY RN NOTIFIED.
--- NOTE | 2022-09-26 05:53 | NUR ---
AT BEDSIDE TO ADMINISTER REQUESTED PAIN MEDICATION. ASKED PATIENT ABOUT QUALITY AND LOCATION OF PAIN. ALSO ASKED FOR CLARIFICATION IF PT WANTED ADDITIONAL PRN MED TO HELP WITH PAIN AT DISTAL URETHRA, PT WAS GIVING CONFLICTING ANSWERS AND WAS TRYING ASCERTAIN IF SHE WOULD LIKE TO TAKE AZO SHE DID PREVIOUSLY AT HOME AND ALSO LAST NIGHT. PT BECAME AGITATED AND YELLED AGRESSIVELY, "THIS IS WHY I DONT EVER WANT TO COME TO THE HOSPITAL! YOU DONT NEED TO ASK ME QUESTIONS ABOUT WHY THIS OR WHY THAT. IT DOESN'T HAVE ANYTHING TO DO WITH YOU DOING YOUR JOB." THIS INTERNET E COMMERCE SPECIALIST FINISHED ADMINISTERING IV PAIN MED AND CALMLY INFORMED PT WE WILL CONTINUE TO SPEAK RESPECTFULLY TO EACH OTHER WE HAVE BEEN, AND EDUCATED PT THAT ASKING QUESTIONS AND FOR THE PT TO CLARIFY THEIR PAIN IS NECCESSARY AND REQUIRED IN ASSESSING PAIN, IN ORDER TO DETERMINE BEST COURSE OF ACTION TO HELP THE PT BECOME MORE COMFORTABLE. ASSURED PT THAT THERE IS NO OTHER MOTIVATION OR INNUENDO BEHIND THESE QUESTIONS, PT HAD EXPRESSED ON A PREVIOUS SHIFT THAT SHE DOESN'T ASK FOR PAIN MEDS BECAUSE WHENEVER SHE DOES "I GET TREATED LIKE AN ADDICT!" INFORMED PT IF SHE DECIDES SHE WOULD LIKE TO TAKE THE AZO TO PLEASE CALL. PT STATES SHE HAS NO OTHER NEEDS AT THIS TIME. CHARGE NURSE AWARE.
--- NOTE | 2022-09-26 06:39 | NUR ---
SBA TO BEDSIDE COMMODE. PATIENT IS BACK IN BED. PATIENT IS ASKING FOR PAIN MEDICATION. PRIMARY RN NOTIFIED.
--- NOTE | 2022-09-26 07:00 | NUR ---
PT WITH NO ACUTE EVENTS OVERNIGHT. VSS, NAD, MEDICATED PER MAR. HANDED OFF PATIENT CARE TO DAY NURSE DURING BEDSIDE REPORT.
--- NOTE | 2022-09-26 07:15 | NUR ---
pt refused to get up in chair. pt stated no needs at this time. call light within reach no further tasks at this time
--- NOTE | 2022-09-26 07:25 | NUR ---
PT RESTING IN BED WATCHING TV. NEEDED ITEMS ARE AT BEDSIDE ALONG WITH CALL LIGHT. PT AGREES SHE IS COMFORTABLE DENIES NEEDS AT THIS TIME.
--- NOTE | 2022-09-26 09:44 | NUR ---
PT SITTING UP IN BED C/O INTERACTION WITH NOC RN. PT NOTIFIED SHE WILL HAVE A DIFFERENT RN TONIGHT, DENIES OTHER NEEDS IN THIS REGAURD. PT CONTINUES TO HAVE DYSURIA DENIES ANY IMPROVEMENT SINCE ABX AND AZO THERAPIES STARTED. SHE REPORTS WANTING THE STENT OUT AND THAT SHE DOESN'T KNOW WHY IT WAS PLACED. FFRESH H20 TO BEDSIDE WELL 7UP. NO C/O DISCOMFORTS DENIES NEEDS TO TOILET OR OTHER
--- NOTE | 2022-09-26 11:00 | NUR ---
Spoke with Melanie. She states her address on file is not correct. Pt is currently living at [facility]. She is disabled. Pt uses a wc. She can get in and out of her hotel without problem. She states he wc is small and she does not go out much as her wc does not fit her. Her PCP was Davina Martinez at [facility], but she no longer works there. Pt is not sure who she is to see. She states she uses [facility] and calls them for medical rides. I will contact [facility] and check for her current PCP, schedule an appt with PCP, and ask if they can order her a bariatric wc. Concern is bariatric wc may not be available as pt is below the wt. limit.
--- NOTE | 2022-09-26 12:06 | NUR ---
DR DEL ROSARIO IN TO SEE PT. SHE HAS REMAINED IN BED THIS SHIFT REFUSING UP TO THE CHAIR. AT LAST TOILETING SHE REFUSED SIT TO STAND LIFT STATING SHE WAS TRANSFERRING PRETTY GOOD WITHOUT IT TO [facility]. PT TRANSFERS INDEPENDANTLY TO AND FROM [facility]. REQUESTS PAIN MED AT THIS TIME BOTH DILAUDID AND AZO PROVIDED.
--- NOTE | 2022-09-26 12:56 | NUR ---
PT ALERT, ORIENTED AND LAYING IN BED WITH RM DARKENED AND TV ON. PT WELCOMED ME IN, COULD TELL PT WAS SOMEWHAT SURPRISED BY MY VISIT. GAINED TRUST OF PT, HAD GOOD, HONEST VISIT. PT BEGAN TO TELL ME SHE HAS BEEN DISSATIFIED WITH RN CARE SHE HAS RECEIVED. JOANNA FUNEZ NOW HER RN, IS GREAT. PT STATED SHE HAS PTSD, AND QUESTIONS ASKED BY DIRECTOR REGULATORY COMPLIANCE RN, ACTIVATED HER PAINFUL EPISODES. GAVE COMFORT, REASSURANCE AND PT REQUESTED PRAYER. PT WOULD ALSO LIKE THE DOMESTIC TECHNICIAN TO VISIT TODAY. WILL INFORM FR MCNULTY. JAN G.POST AND GAVE BLESSING.
--- NOTE | 2022-09-26 13:00 | NUR ---
Called and spoke with Pat COBOS. She states pt is now under the care of Zackary LYN. She scheduled pt for a fu appt on Monday10/03/22 at 2 pm. I will notify pt so she can schedule [facility] transport. I will give the pt the contract for [employer] to obtain a bariatric wc until she can get one from [facility], if they will provide.
--- NOTE | 2022-09-26 15:17 | NUR ---
PT UP TO TOILET AGAIN. SHE CONTINUES TO SELF TRANSFER WITHOUT OBVIOUS DIFFICULTY, NO ASSIST. RETURNS TO RESTING IN BED.
--- NOTE | 2022-09-26 16:48 | NUR ---
PT UP TO TOILET AGAIN TRANSFERS EASILY WITHOUT ASSIST. SHE IS CRYING AFTER TOILETING STATING HOW BADLY IT HURTS AT HER URETHRAL SITE. ICE PACK PROVIDED. PT DENIES NEED OF ANYTHING ELSE AT THIS TIME
--- NOTE | 2022-09-26 22:10 | NUR ---
CALL LIGHT ANSWERED. PATIENT GOT UP TO USE THE BEDSIDE COMMODE. PATIENT IS BACK IN BED NOW. WARM BLANKET AND WARM PACK PROVIDED. NO OTHERN NEEDS AT THIS TIME.
--- NOTE | 2022-09-27 02:02 | NUR ---
PT LYING IN BED RESTING QUIETLY. RESP EVEN ET UNLABORED ABLE TO MAKE NEEDS KNWON. PT CONTINUES TO HAVE PAIN WHEN URINATING AND STATED SHE WANTS THE URETERAL STENT OUT. PT HAS RECEIVED PRN PAIN MEDICATION 2X AT THIS TIME. MED WAS EFFECTIVE EACH TIME. PT REQUIRES STANDBY ASSIST WHEN TRANSFERRING FROM BED TO BEDSIDE COMMODE. PT REMAINS ON IV ABT. NO PAIN OR DISTRESS NOTED AT THIS TIME.
--- NOTE | 2022-09-27 02:45 | NUR ---
PATIENT CALLED. PATIENT WAS UP TO BEDSIDE COMMODE. PATIENT IS BACK IN BED. WARM PCK PROVIDED. NO OTHER NEEDS AT THIS TIME.
--- NOTE | 2022-09-27 04:30 | NUR ---
CALL LIGHT ANSWERED. PT UP TO BSC TO VOID. ABLE TO DO OWN ANDREI CARE. BACK TO BED. REPORTS "FRONT PELVIC" PAIN 04/30. PRN FOR PAIN ADMIN PER EMAR. NO FURTHER NEEDS.
--- NOTE | 2022-09-27 07:24 | NUR ---
pt refused to get out of bed. call light within reach no further tasks at this time
--- NOTE | 2022-09-27 07:45 | NUR ---
PT RESTING IN BED. PT WITH COMPLAINT OF PAIN AFTER URINATION, [id number], GIVEN 1 MG IV DILAUDID AND PO TYLENOL. PT ON ROOM AIR, LUNG SOUNDS CLEAR, DENIES SOB. PT REPORT NAUSEA AND POOR APPETITE, DENIES NEED FOR ANTIEMETIC. PT WITH CHRONIC NUMBNESS AND WEAKNESS IN BILATERAL FEET, CMS OTHERWISE INTACT, WITHOUT EDEMA. IV FLUIDS INFUSING NS AT 125 ML/HR. CAREERS COUNSELLOR ADMINISTERING MEDICATIONS WITH POT ROOM TAPPER. PT DENIES OTHER NEEDS AT THIS TIME.
[2022-09-27] MEDS ORDERED: CEFDINIR300 MG PO ×2 (10:01→12:45)
[2022-09-27] MEDS ORDERED: URINARY PAIN RE95 MG PO (10:02)
[2022-09-27] MEDS ORDERED: PERCOCET 5-3251 EACH PO (10:02)
--- NOTE | 2022-09-27 10:05 | NUR ---
PT REQUESTING PAIN MEDICATION, DISCUSSED WITH PT WHAT HER CONVERSATION WITH MD WAS THIS AM, PT STATES SHE IS PLANNING TO DISCHARGE. DISCUSSED PAIN MEDICATION WITH DR. LOUIE, VERBAL ORDER FOR PERCOCET 10/325 MG ONCE HE WILL BE DISCHARGING HER HOME WITH PERCOCET.
--- NOTE | 2022-09-27 10:32 | NUR ---
PT GIVEN PERCOCET 10/325 MG PER ORDER. DISCUSSED DISCHARGE PLAN, APPROXIMATELY 1 HOUR ON IV ANTIBIOTIC INFUSION. PT WILL NEED CARE RIDE HOME. PT DENIES OTHER NEEDS AT THIS TIME.
--- NOTE | 2022-09-27 11:35 | NUR ---
DISCHARGE INSTRUCTIONS REVIEWED WITH PT AND CAREGIVER. ALL QUESTIONS ANSWERED.
--- NOTE | 2022-09-27 12:18 | NUR ---
PREPARING PT FOR DISCHARGE, DISCHARGE VITAL SIGNS BP 186/108, DISCUSSED WITH DR DEL ROSARIO, ONE TIME ORDER FOR LISINOPRIL 10 MG, GIVEN. WILL REASSESS BP IN APPROXIMATELY 30-45 MINUTES BEFORE PROCEEDING WITH DISCHARGE.
[2022-09-27] MEDS ORDERED: CEFPODOXIME PR200 MG PO (12:31)
[2022-09-27] MEDS ORDERED: LISINOPRIL10 MG PO (12:31)
== END 2022-09-27 13:18 | disposition home or self-care (01) | DRG 698 ==
LOC: ED 09:03 → MS 17:09
PROVIDERS: ADMIT Family Medicine; ATTEND Family Medicine
DX: T83.592A Infection and inflammatory reaction due to indwelling ureteral stent, initial encounter (principal); A41.9 Sepsis, unspecified organism; N12 Tubulo-interstitial nephritis, not specified as acute or chronic; G61.81 Chronic inflammatory demyelinating polyneuritis; G60.0 Hereditary motor and sensory neuropathy; Z20.822 Contact with and (suspected) exposure to COVID-19; K21.9 Gastro-esophageal reflux disease without esophagitis; F43.10 Post-traumatic stress disorder, unspecified; G43.909 Migraine, unspecified, not intractable, without status migrainosus; Z87.891 Personal history of nicotine dependence; Z98.890 Other specified postprocedural states; Z98.891 History of uterine scar from previous surgery; Z88.0 Allergy status to penicillin; Z88.1 Allergy status to other antibiotic agents; Z88.8 Allergy status to other drugs, medicaments and biological substances; Z91.030 Bee allergy status; Z91.041 Radiographic dye allergy status; Z79.899 Other long term (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; Y83.1 Surgical operation with implant of artificial internal device as the cause of abnormal reaction of the patient, or of later complication, without mention of misadventure at the time of the procedure
CPT/HCPCS: 36415; 71045; 74176; 80053; 81001; 83605; 83735; 84100; 85025; 87040; 87088; 87502; 96361; 96365; 96375; 96376; 99285-25; A9270; C9803; J0692; J1170; J1650; J2270; J7030; U0003

== ENCOUNTER 2022-10-22 11:22 | Emergency (ER) | payer OTHER ==
[~2022-10-22] VITALS: Ht 172.7 cm; Wt 141.0 kg
[~2022-10-22 11:22] MED LIST changes: +CEFPODOXIME PR200 MG PO; +LISINOPRIL10 MG PO; +URINARY PAIN RE95 MG PO
--- OUTSIDE RECORDS SUMMARY | 2022-10-22 11:24 | XMS ---
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 Events No recent Security Events currently on file CRITERIA MET - [facility] - [facility] - 2 Visits in 30 Days - Group Notification CARE PROVIDERS -, Usman Mcleanbanner- Dentist: [place] Supervisor Formerly [facility] PHONE: [phone] POPPY [facility] Physician Schedule Checker 10/22/2021-Current PHONE: [phone] Sydni Farm Crew Leader 04/30/2021-Current PHONE: [phone] KO SIMEON Physician Schedule Checker 05/25/2021-Current PHONE: [phone] CINDA BARFIELD [facility] 02/11/2020-Current PHONE: [phone] Care Guidelines exist for the following facilities: [facility] ( 10/05/2020 ) [facility] ( 11/04/2019 ) [facility] ( 09/02/2019 ) Care History Medical/Surgical 08/18/2020 [facility] - PATIENT WAS LAST SEEN BY PCP -CHARISSA SIMEON ON 07/08/2020. - PCP LISTED IN [facility] WAS NOT ACCURATE- W UPDATED INFO AND SENT RECENT ED RECORDS TO PROVIDER OFFICE -PROVIDER REQUESTED. 07/13/2020 [facility] Care Recommendation: - PLEASE REVIEW PDMP ON THE TONY - USE EXTREME CAUTION IN GIVING NARCOTICS. - Avoid Discharge Narcotic prescriptions if at all possible. Physician discretion. 02/11/2020 [facility] - PATIENT HAS BEEN REFERRED TO DR ASHLEY PAGE FOR PAIN MGMT WHEN PATIENT WAS LAST HOSPITALIZED ALL APTS WERE SCHEDULED. PATIENT NO SHOWED TO FOLLOW UP APTS. - PATIENT WAS SET UP WITH [employer] FOR FOLLOW UP APT AND NO SHOWED TO THE APT. - PATIENT HAS BEEN PROVIDED TRANSPORTATION NUMBER FOR TO AND FROM APTS. - [facility] IS UNABLE TO CONTACT PATIENT AT CURRENT HOTEL RESIDENCE- DOES NOT RETURN CALLS. Substance Use/Overdose 02/06/2020 [facility] PATIENT WAS SCHEDULED FOR FOLLOWUP WITH [facility] FOR METHADONE TREATMENT 02/06/[address] RAMIREZ.\T\nbsp; WAS DISCHARGED WITH ENOUGH METHADONE TO LAST UNTIL THIS APPOINTMENT.\T\nbsp; PATIENT DID NOT SHOW UP FOR APPOINTMENT. \T\nbsp;\T\nbsp; IF PATIENT COMES TO ED FOR METHADONE TELL HER TO CALL THE [facility] TO RESCHEDULE APPOINTMENT . E.D. VISIT COUNT (12 MO.) 4 [facility] TOTAL 4 NOTE: Visits indicate total known visits. ED/C VISIT TRACKING (12 MO.) 10/22/2022 11:23 [facility] [place] TYPE: Emergency COMPLAINT: - SEIZURE 09/24/2022 09:04 [facility] [place] TYPE: Emergency COMPLAINT: - FLANK PAIN 2022 03:[address] [facility] [place] TYPE: Emergency COMPLAINT: - BLOOD IN STOOL DIAGNOSES: - Contact with and (suspected) exposure to COVID-19 - Calculus of kidney - Personal history of nicotine dependence - Allergy to other foods - Melena - Allergy status to other antibiotic agents - Allergy status to other drugs, medicaments and biological substances - Allergy status to penicillin 12/01/2021 17:44 [facility] [place] TYPE: Emergency COMPLAINT: - VAGINAL BLEEDING DIAGNOSES: - Allergy status to other drugs, medicaments and biological substances - Allergy status to penicillin - Bee allergy status - Urinary tract infection, site not specified - Post-traumatic stress disorder, unspecified - Other nursing home (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 - Radiographic dye allergy status - Allergy status to analgesic agent - Migraine, unspecified, not intractable, without status migrainosus - Personal history of nicotine dependence - Dizziness and giddiness - Allergy status to other antibiotic agents INPATIENT VISIT TRACKING (12 MO.) 09/24/2022 17:[address] [facility] [place] TYPE: Medical Surgical COMPLAINT: - SEPSIS PYELONEPHRITIS DIAGNOSES: - Hereditary motor and sensory neuropathy - History of uterine scar from previous surgery - Other terminal worker (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 - Other nursing home (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 - Chronic inflammatory demyelinating polyneuritis - History of uterine scar from previous surgery - Bee allergy status - Migraine, unspecified, not intractable, without status migrainosus - Gastro-esophageal reflux disease without esophagitis - Post-traumatic stress disorder, unspecified - Tubulo-interstitial nephritis, not specified as acute or chronic - Allergy status to penicillin - Personal history of nicotine dependence - Chronic inflammatory demyelinating polyneuritis - Contact with and (suspected) exposure to COVID-19 - Other specified postprocedural states - Other specified postprocedural states - Contact with and (suspected) exposure to COVID-19 - Allergy status to other drugs, medicaments and biological substances - Allergy status to other antibiotic agents - Personal history of nicotine dependence - Migraine, unspecified, not intractable, without status migrainosus - Sepsis, unspecified organism - Infection and inflammatory reaction due to indwelling ureteral stent, initial encounter - Tubulo-interstitial nephritis, not specified as acute or chronic - Bee allergy status - Post-traumatic stress disorder, unspecified - Surgical operation with implant of artificial internal device as the cause of abnormal reaction of the patient, or of later complication, without mention of misadventure at the time of the procedure - Allergy status to other antibiotic agents - Allergy status to other drugs, medicaments and biological substances - Gastro-esophageal reflux disease without esophagitis - Radiographic dye allergy status - Hereditary motor and sensory neuropathy - Radiographic dye allergy status - Allergy status to penicillin [email or web address]
[2022-10-22] MEDS ORDERED: PHENAZOPYRIDIN100 MG PO (11:36)
[2022-10-22] MEDS ORDERED: LEVETIRACETAM500 MG PO (11:36)
== END 2022-10-22 13:30 | disposition home or self-care (01) ==
LOC: ED 11:22
DX: G40.909 Epilepsy, unspecified, not intractable, without status epilepticus (principal); F43.9 Reaction to severe stress, unspecified; F43.10 Post-traumatic stress disorder, unspecified; G43.909 Migraine, unspecified, not intractable, without status migrainosus; Z87.891 Personal history of nicotine dependence; Z91.041 Radiographic dye allergy status; Z88.6 Allergy status to analgesic agent; Z88.0 Allergy status to penicillin; Z91.030 Bee allergy status; Z88.1 Allergy status to other antibiotic agents; Z79.899 Other long term (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
CPT/HCPCS: 80053; 84703; 85025; 99284; G0480

== ENCOUNTER 2022-12-15 05:35 | Day surgery (SDC) | payer OTHER ==
[2022-12-12 15:18] VITALS: BP 146/91
[~2022-12-15] VITALS: Ht 172.7 cm; Wt 136.4 kg
[~2022-12-15 05:35] MED LIST changes: +FEROSUL325 MG PO; +LATUDA20 MG PO; +LEVETIRACETAM500 MG PO; +OMEPRAZOLE20 MG PO; +PHENAZOPYRIDIN100 MG PO; +PRAZOSIN HCL1 MG PO; +SEROQUEL25 MG PO
[2022-12-15 06:14] VITALS: BP 198/119
--- NOTE | 2022-12-15 07:47 | NUR ---
LE 0530 PATIENT ARRIVED TO DAY SURGERY TREATMENT ROOM. ADMISSION COMPLETE AT 0615. PATIENT VITAL SIGNS COMPLETED. BLOOD PRESSRE 192/115. SHARON HAZEL NOTIFIED AND DR. ALVARADO. BLOOD PRESSURE REPEATED 209/111, 219/113, 198/113. PATIENT WILL BE CANCELED AND RESCHEDULED. DR. ALVARADO ORDERED PATIENT HOME MEDICATIONS AND TO BE MONITORED. PATIENT AGREEABLE WITH PLAN OF CARE. CALL LIGHT WITHIN REACH NO FUTHER NEEDS. NO QUESTIONS.
[2022-12-15 08:00] VITALS: BP 181/106
[2022-12-15 08:20] VITALS: BP 196/124
--- NOTE | 2022-12-15 08:31 | NUR ---
LINN 0820 CALLED [facility] TO SET UP AN APPOINTMENT FOR THE PATIENT.
--- NOTE | 2022-12-15 09:11 | NUR ---
LE 0850: DR. Berrios CALLS BACK WITH ER RECOMMENDATION TO HAVE HER HANGOUT FOR ANOTHER HOUR AND LET THE LISINOPIRL KICK IN A LITTLE LONGER. LE 0909: PT IS EDUCATED ON THE RECOMMENDATIONS. SHE STATES THAT SHE WOULD RATHER GO HOME. STATING "I DIDN'T SLEEP LAST NIGHT AND I JUST WANT TO GO HOME". DR. Berrios IS CALLED AND NOTIFIED OF PT'S WISHES. DR. Berrois STATES THAT SHE WILL BE DOWN SHORTLY TO TALK WITH THE PT THIS WOULD CONSTITUTE AN AMA.
--- NOTE | 2022-12-15 10:04 | NUR ---
LE 0950 PATIENT BLOOD PRESSURE STILL ELEVATED. PATIENT GIVEN AMA PAPERWORK. PATIENT STATED "I KNOW IT IS GOING TO GO AWAY. I WANT TO JUST GO HOME." IV D/C'D WNL. PATIENT TRANSPORTATION CALLED. PATIENT WHEELED OUT OF FACILITY. NO FUTHER NEEDS.
--- NOTE | 2022-12-15 18:38 | EKG ---
[facility] [address] [facility] [place] [facility] [place] [address] Signed Normal sinus rhythm Normal ECG When compared with ECG of 30-AUG-2021 02:39, No significant change was found Confirmed by SHERRELL SHEIKH MD ([id number]) on 12/15/2022 6:38:42 PM Electronically Signed By: SHERRELL SHEIKH MD 12/15/22 1838 PATIENT NAME: FLORENCE NERI Electrocardiogram DATE OF : 84 PHYSICIAN: SHERRELL SHEIKH MD REPORT #: [id number] REPORT IS CONFIDENTIAL AND NOT TO BE RELEASED WITHOUT AUTHORIZATION
== END 2022-12-15 09:50 | disposition home or self-care (01) ==
LOC: OPS 05:35 → DS 05:35 → OPS 07:30 → DS 07:30 → OPS 09:50
PROVIDERS: ATTEND Obstetrics & Gynecology
DX: R10.2 Pelvic and perineal pain (principal); Z53.09 Procedure and treatment not carried out because of other contraindication; R03.0 Elevated blood-pressure reading, without diagnosis of hypertension; R82.90 Unspecified abnormal findings in urine
CPT/HCPCS: 81001; 84703; 87088; 93005; 93010; J7121

== ENCOUNTER 2023-09-09 21:41 | Emergency (ER) | payer OTHER ==
[~2023-09-09] VITALS: Ht 172.7 cm; Wt 117.3 kg
[~2023-09-09 21:41] MED LIST changes: +ACETAMINOPHEN500 M1 PO; +LISINOPRIL20 MG; +LISINOPRIL20 MG PO; +ZYPREXA2.5 MG PO
[2023-09-09 22:05] LABS: BASOPHILS 0.5 % (0-2); EOSINOPHILS 0.5 % (0-6); HEMATOCRIT 41.6 % (35.0-50.0); HEMOGLOBIN 13.6 g/dL (12.0-18.0); LYMPHOCYTES 11.7 % (24-44); MCH 26.8 (27-36); MCHC 32.6 g/dl (30-36); MONOCYTES 5.6 % (0-12); NEUTROPHILS 81.7 % (39-80); PLATELET COUNT 366 K/uL (140-440); RBC 5.07 M/ul (4.3-5.7); RDW 15.4 (10.5-15.0)
[2023-09-09 22:09] LABS: ALBUMIN 3.5 g/dL (3.4-5.0); ALBUMIN/GLOBULIN RATIO 0.88 (1.1-2.4); ANION GAP 14.2 (7-21); BILIRUBIN, TOTAL 0.3 ng/dL (0.2-1.0); BUN/CREATININE RATIO 9.8 (6.0-28.6); CALCIUM 8.8 mg/dL (8.5-10.1); CREATININE, SERUM 1.02 mg/dL (0.55-1.02); MAGNESIUM 2.1 mg/dL (1.8-2.4); POTASSIUM 4.2 mmol/L (3.5-5.1); PROTEIN, TOTAL 7.5 g/dL (6.4-8.2)
[2023-09-09] MEDS ORDERED: KEPPRA500 MG PO (23:11)
[2023-09-09 23:40] LABS: BILIRUBIN, URINE POSITIVE (negative); BLOOD/HGB, URINE NEGATIVE (Negative); KETONE, URINE NEGATIVE (Negative); LEUK ESTERASE, URINE TRACE (negative); NITRITE, URINE NEGATIVE (negative)
[2023-09-09 23:50] LABS: BACTERIA, URINE 1+ /hpf (negative); CRYSTALS, URINE CALCIUM OXALATE 1+ (0-1+); EPITHELIAL CELLS, URINE SQUAMOUS 2+ /lpf (0-1+); RED BLOOD CELLS, URINE 0-1 /hpf (0-5)
[2023-09-09 23:51] LABS: CASTS, URINE NONE SEEN \\lpf; COLLECTION TYPE, URINE CLEAN CATCH; REFLEX CULTURE, URINE No (No)
[2023-09-09 23:54] LABS: AMPHETAMINES, URINE NEGATIVE (NEGATIVE); BARBITURATES, URINE NEGATIVE (NEGATIVE); BENZODIAZEPINE, URINE NEGATIVE (NEGATIVE); BUPRENORPHINE, URINE NEGATIVE (NEGATIVE); CANNABINOID, URINE NEGATIVE (NEGATIVE); COCAINE, URINE NEGATIVE (NEGATIVE); ECSTASY, URINE NEGATIVE (NEGATIVE); FENTANYL, URINE NEGATIVE (NEGATIVE); METHADONE, URINE NEGATIVE (NEGATIVE); OPIATES, URINE NEGATIVE (NEGATIVE); OXYCODONE, URINE NEGATIVE (NEGATIVE); PHENCYCLIDINE, URINE NEGATIVE (NEGATIVE)
[2023-09-10 00:26] VITALS: BP 145/80
--- NOTE | 2023-09-10 15:02 | EKG ---
[facility] [address] [facility] [place] [address] \T\ T wave abnormality, consider inferior ischemia Abnormal ECG When compared with ECG of 15-DEC-2022 06:20, Questionable change in QRS axis ST now depressed in Inferior leads Confirmed by MATEO FARRELL MD ([id number]) on 09/10/2023 3:02:07 PM Electronically Signed By: MATEO FARRELL 09/10/23 1502 PATIENT NAME: FLORENCE NERI Electrocardiogram DATE OF : 84 PHYSICIAN: MATEO FARRELL REPORT #: [id number] REPORT IS CONFIDENTIAL AND NOT TO BE RELEASED WITHOUT AUTHORIZATION
== END 2023-09-10 00:30 | disposition home or self-care (01) ==
LOC: ED 21:41
PROVIDERS: Family Medicine
DX: R56.9 Unspecified convulsions (principal); G61.81 Chronic inflammatory demyelinating polyneuritis; G60.0 Hereditary motor and sensory neuropathy; Z88.6 Allergy status to analgesic agent; Z88.0 Allergy status to penicillin; Z91.041 Radiographic dye allergy status; Z91.030 Bee allergy status; Z88.1 Allergy status to other antibiotic agents; Z88.7 Allergy status to serum and vaccine; Z88.8 Allergy status to other drugs, medicaments and biological substances; Z79.899 Other long term (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; Z87.891 Personal history of nicotine dependence
CPT/HCPCS: 36415; 70450; 72125; 80053; 80307; 81001; 83735; 85025; 93005; 93010; 96374; 96375; 99284-25; J1953; J2060; J2405; J7121

== ENCOUNTER 2024-05-01 08:30 | Day surgery (SDC) | payer OTHER ==
[2024-04-24 14:35] VITALS: BP 149/79
[~2024-05-01] VITALS: Ht 172.7 cm; Wt 123.2 kg
[~2024-05-01 08:30] MED LIST changes: +CEPHALEXIN500 M1 PO; +IBLOOD GLUCOSE TEST STRIP 1 EA TEST VI PRN; +LACTATED RINGER'S 1,000 ML IV SCH; +LEVETIRACETAM1000 MG PO; +LIDOCAINE HCL 1% 5 ML SDV INJ ONE; +PRAZOSIN HCL2 MG PO; +SUBOXONE 8 MG-1 EAC1 SL; +VISTARIL25 MG PO; +propofoL 200 MG/20 ML VIAL ONE
[2024-05-01 08:43] VITALS: BP 164/93
[2024-05-01] MEDS ORDERED: dexmedeTOMIDine HCl 200 MCG/2 ML VIAL ONE (10:01)
[2024-05-01] MEDS ORDERED: ondansetron HCL 4 MG/2 ML VIAL ONE (10:01)
[2024-05-01] MEDS ORDERED: DEXAMETHASONE SOD PHOS 4 MG/ML VIAL ONE (10:06)
[2024-05-01] MEDS ORDERED: FAMOTIDINE 20 MG/ 2 ML VIAL ONE (10:06)
[2024-05-01] MEDS ORDERED: LACTATED RINGER'S 1,000 ML IV ONE (10:21)
--- NOTE | 2024-05-01 11:25 | NUR ---
05/01/24 1125 Ange Trinh 1059- PT ARRIVES TO PACU FROM OR VIA STRETCHER. PT IS NOT RESPONSIVE TO PAINFUL STIMULI AT THIS TIME. PT RESPIRATIONS ARE EVEN AND UNLABORED, NO SIGNS OF DISTRESS. 1113- PT EYES OPEN AND OPENS MOUTH AT THIS TIME FOR OPA REMOVAL. PT TITRATED TO RA D/T PULLING MASK OFF FACE. O2 >90% PER CONT PULSE OX. RESPIRATIONS REMAIN EVEN AND UNLABORED, NO SIGNS OF DISTRESS. PT CLOSES EYES. 1115- PT COUGHS AND TAKES DEEP BREATHS AT THIS TIME. PT FOLLOWS VERBAL INSTRUCTIONS WITHOUT DIFFICULTY. PT REMAINS DROWSY. HOB IS ELEVATED TO 30 DEGREES. 1116- PT EDUCATED ABOUT PASSING GAS AND STATES VERBAL UNDERSTANDING, PT PASSING GAS AT THIS TIME WITHOUT DIFFICULTY. 1122- PT ROTATED TO SUPINE AND HOB ELEVATED TO 45 DEGREES D/T BASELINE SLEEP APNEA AUDIBLY HEARD. PT CONTINUES TO BE DROWSY BUT RESPIRATIONS EVEN AND UNLABORED, NO SIGNS OF DISTRESS AT REST.
[2024-05-01 12:03] VITALS: BP 130/79
--- NOTE | 2024-05-01 13:52 | OR ---
[facility] [address] [place], [place] [address] Signed DATE OF OPERATION: 05/01/2024 SURGEON: Janina Gonzalez MD PREOPERATIVE DIAGNOSES: 1. Anemia. 2. Gastroesophageal reflux disease. 3. Personal history of colonic polyps in 2018 at the age of 37. 4. Intermittent rectal bleeding. 5. Maternal grandmother with colon polyps and colon cancer. 6. A paternal grandfather, mother, father and brother with colonic polyps. POSTOPERATIVE DIAGNOSES: 1. Mild distal gastritis. 2. Unremarkable colonoscopy. PROCEDURES: 1. EGD with CLOtest and biopsies of the duodenum and antrum. 2. Colonoscopy without biopsies. ESTIMATED BLOOD LOSS: None. INDICATIONS: Florence is a 43-year-old obese female, asked to see me for followup colonoscopy. She has been found to be anemic and is describing acid reflux. She says she has intermittent blood associated with her bowel movements. She went through a colonoscopy in 2018 at the age of 37 up around [place], [place]. She apparently had multiple colonic polyps removed. We are still trying to track down those results. She said her maternal grandmother had colon polyps and colon cancer. In addition, she said her paternal grandfather, mother, father and brother all had colonic polyps. When she came to the office, she was in her scooter and she no longer drives because apparently she has had seizures in the past. She came I think with a friend or a caregiver. I had reviewed her records before she came. She actually went through quite a bit of detail herself. In the office, I gave her a pamphlet on upper and lower endoscopy. We had reviewed the nature of the two tests. There is risk including, but not limited to gas bloating, crampy abdominal pain, bleeding, perforation requiring surgery, and missed diagnosis. We also reviewed the written instructions for the bowel prep line by line. Also, she is a large person with a very full round face, heavy chest and abdomen. She also has an extremely long list of medications. She also needs methadone multiple times Electronically Signed By: JANINA GONZALEZ MD 05/01/24 1352 PATIENT NAME: FLORENCE NERI OPERATIVE REPORT DATE OF : 84 REPORT #: [id number] PHYSICIAN: JANINA GONZALEZ MD PCP: JACE MARQUEZ PA-C REPORT IS CONFIDENTIAL AND NOT TO BE RELEASED WITHOUT AUTHORIZATION [facility] [address] [place], [place] [address] Signed each day. As a result, she is in need of monitored anesthesia care with propofol infusion. She did undergo preoperative blood work and an EKG. We can see that the preop blood work shows a hemoglobin borderline at 12.5 and her mean cell volume low 80.9. She had expressed understanding and wished to proceed. She understands an adult person has to take her home afterwards. PROCEDURE IN DETAIL: Florence was taken into our endoscopy suite and placed in the supine semi-recumbent position. She was placed under monitored anesthesia care with propofol infusion per our nurse stationary plant operators. A bite block was utilized for the case. The adult gastroscope was introduced and advanced down the 3rd portion of the duodenum. Because of her multiple symptoms, we went ahead and took a biopsy of the duodenum for pathologic review. The pyloric channel was unremarkable. She had minimal inflammatory changes in the very distal antrum. We went ahead and took a biopsy in this area for pathologic review as well as CLOtest. Otherwise, the incisura body and fundus of the stomach were unremarkable. Upon retroflexion of the scope, we really cannot appreciate an obvious hiatal hernia. The scope was withdrawn up through the area of the GE junction, which was compliant without stricture. She has very minimal disruption to the Z-line at 33 cm. No Irene's mucosa. No distal esophagitis. The middle and upper esophagus were unremarkable. After this, the gas was suctioned out and the gastroscope removed. Florence tolerated the upper endoscopy quite well. Florence was rotated into the left lateral decubitus position. She was maintained on IV propofol per our nurse stationary plant operators. A digital rectal exam was performed and this was unremarkable. She has no external hemorrhoids. She had good sphincter tone. There were no masses. The adult colonoscope was introduced and advanced all around into the cecum under direct visualization of the camera. It took a little extra sedation and abdominal compression to get the scope down into the cecum itself. Overall, her prep was satisfactory. She had a couple areas that I had to irrigate and suction out. She might consider some additional bowel prep in the future. The scope was then slowly withdrawn. We took several pictures throughout for photodocumentation. We found no pathology throughout the entire colon or rectum. Upon retroflexion of the scope, there was very minimal if any internal hemorrhoid tissue. After this, the gas was suctioned out and the colonoscope removed. Florence tolerated the procedure quite well. RECOMMENDATIONS: I will see Florence back in my office in 7 to 14 days to review her results. Janina Gonzalez MD Electronically Signed By: JANINA GONZALEZ MD 05/01/24 1352 PATIENT NAME: FLORENCE NERI OPERATIVE REPORT DATE OF : 84 REPORT #: [id number] PHYSICIAN: JANINA GONZALEZ MD PCP: JACE MARQUEZ PA-C REPORT IS CONFIDENTIAL AND NOT TO BE RELEASED WITHOUT AUTHORIZATION [facility] [address] [facility] [place], [place] [address] Signed ALB/MODL /[id number] cc: EBONI Monae MD Copies: JANINA GONZALEZ MD ~ Electronically Signed By: JANINA GONZALEZ MD 05/01/24 1352 PATIENT NAME: FLORENCE NERI OPERATIVE REPORT DATE OF : 84 REPORT #: [id number] PHYSICIAN: JANINA GONZALEZ MD PCP: JACE MARQUEZ PA-C REPORT IS CONFIDENTIAL AND NOT TO BE RELEASED WITHOUT AUTHORIZATION
--- NOTE | 2024-05-03 13:26 | PATH ---
[facility] [address] [place], [place] [address] Signed SPECIMEN(S): A DUODENAL BIOPSY SPECIMEN(S): B ANTRUM BIOPSY SPECIMEN SOURCE: A. DUODENAL BIOPSY B. ANTRUM BIOPSY CLINICAL HISTORY: History of polyp/rectal bleeding/family history of colon cancer, gastritis FINAL PATHOLOGIC DIAGNOSIS: A. Duodenum, biopsy: - Unremarkable duodenal mucosa, negative for active inflammation or significant villous blunting. B. Antrum, biopsy: - Minimal chronic gastritis with vascular congestion, no H. pylori bacteria are detected by HE stain. AMB MICROSCOPIC EXAMINATION: Histologic sections of all submitted blocks are examined by light microscopy. These findings, together with the gross examination, support the pathologic diagnosis. GROSS DESCRIPTION: A. The specimen, labeled and designated "Becki, duodenal biopsy," is received in formalin and consists of one aviles soft tissue fragment, 0.4 cm. Entirely submitted in (A1). B. The specimen, labeled and designated "Sandis, antrum biopsy," is received in formalin and consists of one aviles soft tissue fragment, 0.4 cm. Entirely submitted in (B1). VB (under the direct supervision of a pathologist) The Gross Description was prepared using a voice recognition system. The report was reviewed for accuracy; however, sound-alike word errors, addition and/or deletions may occur. If there is any question about this report, please contact Client Services. ADDITIONAL NOTES: Immunohistochemical and/or in situ hybridization studies if performed in this case included appropriate positive controls that reacted as expected. This test was developed and its performance PATIENT NAME: FLORENCE NERI PATHOLOGY DATE OF : 84 REPORT #: [id number] PHYSICIAN: VISHAL SHANNON PCP: JACE MARQUEZ PA-C REPORT IS CONFIDENTIAL AND NOT TO BE RELEASED WITHOUT AUTHORIZATION [facility] [address] [place] [id number] Signed characteristics determined by [facility]. It has not been cleared or approved by the U.S. Food and Drug Administration. The FDA has determined that such clearance or approval is not necessary. This test is used for clinical purposes. It should not be regarded as investigational or for research. [facility] is certified under the Clinical Laboratory Improvement Amendments of 1988 (CLIA) as qualified to perform high complexity clinical laboratory testing. PERFORMING LABORATORY: Technical component was performed by [facility], [address] [place] [id number] (CLIA# [id number]). Professional interpretation was performed by [facility] - [address] [id number] [id number] Diagnostician: Carlota Mckeon MD Pathologist Electronically Signed 05/03/2024 Copies: ~ PATIENT NAME: FLORENCE NERI PATHOLOGY DATE OF : 84 REPORT #: [id number] PHYSICIAN: VISHAL PATHOLOGY PCP: JACE MARQUEZ PA-C REPORT IS CONFIDENTIAL AND NOT TO BE RELEASED WITHOUT AUTHORIZATION
== END 2024-05-01 12:00 | disposition home or self-care (01) ==
LOC: DS 08:30
PROVIDERS: ATTEND Colon & Rectal Surgery
PROC: 0DB68ZX Excision of Stomach, Via Natural or Artificial Opening Endoscopic, Diagnostic (ICD-10-PCS; 2024-05-01)
PROC: 0DJD8ZZ Inspection of Lower Intestinal Tract, Via Natural or Artificial Opening Endoscopic (ICD-10-PCS; principal; 2024-05-01 09:45)
PROC: 0DB98ZX Excision of Duodenum, Via Natural or Artificial Opening Endoscopic, Diagnostic (ICD-10-PCS; 2024-05-01 09:45)
DX: K62.5 Hemorrhage of anus and rectum (principal); K29.50 Unspecified chronic gastritis without bleeding; D64.9 Anemia, unspecified; K21.9 Gastro-esophageal reflux disease without esophagitis; G60.0 Hereditary motor and sensory neuropathy; G43.909 Migraine, unspecified, not intractable, without status migrainosus; N20.0 Calculus of kidney; F43.10 Post-traumatic stress disorder, unspecified; E03.9 Hypothyroidism, unspecified; G40.909 Epilepsy, unspecified, not intractable, without status epilepticus; R07.9 Chest pain, unspecified; R10.2 Pelvic and perineal pain; R33.9 Retention of urine, unspecified; E66.9 Obesity, unspecified; Z68.41 Body mass index [BMI] 40.0-44.9, adult; Z86.010 Personal history of colon polyps; Z80.0 Family history of malignant neoplasm of digestive organs; Z87.891 Personal history of nicotine dependence; Z79.899 Other long term (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; Z88.8 Allergy status to other drugs, medicaments and biological substances; Z88.6 Allergy status to analgesic agent; Z88.0 Allergy status to penicillin; Z88.5 Allergy status to narcotic agent; Z88.1 Allergy status to other antibiotic agents
CPT/HCPCS: 00813; 36415; 87077; J1100; J2405; J2704; J7121

== ENCOUNTER 2024-08-06 08:52 | Inpatient (IN) | payer OTHER ==
[~2024-08-06] VITALS: Ht 172.7 cm; Wt 129.8 kg
[~2024-08-06 08:52] MED LIST changes: -IBLOOD GLUCOSE TEST STRIP 1 EA TEST VI PRN; -LACTATED RINGER'S 1,000 ML IV SCH; -LIDOCAINE HCL 1% 5 ML SDV INJ ONE; -propofoL 200 MG/20 ML VIAL ONE
[2024-08-06] MEDS ORDERED: SODIUM CHLORIDE 0.9% 1,000 ML IV ONE (09:15)
[2024-08-06] MEDS ORDERED: levETIRAcetam 500 MG/5 ML VIAL IV ONE (09:15)
[2024-08-06] MEDS ORDERED: ondansetron HCL 4 MG/2 ML VIAL IV ONE (09:15)
[2024-08-06] MEDS ORDERED: HYDROmorphone HCL 1 MG/ML SYR IV PRN ×2 (09:15→14:15)
[2024-08-06 09:42] LABS: BASOPHILS 0.9 % (0-2); EOSINOPHILS 1.3 % (0-6); HEMATOCRIT 43.5 % (35.0-50.0); HEMOGLOBIN 14.3 g/dL (12.0-18.0); LYMPHOCYTES 25.7 % (24-44); MCH 26.3 (27-36); MCHC 32.8 g/dl (30-36); MCV 80.1 fl (81-99); MONOCYTES 5.9 % (0-12); NEUTROPHILS 66.2 % (39-80); PLATELET COUNT 426 K/uL (140-440); RBC 5.43 M/ul (4.3-5.7); RDW 13.7 (10.5-15.0)
[2024-08-06 09:58] LABS: ALBUMIN 3.6 g/dL (3.4-5.0); ALBUMIN/GLOBULIN RATIO 0.88 (1.1-2.4); BILIRUBIN, TOTAL 0.3 ng/dL (0.2-1.0); CREATININE, SERUM 1.1 mg/dL (0.55-1.02); PROTEIN, TOTAL 7.7 g/dL (6.4-8.2)
[2024-08-06 10:54] LABS: BILIRUBIN, URINE NEGATIVE (negative); BLOOD/HGB, URINE TRACE-I (Negative); KETONE, URINE NEGATIVE (Negative); LEUK ESTERASE, URINE SMALL (negative); NITRITE, URINE POSITIVE (negative); PH, URINE 6.5 (5-7)
[2024-08-06 11:02] LABS: BACTERIA, URINE 3+ /hpf (negative); CASTS, URINE NONE SEEN \\lpf; CRYSTALS, URINE NONE SEEN (0-1+); EPITHELIAL CELLS, URINE SQUAMOUS 2+ /lpf (0-1+); RED BLOOD CELLS, URINE 0-1 /hpf (0-5); WHITE BLOOD CELLS, URINE 21-40 /HPF (0-5)
[2024-08-06 11:03] LABS: COLLECTION TYPE, URINE CLEAN CATCH; REFLEX CULTURE, URINE No (No)
[2024-08-06] MEDS ORDERED: MEROPENEM 1,000 MG in SODIUM CHLORIDE 0.9% 100 ML IV ONE (11:30)
[2024-08-06] MEDS ORDERED: HYDROmorphone HCL 1 MG/ML SYR IV ONE (11:45)
[2024-08-06] MEDS ORDERED: ENOXAPARIN SODIUM 40 MG/0.4 ML SYR SUB-Q SCH (11:54)
[2024-08-06 11:58] LABS: LACTIC ACID, BLOOD 0.8 mmol/L (0.4-2.0)
[2024-08-06] MEDS ORDERED: LACTATED RINGER'S 1,000 ML IV SCH (12:00)
[2024-08-06] MEDS ORDERED: OXYCODONE HCL 5 MG TAB PO PRN (12:00)
[2024-08-06] MEDS ORDERED: PHARMACY RENAL DOSE ADJUSTMENT 1 DOSE MISC PO SCH (12:00)
[2024-08-06] MEDS ORDERED: ACETAMINOPHEN 325 MG TAB PO PRN (12:00)
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
[2024-08-06 13:34] VITALS: BP 128/113
[2024-08-06] MEDS ORDERED: ondansetron HCL 4 MG/2 ML VIAL IV PRN (13:45)
--- NOTE | 2024-08-06 13:50 | NUR ---
DR FOLEY IN TO SEE PT AND EXAMINE. PT WAS POSITIVE FOR L) CVA PAIN ON HIS EXAMINATION. PT ALSO C/O PAINFUL URINATION.
[2024-08-06 14:15] VITALS: BP 128/113
--- NOTE | 2024-08-06 14:30 | NUR ---
MD NOTIFIED ABOUT PT MAKING A STATEMENT PT STATED "IF I AM GOING TO CONTINUE HAVING THIS PAIN THE REST OF MY LIFE I MIGHT WELL LOOK INTO THE DWD ( DYING WITH DIGNITY). PT DID NOT BRING UP THE SUBJECT OF SUICIDE DURING SCREENING AFTER.
[2024-08-06] MEDS ORDERED: hydrOXYzine pamoate 25 MG CAP PO PRN (16:15)
--- NOTE | 2024-08-06 16:30 | NUR ---
PT LAYING IN BED SLEEPING ON SIDE WITH CHEST RISE EQUAL BILAT. PT WAS THEN WOKEN BY THIS RN TO COMPLETE ASSESSMENT SCREENING. PT RESPONDED WELL AND WAS VERY FORWARD WITH HER PAST HISTORY. PT HAS EXTENSIVE KNOWLWEDGE OF HER PHM AND CURRENT ILLNESSES. PT LEFT WITH CALL LIGHT IN REACH.
[2024-08-06] MEDS ORDERED: LISINOPRIL40 MG PO (16:58)
[2024-08-06] MEDS ORDERED: HYDROXYZINE HCL25 MG PO (16:59)
[2024-08-06] MEDS ORDERED: SUMATRIPTAN SUC50 MG PO (17:02)
--- NOTE | 2024-08-06 17:50 | NUR ---
PT LAYING IN BED WITH EYES CLOSED PT CHEST RISE EQUAL BILAT PT HAS NO CONCERNS AT THIS TIME. CALL LIGHT WITHIN REACH.
[2024-08-06 18:15] VITALS: BP 108/87
[2024-08-06 18:16] VITALS: BP 108/87
--- NOTE | 2024-08-06 18:57 | NUR ---
PT BOYFRIEND SHOWED UP WITH PT SMALL PUPPY APPROVED BY [employer]. PT HAS NO CONCERNS AT THIS TIME CALL LIGHT WITHIN REACH. PT STATES PAIN MEDICATION HAVE BEEN WORKING ESPECIALLY THE DILAUDID WORKS BEST.
--- NOTE | 2024-08-06 19:12 | NUR ---
PATIENT IN BED AT THIS TIME. SLEEVE SETTER LOCKSTITCH CHARTED VITALS AND I&O'S. CALL LIGHT WITHIN REACH, NO FURTHER NEEDS AT THIS TIME.
--- NOTE | 2024-08-06 19:30 | NUR ---
PATIENT CALLED TO USE THE BATHROOM TO VOID. 1 PA. PATIENT ON W/C TO THE BATHROOM. PATIENT ABLE TO SELF TRANSFER TO AND FROM THE W/CHAIR.
--- NOTE | 2024-08-06 19:36 | NUR ---
REPORT RECEIVED FROM CT MARSHALL. pt RESTING IN THE BED. pt DENIES ANY NEEDS AT THIS TIME. CALL LIGHT WITHIN REACH. BOARD UPDATED.
[2024-08-06] MEDS ORDERED: MEROPENEM 500 MG in SODIUM CHLORIDE 0.9% 100 ML IV SCH (20:00)
--- NOTE | 2024-08-06 20:20 | NUR ---
ASSESSMENT AND VITAL SIGNS DONE. pt C03/30 PAIN. PRN PAIN MEDS ADMINISTERED. SCHEDULED MEDS ADMINISTERD. pt DENIES ANY OTHER NEEDS AT THIS TIME. IV ABX INFUSING PER ORDER. IVF INFUSING PER ORDER. IV ASSESSED, WNL. CALL LIGHT WITHIN REACH.
[2024-08-06 20:34] VITALS: BP 110/56
[2024-08-06] MEDS ORDERED: MELATONIN 3 MG TAB PO PRN (21:00)
[2024-08-06] MEDS ORDERED: PRAZOSIN HCL 5 MG CAP PO SCH (21:00)
[2024-08-06] MEDS ORDERED: levETIRAcetam 500 MG TAB PO SCH (21:00)
--- NOTE | 2024-08-06 23:30 | NUR ---
pt CALLED BECAUSE HER IV WAS BEEPING. IVF BAG WAS EMPTY. BAG WAS REPLACED. pt DENIES ANY OTHER NEED AT THIS TIME. CALL LIGHT WITHIN REACH.
[2024-08-07] VITALS (10 sets, daily range): BP systolic 91–157; BP diastolic 56–125
--- NOTE | 2024-08-07 02:00 | NUR ---
IN RM TO HANG IV ABX. pt RESTING IN THE BED WITH EYES CLOSED. RR EVEN AND UNLABORED. CALL LIGHT WITHIN REACH.
--- NOTE | 2024-08-07 03:38 | NUR ---
pt CALLED TO REQUEST PRN PAIN MEDS. pt C/O 02/27 PAIN. PRN PAIN MEDS AT THIS TIME. pt DENIES ANY OTHER NEEDS AT THIS TIME. CALL LIGHT WITHIN REACH.
--- NOTE | 2024-08-07 05:30 | NUR ---
pt RESTING IN THE BED. LAB IN THE TO DRAW BLOOD. pt STATES HER PAIN IS BETTER AT THIS TIME. pt DENIES ANY NEEDS AT THIS TIME. CALL LIGHT WITHIN REACH.
[2024-08-07 06:02] LABS: HEMATOCRIT 37.2 % (35.0-50.0); HEMOGLOBIN 12.2 g/dL (12.0-18.0); MCH 26.7 (27-36); MCHC 32.9 g/dl (30-36); MCV 81.1 fl (81-99); PLATELET COUNT 243 K/uL (140-440); RBC 4.59 M/ul (4.3-5.7); RDW 13.8 (10.5-15.0)
[2024-08-07 06:13] LABS: ANION GAP 12.3 (7-21); BUN/CREATININE RATIO 13.59 (6.0-28.6); CALCIUM 7.9 mg/dL (8.5-10.1); CREATININE, SERUM 1.03 mg/dL (0.55-1.02); POTASSIUM 4.3 mmol/L (3.5-5.1)
[2024-08-07 06:29] LABS: EOSINOPHILS, MANUAL DIFF 3; LYMPHOCYTES, MANUAL DIFF 27; MONOCYTES, MANUAL DIFF 3; NEUTROPHILS, MANUAL DIFF 67
--- NOTE | 2024-08-07 07:26 | NUR ---
PT MONING REPORT RECIEVED FROM JOANNA MURPHY PT LAYING IN BED WITH EYES CLOSED CHEST RISE EQUAL BILAT. RN REPORTED PT WOKE UP LAST NIGHT AT 0300 FROM PAIN AND WAS GIVEN PRN PAIN MEDICATION (SEE EMAR) PT TOLERATED WELL AND HAS NO FURTHER NEEDS AT THIS TIME CALL LIGHT WITHIN REACH.
--- NOTE | 2024-08-07 09:04 | NUR ---
PT SITTING UP IN BED EATING BREAKFAST. CALL LIGHT WITHIN REACH.
--- NOTE | 2024-08-07 10:28 | NUR ---
UR CLINICAL REVIEW: [facility] IN[facility] CRITERIA FOR UTI ODS [facility] IN[facility] 08/06/24 @ 1154 ORDER [facility] FAXED FOR AUTH REVIEW DISCHARGE TO HOME WHEN STABLE 08/09/24
--- NOTE | 2024-08-07 10:34 | NUR ---
VISITED DURING SPIRITUAL CARE ROUNDS. PT INITIALLY APPEARED SUBDUED AND NON-INTERACTIVE. DECLINED CERTIFIED MEDICAL RECORDS CODER VISIT. DIRECTOR E LEARNING PROVIDED SUPPORTIVE PRESENCE, HOSPITALITY, PRAYER, FACILITATED INTERACTION WITH THERAPY ANIMAL. PT BECOME MORE ANIMATED AND INTERACTIVE DURING SESSION WITH THERAPY ANIMAL. EXPRESSED GRATITUDE FOR VISIT.
--- NOTE | 2024-08-07 10:35 | NUR ---
PATIENT IN BED WATCHING TV AT THIS TIME. VITALS AND I&O'S DONE AND CHARTED. BLOOD PRESSURE HIGH, RN NOTIFIED. PATIENT COMPLAINING OF NAUSEA AND PAIN, RN NOTIFIED. CALL LIGHT IN REACH. NO FURTHER NEEDS AT THIS TIME.
--- NOTE | 2024-08-07 10:51 | NUR ---
PT STATES SHE IS NAUSEOUS AND IS STILL IN PAIN AFTER USING RESTROOM TO VOID. MEDS GIVEN FOR BOTH. PT SITTING UP IN BED WATCHING TV. CALL LIGHT WITHIN REACH. NO ADDITIONAL REQUESTS AT THIS TIME.
--- NOTE | 2024-08-07 10:51 | NUR ---
PT NOT AVAILABLE FOR VISIT. PROVIDED PRAYER.
--- NOTE | 2024-08-07 11:34 | NUR ---
Spoke with Melanie. She is teaful stating "this is not a way to live with allher pain". 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 She was seeing Dr. Nassar, and states her medications were cut in half. She would like a pain clinic, but all have said she is "too" complicated and will not follow her. She states she is working with Dr. Arzola and has been referred to urology in [place]. She does unsure of the name of the DR. or the clinic. She lives with her SO. Because of her CIDP she does not walk and spends 99% of her time in a wc. She lives in a [facility] [place] and is able to get to and from the bathroom on her own. Her SO does the returned goods repairer, shopping, and cooking. She denies any needs, but would like assistance for a pain clinic. We discussed her [employer] insurance and she denies contacting them. I will look on their site for a number for her to call. She states as her health has declined, she has become more depressed. She uses food stamps and has SSI. A food box is delivered from the [employer].
--- NOTE | 2024-08-07 12:04 | NUR ---
RECHECKED PATIENTS BLOOD PRESSURE UPON RN REQUEST. RN NOTIFIED OF NEW BLOOD PRESSURE. PATIENT SITTING UP IN BED WATCHING TV AT THIS TIME.
--- NOTE | 2024-08-07 13:17 | NUR ---
PT STATES PAIN 8/10 AND REQUESTED PAIN MEDICATION. MED GIVEN. PT WATCHING TV SITTING UP IN BED. CALL LIGHT WITHIN REACH.
--- NOTE | 2024-08-07 14:30 | NUR ---
Printed Contact List for [facility] phone numbers for representatives Medical/Behavior Health and gave to
--- NOTE | 2024-08-07 16:05 | NUR ---
PT SITTING IN BED MAKING HER CRAFTS. PT REPORTING PAIN OF 7-10 AND GIVEN PRN OXY AND TYLONOL. PT REPORTED SHE DID NOT FEEL NEED TO VOID. PT HAS NO OTHER CONCERNS AT THIS TIME. CALL LIGHT WITHIN REACH.
[2024-08-07] MEDS ORDERED: HYDROmorphone HCL 2 MG/ML VIAL IV PRN (18:00)
--- NOTE | 2024-08-07 18:49 | NUR ---
PT AMBULATED TO THE RESTROOM WITH HELP FROM INSULATION CUTTER. PT VOIDED 250ML IN THE HAT. BUT THE PT DID NOTE THAT IT WAS VERY PAINFUL. PT URINE YELLOW WITH SEDIMENT. PT WAS GIVEN PRN PAIN MEDS FOR PAIN 9-10 (SEE EMAR). PT HAS NO OTHER CONCERNS AT THIS TIME CALL LIGHT WITHIN REACH.
--- NOTE | 2024-08-07 19:10 | NUR ---
REPORT RECEIVED FROM DIANA MARSHALL. pt RESTING IN THE BED. BOARD UPDATED. pt DENIES ANY OTHER NEEDS AT THIS TIME. CALL LIGHT WITHIN REACH.
--- NOTE | 2024-08-07 20:36 | NUR ---
DEPUTY OF COUNTER INTELLIGENCE OBTAINED VITALS AND I&O. PT STATES SHE WOULD LIKE SOMETHING FOR PAIN. RN NOTIFED. PT STATES NO FURTHER NEEDS AT THIS TIME. CALL LIGHT WITHIN REACH.
--- NOTE | 2024-08-07 20:45 | NUR ---
ASSESSMENT AND VITAL SIGNS DONE. SCHEDULED AND PRN PAIN MEDS ADMINISTERED. pt C/O 03/30 PAIN. pt DENIES ANY OTHER NEEDS AT THIS TIME. CALL LIGHT WITHIN REACH.
--- NOTE | 2024-08-07 22:40 | NUR ---
REASSESSED PAIN pt C/O 03/30 PAIN. PRN PAIN ADMINISTERED. pt DENIES ANY OTHER NEEDS AT THIS TIME. CALL LIGHT WITHIN REACH.
[2024-08-08] VITALS (8 sets, daily range): BP systolic 104–152; BP diastolic 68–93
--- NOTE | 2024-08-08 01:10 | NUR ---
REASSESSED PAIN. pt C/O 03/30 PAIN. PRN PAIN MEDS ADMINISTERED. pt DENIES ANY OTHER NEEDS AT THIS TIME. CALL LIGHT WITHIN REACH. PRN ANXIETY MEDS ADMINISTERED AT THIS TIME.
--- NOTE | 2024-08-08 03:50 | NUR ---
pt SITTING ON THE EDGE OF THE BED DOING HER BEADING. pt DENIES ANY OTHER NEEDS AT THIS TIME. CALL LIGHT WITHIN REACH.
--- NOTE | 2024-08-08 05:00 | NUR ---
GARBAGE TRUCK HELPER AND RN OBTAINED VITALS. GARBAGE TRUCK HELPER ASSISTED PT INTO WHEELCHAIR TO GO TO THE BATHROOM. PT VOIDED AND ASSISTED BACK TO BED. I&O OBTAINED AND DOCUMENTED. PT STATES NO FURTHER NEEDS AT THIS TIME. CALL LIGHT WITHIN REACH.
[2024-08-08 06:24] LABS: ALBUMIN 3.1 g/dL (3.4-5.0); ANION GAP 14.2 (7-21); BUN/CREATININE RATIO 11.76 (6.0-28.6); CALCIUM 8.2 mg/dL (8.5-10.1); CREATININE, SERUM 1.02 mg/dL (0.55-1.02); POTASSIUM 4.2 mmol/L (3.5-5.1)
[2024-08-08 06:40] LABS: BASOPHILS 0.6 % (0-2); EOSINOPHILS 2.7 % (0-6); HEMATOCRIT 36.2 % (35.0-50.0); HEMOGLOBIN 11.8 g/dL (12.0-18.0); MCH 26.6 (27-36); MCHC 32.7 g/dl (30-36); MCV 81.5 fl (81-99); NEUTROPHILS 64.7 % (39-80); PLATELET COUNT 281 K/uL (140-440); RBC 4.44 M/ul (4.3-5.7); RDW 14.1 (10.5-15.0)
--- NOTE | 2024-08-08 07:50 | NUR ---
PT SITTING ON BED, PT DID ASK ABOUT A MEDICATION SHE STATES SHE TAKES KRATOM. THIS RN MADE CHARGE NURSE AWARE FOR JUJU COLLADO. PT REPORTS NO OTHER NEEDS AT THIS TIME
--- NOTE | 2024-08-08 07:59 | NUR ---
Completed Case Management [facility] referral form and faxed face sheet, ER note, H&P, progress note, labs, imaging to [facility] care coordination team.
--- NOTE | 2024-08-08 08:05 | NUR ---
PT REPORT RECIEVED FROM JOANNA MURPHY. PT REPORTED NAUSEA, AND PAIN 03/30. PT GIVEN PRN ZOFRAN AND PRN DILAUDED (SEE EMAR). PT HAS NO OTHER NEEDS AT THIS TIME CALL LIGHT WITHIN REACH.
--- NOTE | 2024-08-08 10:30 | NUR ---
Spoke with Melanie. Updated I sent her chart to [facility] requesting CM for her. She denies other needs.
--- NOTE | 2024-08-08 11:47 | NUR ---
PT LAYING IN BED WITH EYES CLOSED CHEST RISE EQUAL BILAT. PT HAS NO CONCERNS AT THIS TIME PT CALL LIGHT WITHIN REACH.
--- NOTE | 2024-08-08 12:20 | NUR ---
SET PATIENT UP FOR HER SHOWER SHE SAID A FAMILY MEMBER IS COMING IN TO GIVE HER A SHOWER.
--- NOTE | 2024-08-08 12:24 | NUR ---
PT SITTING UP IN BED WORKING ON HER CRAFTS. PT HAS NO CONCERNS AT THIS TIME CALL LIGHT WITHIN REACH.
--- NOTE | 2024-08-08 13:05 | NUR ---
PT SITTING ON EDGE OF BED DOING HER CRAFT BEAD WORK. PT REQUESTED PAIN MEDICATION FOR INCREASED PAIN (SEE EMAR). PT HAS NO OTHER CONCERNS AT THIS TIME. CALL LIGHT WITHIN REACH.
--- NOTE | 2024-08-08 13:40 | NUR ---
PT REPORTED IV LEAKING THIS RN AND JOANNA TAYLOR CHANGED THE PT DRESSING AND IV ENTENSION. PT IV HAD GOOD BLOOD DRAW BACK WITH NO LEAKING OR PAIN DURING FLUSH WITH 10ML SALINE. PT HAS NO OTHER CONCERNS AT THIS TIME.
--- NOTE | 2024-08-08 16:43 | NUR ---
PT REPORTED THAT HER IV WAS LEAKING. THIS RN AND JOANNA TAYLOR INSPECTED THE IV AND DETERMINED IT NEEDED TO BE REMOVED. PT ULTRASOUND GUIDED IV WAS REMOVED. SPENCER SORIA WAS CONTACTED ABOUT GETTING A NEW ULTRASOUND GUIDED IV PUT IN. PT WAS ENCOURAGED TO VOID BUT PT STATED SHE HAS NOT HAD THE URGE TO VOID AND WILL LET US KNOW WHEN SHE DOES. PT ALSO EXPRESSED THE FEAR OF VOIDING DUE TO EXTREME PAIN. PT HAS CALL LIGHT WITHIN REACH.
--- NOTE | 2024-08-08 17:05 | NUR ---
DISCUSSED CONTINUED PLAN OF CARE WITH MD HARRIS. SPOKE ON THE CONCERNS OF PT LOW URINE OUTPUT DURING THIS RN'S SHIFT WELL LAST SYSTOLIC BP 104. WANTS TO RESTART FLUIDS VIA IV ONCE NEW IV IS PLACED. CONTINUE TO MONITOR I/OS AND ENCOURAGE VOIDING. MD HARRIS ALSO SPOKE ON DECREASING PT PRN DILAUDED DOSE.
[2024-08-08] MEDS ORDERED: LACTATED RINGER'S 1,000 ML IV SCH (17:15)
[2024-08-08] MEDS ORDERED: HYDROmorphone HCL 1 MG/ML SYR IV PRN (17:15)
--- NOTE | 2024-08-08 18:00 | NUR ---
CALLED FLOAT NURSEYURI FOR ULTRASOUND IV. YURI WILL BE DOWN WHEN AVAILABLE.
--- NOTE | 2024-08-08 19:55 | NUR ---
Pt report received from JOANNA Ambriz and JOANNA Bah. Pt is resting on her right side in bed, and appears to be crying. When asked, she rates her pain a 9 out of 10 in her left flank. Advised pt that I will review her med list and return. White board updated.
--- NOTE | 2024-08-08 20:11 | NUR ---
CALL LIGHT ANSWERED. PT NEEDED TO USE BATHROOM. TENTERER ASSISTED PT INTO WHEELCHAIR AND TO THE BATHROOM. PT VOIDED AND ASSISTED BACK TO BED. PT COMPLAINING OF NAUSEA AND PAIN. RN NOTIFED. TENTERER OBTAINED VITALS AND I&O. PT STATES NO FURTHER NEEDS AT THIS TIME. CALL LIGHT WITHIN REACH.
--- NOTE | 2024-08-08 22:08 | NUR ---
Assessed pt's pain level at 2139 hours, and she stated the oxycodone did not help. At this time, when I entered the room to administer IV hydromorphone per emar PRN, noted that the pt was resting on her right side, eyes closed, snoring even and non-labored respirations. Side rails up x3, television on, call light in reach. Will hold IV pain meds at this time.
--- NOTE | 2024-08-08 22:47 | NUR ---
WHEN IN FOR ASSESSMENT EARLIER, PT STATES THAT SHE DID VOID IN THE TOILET AND STATED THAT IT SOSA.
--- NOTE | 2024-08-09 00:28 | NUR ---
In with pt for IV abx complete. Pt is asleep, breathing regular, even, and non-labored, on her right side in bed. Television on. Side rails up x3, call light in reach.
--- NOTE | 2024-08-09 02:19 | NUR ---
In with pt for hourly rounding and IV Pump alarming "air in line". IVP assessed and merrem restarted at ordered rate. Pt is resting with eyes closed, on her right side. Breathing is regular, even, and non-labored with an occasional snore. Side rails up, call light in reach.
--- NOTE | 2024-08-09 02:30 | NUR ---
CARE ASSUMED OF PT. REPORT RECEIVED FROM DARREL AMRSHALL.
--- NOTE | 2024-08-09 03:20 | NUR ---
CALL LIGHT ANSWERED. PT NEEDED TO USE BATHROOM. PUMP ERECTOR ASSISTED PT INTO WHEELCAHIR AND INTO BATHROOM. PT VOIDED AND ASSISTED BACK TO BED. OUTPUT MEASURED. PT COMPLAINING OF NAUSEA AND PAIN. PRIMARY RN NOTIFED. PT STATES NO FURTHER NEEDS AND CALL LIGHT WITHIN REACH.
--- NOTE | 2024-08-09 03:33 | NUR ---
PT HAD TOLD CHARGER TESTER SHE WAS WANTING PAIN MEDICATION AND NAUSEA MEDICATION, IN TO CHECK ON PT AND SHE DOES C/O 8/10 ABDOMINAL PAIN WITH NAUSEA. 10MG OXYCODONE GIVEN AND 4MG IV ZOFRAN GIVEN PER EMAR. PT
[2024-08-09 05:19] VITALS: BP 129/69
--- NOTE | 2024-08-09 05:23 | NUR ---
PT CALLS TO C/O 03/30 ABDOMINAL PAIN AND IS REQUESTING MORE PAIN MEDICATION. 1MG IV DILAUDID GIVEN PRN.
[2024-08-09 05:49] LABS: BASOPHILS 0.7 % (0-2); EOSINOPHILS 3.5 % (0-6); HEMATOCRIT 34.3 % (35.0-50.0); HEMOGLOBIN 11.2 g/dL (12.0-18.0); LYMPHOCYTES 26.8 % (24-44); MCH 27.2 (27-36); MCHC 32.8 g/dl (30-36); MCV 82.9 fl (81-99); MONOCYTES 6.6 % (0-12); NEUTROPHILS 62.4 % (39-80); PLATELET COUNT 252 K/uL (140-440); RBC 4.14 M/ul (4.3-5.7); RDW 14.4 (10.5-15.0)
--- NOTE | 2024-08-09 06:00 | NUR ---
PT RESTING IN BED, RESP EVEN AND UNLABORED, DENIES NEEDS AT THIS TIME.
[2024-08-09 06:05] LABS: ANION GAP 11.2 (7-21); BUN/CREATININE RATIO 11.11 (6.0-28.6); CALCIUM 7.9 mg/dL (8.5-10.1); CREATININE, SERUM 0.9 mg/dL (0.55-1.02); MAGNESIUM 1.8 mg/dL (1.8-2.4); POTASSIUM 4.2 mmol/L (3.5-5.1)
--- NOTE | 2024-08-09 07:49 | NUR ---
RECIEVED SHIFT REPORT. PT IS RESTING IN BED, EYES CLOSED. BREATHING EVEN AND UNLABORED. CALL LIGHT IN REACH
--- NOTE | 2024-08-09 09:20 | NUR ---
MORNING ASSESSMENT COMPLETE. PT RESTING IN BED, THIS RN HAD TO WAKE PT UP TO GIVE MORNING MEDS. PT WAS RATING PAIN 03/30, REQUESTED PRN MEDICATION, ADMINSTERED (PER EMAR). PT DENIES NEEDS AT THIS TIME. BREAKFAST PLACED IN FRONT OF PT. ENCOURAGED TO EAT. CALL LIGHT IN REACH.
--- NOTE | 2024-08-09 09:26 | NUR ---
UR CONCURRENT REVIEW: [facility]- [facility] INPT CRITERIA FOR UTI, VARIANCE FOR GL DAY 3 ENTERED. URINE CULTURES PENDING CONTINUED NEED FOR IV ANTIBIOTICS AND IV PAIN CONTROL [facility] INPT 08/06/24 @ 1154 ORDER MATCHES REG AUTHORIZED 08/03/24-08/08/24. WILL SEND UPDATED CLINICALS FOR FURTHER AUTH. DISCHARGE TO HOME WHEN STABLE 08/12/24
--- NOTE | 2024-08-09 09:51 | NUR ---
PT BACK FROM BATHROOM. TEARFUL, IN PAIN 05/30. PRN PAIN MEDICATION ADMINSITERED (PER EMAR). DENIES NEEDS AT THIS TIME. CALL LIGHT IN REACH
[2024-08-09 09:59] VITALS: BP 116/95
--- NOTE | 2024-08-09 10:25 | NUR ---
Spoke with Melanie. She is tearful at times, stating no one will help her with her pain. She has not called the numbers I gave her yesterday for [facility] to help with pain clinic. I updated I did check with Dr. Arzola office and a referral was made to Dr. Jarrett Arvizu at [facility] urology on December 21. When I called his office, they have not received the referral. I called Dr. Arzola office back and they resent the referral to [phone]. Phone number and Dr's name given to Melanie and requested she call next week to confirm his office received her referral. If not, she needs to call Dr. Arzola office and notify them.
--- NOTE | 2024-08-09 11:19 | NUR ---
VISITED DURING SPIRITUAL CARE ROUNDS. PT SITTING UP IN BED APPEARED SAD, STATED FEELING SAD AND WORN OUT. THERAPY TECHNICIAN PROVIDED SUPPORTIVE PRESENCE, HOSPITALITY, EMPATHETIC LISTENING. PT EXPRESSED GRATITUDE.
--- NOTE | 2024-08-09 11:57 | NUR ---
PT SITTING IN BED, WORKING ON BEADING. PT REQUESTING PAIN MEDICATION FOR 8/10 PAIN. PRN MEDICATION ADMINSTERED (PER EMAR). DENIES NEEDS AT THIS TIME. CALL LIGHT IN REACH
[2024-08-09 13:43] VITALS: BP 134/87
--- NOTE | 2024-08-09 13:44 | NUR ---
RN IN ROOM TO ADDRESS ALARMING IV PUMP - ABX INFUSION COMPLETE. NEW IVF BAG STARTED. PT RATES PAIN 8/10, PRN OXY AND ZOFRAN ADMINISTERED. PT DENIES FURTHER NEEDS. CALL LIGHT IN REACH.
--- NOTE | 2024-08-09 14:20 | NUR ---
PATIENT TEARFUL. STATES PAIN IS INTOLERABLE, RN IN ROOM AT THIS TIME. INFORMED PATIENT DR. B[facility] HAS RESENT REFERRAL TO [facility] BECAUSE THEY DID NOT RECEIVE INITIAL REFERRAL. PHONE NUMBER PROVIDED TO PATIENT FOR CLINIC TO FOLLOW-UP ON REFERRAL.
--- NOTE | 2024-08-09 14:48 | NUR ---
PT CALLED THE NURSES STATION [facility]. SHE REPORTS UNBEARABLE PAIN THROUGH HER GROIN AND INTO HER BACK. SHE HAS ATTEMPTED A BM IN THE LAST 30 MINUTES, WITH NO RESULTS.
--- NOTE | 2024-08-09 14:57 | NUR ---
THIS RN IN ROOM TO HANG ABX. PT IS CRYING IN BED, IN PAIN. STATED NOHEMY RN IN ROOM TO HELP PT TO THE BATHROOM. PT STATED "THIS IS WHAT I HAVE BEEN TELLING YOU GUYS, IT HURTS WHEN I GO TO THE BATHROOM". THIS RN ADMINISTERED PRN PAIN MEDICATION (PER EMAR). PT REQUESTING TO SHOWER IN AWHILE. THIS RN ENCOURAGED PT TO CALL WHEN READY. CALL LIGHT IN REACH
[2024-08-09] MEDS ORDERED: OXYCODONE HCL5 MG PO (15:12)
[2024-08-09] MEDS ORDERED: BACTRIM DS TAB1 EACH PO (15:15)
--- NOTE | 2024-08-09 17:32 | NUR ---
PT AWAKE IN BED. WAITING FOR ABX TO FINISH TO SHOWER. CALL LIGHT IN REACH.
--- NOTE | 2024-08-09 17:50 | NUR ---
PT IS CRYING IN BED, REQUESTING PAIN MEDICATION PRIOR TO TAKING A SHOWER. PRN MEDICATIONS ADMINISTERED (PER EMAR).
--- NOTE | 2024-08-09 19:16 | NUR ---
REPORT REC'D FROM CJ. PT REMAINS IN SHOWER. PT VERBALIZED SHE WOULD NEED A TAXI RIDE HOME. PT INFORMED TRANSPORT IS BEING ARRANGED FOR 1999. SHE STATED HER BOYFRIEND WOULD NEED TO BE CALLED TO START WALKING HERE SINCE HE HAS THE KEYS. CALL PLACED TO FARIHA DANIELS LEFT WITH TEACHING MANAGER TIME AND RETURN NUMBER TO CONTACT NURSING. PT INFORMED
[2024-08-09 19:30] VITALS: BP 151/107
[2024-08-09] MEDS ORDERED: OXYCODONE/ACETAMINOPHEN 1 TAB HOME.PACK PO ONE (19:45)
--- NOTE | 2024-08-09 19:46 | NUR ---
PT HAS DELAYED DISCHARGE DUE TO ABX AND THEN REQUESTING SHOWER. CURRENTLY PT STATES SHE DOES NOT HAVE A RIDE BOYFRIEND CAR IS NOT WORKING. OFFER HER A TAXI FOR TRANSPORTATION, BUT PT HAS BEEN TRYING TO FIND ANOTHER RID AT THIS TIME. THERE IS NO SET RIDE AT THIS TIME PATIENT HAS BEEN ON THE PHONE. CALL TO MD AT THIS TIME TO GET PAIN MEDICATION DOSE PACK FROM THE PHARMACY. PER MD, PERCOCET 5/325MG 1-2 TABLETS EVERY 6HOURS NEEDED FOR PAIN, #6 ORDERED. AWARE AND CARSON. FIELD PRODUCER-ANITA INFORMED AND GETTING MEDS. TAXI IS NOW BEEN CALLED BY [employer] AND WE WILL GET HER TO FRONT DOOR FOR TRANSPORTATION HOME. NOC RN WORKING WITH PATIENT AT THIS TIME ON DISCHARGE.
--- NOTE | 2024-08-09 20:00 | NUR ---
confirmed with [employer] no taxi care ride has been called for pt, care ride now confirmed and will moss picker pt and her fiance at front entrance by er lobby doors in 15-20 minutes, confirmed address for care ride is [address] [place] [address]. uranium processing supervisor and primary rn both made aware.
--- NOTE | 2024-08-09 20:28 | NUR ---
PT DISCHARGED HOME WITH SO VIA TAXI. PT PROVIDED PAIN MEDICATION QTY 6 FOR OVERNIGHT USE UNTIL ABLE TO GO TO PHARMACY IN THE AM. 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 RN EMPHASIZED NEED TO GET RX FOR ABX AND PAIN MEDICATIONS FIRST THING IN THE AM. PT ESCORTED IN HER W/C TO ED WAITING FOR TAXI BY STAFF AND SO.
== END 2024-08-09 20:10 | disposition home or self-care (01) | DRG 872 ==
LOC: ED 08:52 → MS 11:55
PROVIDERS: Emergency Medicine; Student in an Organized Health Care Education/Training Program; ADMIT Student in an Organized Health Care Education/Training Program; ATTEND Student in an Organized Health Care Education/Training Program
DX: A41.9 Sepsis, unspecified organism (principal); N10 Acute pyelonephritis; G61.81 Chronic inflammatory demyelinating polyneuritis; N20.0 Calculus of kidney; G40.909 Epilepsy, unspecified, not intractable, without status epilepticus; F43.10 Post-traumatic stress disorder, unspecified; I10 Essential (primary) hypertension; F41.1 Generalized anxiety disorder; G89.4 Chronic pain syndrome; G43.909 Migraine, unspecified, not intractable, without status migrainosus; Z88.0 Allergy status to penicillin; Z88.1 Allergy status to other antibiotic agents; Z88.8 Allergy status to other drugs, medicaments and biological substances; Z91.041 Radiographic dye allergy status; Z79.899 Other long term (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; G60.0 Hereditary motor and sensory neuropathy; Z87.891 Personal history of nicotine dependence; Z98.890 Other specified postprocedural states
CPT/HCPCS: 36415; 74176; 80048; 80053; 81001; 82040; 83605; 83690; 83735; 84703; 85025; 87088; 96365; 96375; 96376; 99285-25; A9270; J1171; J1650; J1953; J2185; J2405; J7030; J7121; Q0177

== ENCOUNTER 2024-08-12 16:31 | Emergency (ER) | payer OTHER ==
[~2024-08-12] VITALS: Ht 172.7 cm; Wt 127.3 kg
[~2024-08-12 16:31] MED LIST changes: +HYDROXYZINE HCL25 MG PO; +LISINOPRIL40 MG PO; +OXYCODONE HCL5 MG PO; +SUMATRIPTAN SUC50 MG PO
[2024-08-12] MEDS ORDERED: ondansetron HCL 4 MG/2 ML VIAL IV PRN (17:30)
[2024-08-12 17:45] LABS: BASOPHILS 0.5 % (0-2); EOSINOPHILS 2.2 % (0-6); HEMATOCRIT 42.4 % (35.0-50.0); HEMOGLOBIN 13.5 g/dL (12.0-18.0); LYMPHOCYTES 24.9 % (24-44); MCH 26.1 (27-36); MCV 81.5 fl (81-99); MONOCYTES 7.2 % (0-12); NEUTROPHILS 65.2 % (39-80); PLATELET COUNT 346 K/uL (140-440); RDW 14.1 (10.5-15.0)
[2024-08-12] MEDS ORDERED: ONDANSETRON 4 MG TAB ODT SL ONE (17:45)
[2024-08-12 18:08] LABS: ALBUMIN 3.5 g/dL (3.4-5.0); ALBUMIN/GLOBULIN RATIO 0.92 (1.1-2.4); ANION GAP 15.9 (7-21); BILIRUBIN, TOTAL 0.2 ng/dL (0.2-1.0); BUN/CREATININE RATIO 11.82 (6.0-28.6); CALCIUM 8.6 mg/dL (8.5-10.1); CREATININE, SERUM 0.93 mg/dL (0.55-1.02); POTASSIUM 3.9 mmol/L (3.5-5.1); PROTEIN, TOTAL 7.3 g/dL (6.4-8.2)
[2024-08-12] MEDS ORDERED: MORPHINE SULFATE 4 MG/ML VIAL IV ONE (19:45)
[2024-08-12 21:04] LABS: BILIRUBIN, URINE NEGATIVE (negative); BLOOD/HGB, URINE TRACE-I (Negative); KETONE, URINE NEGATIVE (Negative); LEUK ESTERASE, URINE MODERATE (negative); NITRITE, URINE POSITIVE (negative); PH, URINE 7.5 (5-7)
[2024-08-12 21:09] LABS: EPITHELIAL CELLS, URINE SQUAMOUS 4+ /lpf (0-1+); WHITE BLOOD CELLS, URINE 21-40 /HPF (0-5)
[2024-08-12 21:10] LABS: BACTERIA, URINE RARE /hpf (negative); CASTS, URINE NONE SEEN \\lpf; COLLECTION TYPE, URINE CLEAN CATCH; CRYSTALS, URINE NONE SEEN (0-1+); REFLEX CULTURE, URINE No (No)
[2024-08-12] MEDS ORDERED: HYDROmorphone HCL 1 MG/ML SYR IV PRN (22:00)
[2024-08-12] MEDS ORDERED: LACTATED RINGER'S 1,000 ML IV ONE (22:00)
[2024-08-12] MEDS ORDERED: HYDROCODON-ACE1 EA10 PO (22:01)
[2024-08-12] MEDS ORDERED: HYDROCODONE BIT/ACETAMINOPHEN 5/325 MG 1 TAB HOME.PACK PO ONE (22:15)
[2024-08-12 23:18] VITALS: BP 101/57
== END 2024-08-12 23:23 | disposition home or self-care (01) ==
LOC: ED 16:31
PROVIDERS: Emergency Medicine
DX: N39.0 Urinary tract infection, site not specified (principal); G43.909 Migraine, unspecified, not intractable, without status migrainosus; G61.81 Chronic inflammatory demyelinating polyneuritis; E03.9 Hypothyroidism, unspecified; Z87.891 Personal history of nicotine dependence; Z90.2 Acquired absence of lung [part of]; Z88.6 Allergy status to analgesic agent; Z88.0 Allergy status to penicillin; Z88.8 Allergy status to other drugs, medicaments and biological substances; Z88.1 Allergy status to other antibiotic agents; Z88.5 Allergy status to narcotic agent; Z91.030 Bee allergy status; Z91.041 Radiographic dye allergy status; Z88.4 Allergy status to anesthetic agent; Z79.899 Other long term (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
CPT/HCPCS: 36415; 80053; 81001; 84703; 85025; 96374; 96375; 99284-25; A9270; J1171; J2270; J2405; J7121